=== PATIENT | female | born 2000 | race Caucasian/White ===

== ENCOUNTER 2020-05-27 21:39 | Emergency (ER) | payer MEDICAID, SELFPAY ==
[2020-05-27 21:51] VITALS: BP 124/75; PULSE 80; RESP 18; TEMP 36.9; O2SAT 98; BMI 25.6
--- NOTE | 2020-05-27 21:58 | ED.GENADULT ---
HPI - General Adult General Chief complaint: General Medical Stated complaint: Covid Swap Time Seen by Provider: 05/27/20 21:53 Source: patient Mode of arrival: ambulatory Limitations: no limitations History of Present Illness HPI narrative: patient comes to the emergency room requesting a COVID 19 test. Patient states tomorrow at 06:00 she has a flight to [place] and she is required to show approved of a COVID test when she gets there. patient denies any symptoms , patient denies being in contact with anyone who has recently tested positive for COVID-19. Related Data Allergies Allergy/AdvReac Type Severity Reaction Status Date / Time Penicillins [PENICILLINS] Allergy Severe ANGIOEDEMA Verified 05/27/20 21:51 Review of Systems Review of Systems: Constitutional : No Weight loss, No Fever, No Chills, No Night Sweats, No Fatigue, No Malaise ENT/Mouth : No Hearing loss, No Ear Pain, No Nasal Congestion, No Sinus Pain, No Hoarseness, No sore throat, No Rhinorrhea, No Swallowing Difficulty Eyes: No Eye Pain, No Swelling, No Redness, No Foreign Body, No Discharge, No Vision Changes Cardiovascular : No Chest Pain, No SOB, No Dyspnea on Exertion, No Orthopnea, No Edema, No Palpitations Respiratory : No Cough, No Sputum, No Wheezing, No Smoke Exposure, No Dyspnea Gastrointestinal : No Nausea, No Vomiting, No Diarrhea, No Constipation, No abdominal Pain, No Hematochezia, No Melena Genitourinary : no irregular bleeding, No Dysuria, No Urinary Frequency, No Hematuria, No Urinary Incontinence, No Urgency, No Flank Pain, No Urinary Flow Changes, No Hesitancy Musculoskeletal : No joint pain, No Myalgias, No Joint Swelling Skin : No Skin Lesions, No rash Neuro : No Weakness, No Numbness, No Paresthesias, No Loss of Consciousness, No Dizziness, No Headache Psych : No Anxiety/Panic, No Depression, No SI/HI/AH/VH, No Social Issues, Heme/Lymph: No Bruising, No Bleeding,No Lymphadenopathy Endocrine : No Polyuria, No Polydipsia, No Temperature Intolerance PMFSH Past Medical History Medical History Asthma Social History Social History Alcohol intake: never Smoking Status: Never smoker Use of substances other than those prescribed or required for medical reasons: No Advance Directives: No Physical Exam Vital Signs: Vital Signs: Last Vital Signs Temp 98.4 F 05/27/20 21:51 Pulse 80 05/27/20 21:51 Resp 18 05/27/20 21:51 BP 124/75 05/27/20 21:51 Pulse Ox 98 05/27/20 21:51 Body Mass Index 25.6 Appearance: Alert. Oriented X3. No acute distress. Eyes: Pupils equal, round and reactive to light. ENT: Pharynx normal. Neck: Normal inspection. Neck supple. No lymph nodes noted. No crepitus CVS: Normal heart rate and rhythm. Pulses normal. Normal S1 and S2 Respiratory: No respiratory distress. Breath sounds normal. No Wheezing. No rales Abdomen: Soft and nontender. No rigidity. No distention. good BS x4 Skin: Skin warm and dry. Normal skin color. Normal skin turgor. Extremities: No lower extremity edema. No lower extremity edema. No Lacerations. No Rash Neuro: Oriented X 3. No motor deficit. No sensory deficit. Moving all extermities. No slurred speech. Course Course Course Narrative: I discussed with the patient that the COVID results will be available within 72 hours. Patient states that she is okay with the results being 72 hours, she needs to show prove once she is in [place] Discharge Plan Discharge Clinical Impression: Normal physical exam Patient Disposition: Home, Self-Care Instructions: Normal Exam (ED) Additional Instructions: your COVID results will be available within 72 hours, he will receive a phone call with your results. Please follow CDC guidelines for traveling.
== END 2020-05-28 01:11 | disposition home or self-care (01) ==
PROVIDERS: Emergency Provider Emergency Medicine
DX: Z20.828 Contact with and (suspected) exposure to other viral communicable diseases (principal)
CPT/HCPCS: 99283; 99284; U0003

== ENCOUNTER 2020-07-22 17:18 | Emergency (ER) | payer MEDICAID, SELFPAY | END 2020-07-22 19:05 | disposition left against medical advice (07) | PROVIDERS: Emergency Provider Emergency Medicine | DX: U07.1 COVID-19 (principal) ==

== ENCOUNTER 2020-07-25 16:59 | Outpatient (REF) | payer MEDICAID, SELFPAY | END 2020-07-25 17:00 | disposition home or self-care (01) | LOC: HO.LAB 16:59 | PROVIDERS: PCP Registered Nurse; Visit Provider Internal Medicine | DX: Z20.822 Contact with and (suspected) exposure to COVID-19 (principal) | CPT/HCPCS: 36415; C9803; U0003 ==

== ENCOUNTER → 2020-07-27 15:05 | Outpatient (BNVA) | payer MEDICAID, SELFPAY | PROVIDERS: PCP Registered Nurse; Visit Provider Obstetrics & Gynecology | DX: Z76.89 Persons encountering health services in other specified circumstances (principal) ==

== ENCOUNTER → 2020-07-28 14:59 | Outpatient (BNVA) | payer MEDICAID, SELFPAY | PROVIDERS: Visit Provider Obstetrics & Gynecology ==

== ENCOUNTER 2020-08-09 11:27 | Outpatient (REF) | payer MEDICAID, SELFPAY ==
--- NOTE | 2020-08-09 11:38 | US_ITS ---
EXAMINATION: PELVIC ULTRASOUND CLINICAL INFORMATION: Follow up ovarian cysts COMPARISON: Previous CT of the abdomen and pelvis most recent March 2020 and pelvic ultrasound most recent November 2019 TECHNIQUE: Transabdominal and transvaginal pelvic ultrasound was performed. Transvaginal exam was performed for better visualization of the the uterus and ovaries. FINDINGS: The uterus is anteverted and measures 7.2 x 3 x 4.4 cm in dimension. No focal uterine lesion is seen. Endometrial thickness is normal estimated at 0.6 cm. The cervix is normal. The right ovary is enlarged and measures 4 x 2.1 x 3.5 cm, volume 21 mL. There are 2 complex right ovarian cysts. There is a 2.7 x 2.2 x 3.2 cm complex cyst with slightly thickened irregular wall and internal echoes. There is a second smaller 2.2 x 2 x 1.7 cm complex cyst with slightly thickened wall and internal echoes. This is increased from November 2017 ultrasound when a single 1.6 x 1.6 x 1.5 cm complex cyst was seen. The left ovary is enlarged and measures 7.4 x 4.9 x 5.1 cm, volume 97 mL. There is a 5.5 x 4.3 x 5 cm complex left ovarian cyst with low-level internal echoes. This is increased in size from 2.6 x 1.4 x 2.4 cm on previous November 2019 ultrasound exam. There is a smaller left ovarian 1 cm complex cyst with slightly thickened wall and internal echoes. There is a 1.1 cm simple left paraovarian or adnexal cyst. There is no fluid in the pelvis. US/US pelvic complete IMPRESSION: Enlarged ovaries with bilateral complex ovarian cysts. These are increased in size and number compared to previous pelvic ultrasound November 2019. This is similar to most recent CT March 2020. Endometriosis should be considered. Neoplasm cannot be excluded.
[2020-08-09 11:42] LABS: Hematocrit 38.1 % (37-47); Hemoglobin 11.8 g/dl (12.0-16.0); Mean Corpuscular Hemoglobin 24.4 pg (27.0-33.0); Mean Corpuscular Volume 78.7 fL (80-98); Mean Platelet Volume 9.8 fL (9.4-12.3); Platelet Count 246 X10*3/uL (160-400); Red Blood Count 4.84 X10*6/uL (4.20-5.50); Red Cell Distribution Width 15.7 % (11.0-16.0); White Blood Count 6.4 X10*3/uL (4.8-10.8)
== END 2020-08-09 11:28 | disposition home or self-care (01) ==
LOC: HO.US 11:27
PROVIDERS: PCP Registered Nurse; Visit Provider Obstetrics & Gynecology
DX: N83.209 Unspecified ovarian cyst, unspecified side (principal)
CPT/HCPCS: 36415; 76830; 76856; 85027

== ENCOUNTER 2020-08-10 14:01 | Outpatient (REF) | payer MEDICAID, SELFPAY ==
[2020-08-11 06:12] LABS: CA-125 33 U/mL (<35)
== END 2020-08-10 14:02 | disposition home or self-care (01) ==
LOC: HO.LAB 14:01
PROVIDERS: PCP Registered Nurse; Visit Provider Obstetrics & Gynecology
DX: N83.291 Other ovarian cyst, right side (principal); Z88.0 Allergy status to penicillin; R10.2 Pelvic and perineal pain
CPT/HCPCS: 36415; 86304; 99212

== ENCOUNTER → 2020-09-07 08:18 | Outpatient (BNVA) | payer MEDICAID, SELFPAY | PROVIDERS: PCP Registered Nurse; Visit Provider Obstetrics & Gynecology | DX: N90.89 Other specified noninflammatory disorders of vulva and perineum (principal) | CPT/HCPCS: 56405; 99212 ==

== ENCOUNTER → 2020-09-08 08:50 | Outpatient (BNVA) | payer MEDICAID, SELFPAY | PROVIDERS: PCP Registered Nurse; Visit Provider Advanced Practice Midwife | DX: N64.4 Mastodynia (principal); N63.0 Unspecified lump in unspecified breast | CPT/HCPCS: 99212 ==

== ENCOUNTER 2020-09-14 12:52 | Outpatient (REF) | payer MEDICAID, SELFPAY ==
--- NOTE | ~2020-09-14 | US_ITS ---
EXAMINATION: US DIAGNOSTIC ULTRASOUND BREAST, RIGHT CLINICAL INFORMATION: Mastodynia. COMPARISON: None. TECHNIQUE: Ultrasound of the breast is performed with real-time lind scale imaging and color Doppler. FINDINGS: There is no focal suspicious finding. There is no solid mass, architectural abnormality, duct ectasia, or edema in the soft tissue planes. Results are discussed with the patient at time of visit. US/US breast RT limited IMPRESSION: No specific ultrasound findings to suggest malignancy of the right breast. ASSESSMENT: BI-RADS 1: Negative RECOMMENDATION: Clinical management
--- NOTE | ~2020-09-14 | US_ITS ---
EXAMINATION: US DIAGNOSTIC ULTRASOUND BREAST, LEFT CLINICAL INFORMATION: Mastoiditis. COMPARISON: None. TECHNIQUE: Ultrasound of the breast is performed with real-time lind scale imaging and color Doppler. FINDINGS: There is no focal suspicious finding. There is no solid mass, architectural abnormality, duct ectasia, or edema in the soft tissue planes. Results are discussed with the patient at time of visit. US/US breast LT limited IMPRESSION: No specific ultrasound findings to suggest malignancy of the left breast. ASSESSMENT: BI-RADS 1: Negative RECOMMENDATION: Clinical management
== END 2020-09-14 12:53 | disposition home or self-care (01) ==
LOC: HO.MAMMO 12:52
PROVIDERS: Visit Provider Advanced Practice Midwife
DX: N64.4 Mastodynia (principal); N63.25 Unspecified lump in the left breast, overlapping quadrants
CPT/HCPCS: 76642

== ENCOUNTER → 2020-09-22 11:29 | Outpatient (BNVA) | payer MEDICAID, SELFPAY | PROVIDERS: Visit Provider Advanced Practice Midwife ==

== ENCOUNTER → 2020-10-03 11:51 | Outpatient (BNVA) | payer MEDICAID, SELFPAY | PROVIDERS: Visit Provider Obstetrics & Gynecology ==

== ENCOUNTER 2020-10-10 18:54 | Emergency (ER) | payer MEDICAID, SELFPAY ==
--- NOTE | ~2020-10-10 | US_ITS ---
EXAMINATIONS: ULTRASOUND PELVIC, COMPLETE AND DOPPLER INTERROGATION CLINICAL INFORMATION: Right lower quadrant pain. Follow-up ovarian cyst. COMPARISON: 08/09/2020. TECHNIQUE: Transabdominal and transvaginal imaging was performed. Transvaginal imaging was performed for further evaluation of the endometrium and adnexa. Doppler interrogation spectral analysis was performed. FINDINGS: The uterus is of normal size and echogenicity measuring 8.4 x 3.6 x 5.5 cm. A regular homogeneous endometrium is identified measuring 1.1 cm. Both ovaries are of increased size and overall normal echogenicity. The right measures 4.2 x 2.5 x 3.1 cm for a volume of 17.0 cc. This measurement includes an approximately 1.5 x 1.2 x 1.4 cm right ovarian cyst with numerous internal echoes as well as a 2.7 x 2.2 x 2.0 cm cyst with a few internal echoes. The left measures 9.0 x 5.9 x 5.9 cm for a volume of 15.8 cc. This measurement includes an approximately 3.7 x 2.7 x 3.4 cm cyst with numerous internal septations and debris. As well, there is a paraovarian cyst measuring 1.2 x 0.9 x 1.0 cm. As well, there is an approximately 6.2 x 4.4 x 5.0 cm cyst with numerous internal echoes in a paraovarian location. Normal arterial and venous blood flow is present bilaterally. There is small amount of likely physiologic pelvic free fluid. US/US pelvic complete IMPRESSION: No ovarian torsion. Normal uterus and endometrium. Numerous bilateral ovarian cysts are present. The largest cyst is likely paraovarian on the left measuring 6.2 cm in greatest dimension. This compares to 5.6 cm on the prior exam. Many of the cysts contain septations and internal echoes. Consider a follow-up pelvic ultrasound in 3 months to follow the stability in the appearance and size of the aforementioned cysts.
[2020-10-10 20:24] VITALS: BP 122/74; PULSE 88; RESP 16; TEMP 37.1; O2SAT 100; BMI 25.9
[2020-10-10 20:54] LABS: MANUAL DIFF FLAG NO
[2020-10-10 20:56] LABS: Basophils Percent Auto 0.3 % (0-2); Eosinophils Absolute Auto 0.1 X10*3/uL (0.0-0.4); Eosinophils Percent Auto 1.3 % (0-4); Hematocrit 36.2 % (37-47); Hemoglobin 11.3 g/dl (12.0-16.0); Imm Gran Abs Auto 0.02 X10*3/uL (0.00-0.03); Imm Gran Pct Auto 0.2 % (0.0-0.4); Lymphocytes Absolute Auto 3.1 X10*3/uL (1.2-4.9); Lymphocytes Percent Auto 34.8 % (20-40); Mean Corpuscular HGB Conc 31.2 g/dl (31.0-35.0); Mean Corpuscular Hemoglobin 24.3 pg (27.0-33.0); Mean Corpuscular Volume 77.8 fL (80-98); Mean Platelet Volume 9.8 fL (9.4-12.3); Monocytes Absolute Auto 0.6 X10*3/uL (0.1-1.2); Monocytes Percent Auto 6.5 % (2-11); Neutrophils Absolute Auto 5.1 X10*3/uL (2.0-8.3); Neutrophils Percent Auto 56.9 % (45-73); Platelet Count 288 X10*3/uL (160-400); Red Blood Count 4.65 X10*6/uL (4.20-5.50); Red Cell Distribution Width 16.7 % (11.0-16.0)
[2020-10-10 20:59] LABS: Glucose Urine UA NEG (NEG); Leukocyte Esterase Urine TRACE (NEG); Nitrite Urine POS (NEG); UACC Culture Trigger YES; Urine Blood NEG (NEG); Urine Ketones NEG (NEG); Urine Protein NEG (NEG-TRACE)
[2020-10-10 21:02] LABS: Appearance Urine CLEAR; Color Urine YELLOW
[2020-10-10 21:07] LABS: UPreg QC Valid YES; Urine Pregnancy NEGATIVE (NEGATIVE)
[2020-10-10 21:11] LABS: Bacteria Urine 2+ /LPF; RBC Urine 0-2 /HPF (0); Squamous Epithelial Cell Urine 2+ /LPF
[2020-10-10 21:18] LABS: Anion Gap 15 (12-20); Blood Urea Nitrogen 10 mg/dL (9-16); Calcium 8.8 mg/dL (8.4-10.2); Carbon Dioxide 23 mmol/L (22-29); Chloride 104 mmol/L (96-108); Estimated Glomerular Filt Rate > 60; Glucose Random 90 mg/dL (60-115); Potassium 3.4 mmol/L (3.3-5.1); Sodium 139 mmol/L (135-145)
[2020-10-10 22:00] VITALS: BP 122/74; PULSE 88; RESP 16; TEMP 37.1; O2SAT 100
--- NOTE | 2020-10-10 23:04 | ED.ABDPAIN ---
HPI - Abdominal Pain General Chief Complaint: Abdominal Pain Stated Complaint: abd pain Time Seen by Provider: 10/10/20 23:04 Source: patient Mode of arrival: ambulatory Limitations: no limitations History of Present Illness HPI narrative: Patient with bilateral ovarian cyst complaining of pain in upper abdomen and lower abdomen since yesterday with nausea and vomiting vomited 2 times today. Also complaining of dysuria for last 2 days patient denies any fever no diarrhea patient does get this lower abdominal pain off and on for long time but feels pain in epigastric is new patient is able to eat without significant discomfort in upper abdomen no abdominal distention bowel movements are normal no hematuria no history of kidney stone or gallstones MD elicited complaint: abdominal pain Onset (ago): day(s) (2) Location: epigastric, RLQ and suprapubic Severity: mild Quality: cramping Radiation: epigastric Migration to: no migration Exacerbating factors: nothing Relieving factors: nothing Associated symptoms: nausea, vomiting and dysuria Treatments prior to arrival: NSAIDs Related Data Previous Rx's Medication Instructions Recorded L norgest/E estradiol-E estrad 1 tab PO DAILY 84 Days #84 ea 08/10/20 0.15 mg-30 mcg (84)/10 mcg(7) tabs,3mos nitrofurantoin monohyd/m-cryst 100 mg PO Q12H 7 Days #14 cap 10/11/20 [Macrobid] ondansetron 4 mg PO Q6-8H PRN #5 tab 10/11/20 Allergies Allergy/AdvReac Type Severity Reaction Status Date / Time Penicillins [PENICILLINS] Allergy Severe ANGIOEDEMA Verified 10/03/20 11:51 Review of Systems Review of Systems Constitutional : No Weight loss, No Fever, No Chills ENT/Mouth : No sore throat, No Rhinorrhea Eyes: No Eye Pain, No Swelling Cardiovascular : No Chest Pain, no palpitations Respiratory : No Cough, No Sputum, no shortness of breath Gastrointestinal : +Nausea, + Vomiting, No Diarrhea, + abdominal Pain, no black stools Genitourinary : + Dysuria, No Urinary Frequency Musculoskeletal : No joint pain, No Myalgias, No Joint Swelling Skin : No Skin Lesions, No rash Neuro : No Weakness, No Numbness, No Dizziness, No Headache Psych : No Anxiety/Panic, No Depression Heme/Lymph: No Bruising, No Lymphadenopathy Endocrine : No Polyuria, No Polydipsia All other systems reviewed and are negative Physical Exam Vital Signs: Vital Signs: Last Vital Signs Temp 98.8 F 10/11/20 00:00 Pulse 82 10/11/20 02:00 Resp 15 10/11/20 02:00 BP 117/76 10/11/20 02:00 Pulse Ox 100 10/11/20 02:00 Body Mass Index 25.9 Const: General: comfortable and no acute distress Orientation/consciousness: patient oriented x3 HENMT: Head: Yes normocephalic and Yes atraumatic Eyes: General: appearance normal, both eyes and all related structures Neck: Neck: Yes normal visual inspection and Yes full ROM Chest: Chest palpation & inspection: normal inspection of the chest Resp: Effort & Inspection: normal respiratory effort Auscultation: clear to auscultation bilaterally Cardio: Rate: regular rate Rhythm: regular rhythm Heart sounds: S1 normal heart sound present and S2 normal heart sound present GI: Inspection: Yes normal to inspection Palpation (GI): Soft to palpation and Tenderness to palpation present (GI) in the epigastrum, in the RLQ and suprapubicly Auscultation: normal bowel sounds : General: Yes no CVA tenderness Back/Spine/Pelvis: Back: no CVA tenderness Thoracic/Lumbar Spine: thoracic and lumbar spine normal to inspection Skin: General skin exam: no rashes or lesions noted Neuro: General: patient oriented x3 and no focal motor deficits Extrem: General: Yes full ROM and Yes no calf tenderness MDM - Abdominal Pain MDM Narrative Medical decision making narrative: Patient with bilateral ovarian cyst came with lower abdominal pain also found to have UTI. Ultrasound showed increased size with ovarian cyst b/l. Patient already on control pills and followed with Dr. Andres corporate recycling manager. Advised to follow up with him patient's pain got better taking p.o. fluids Differential Diagnosis Differential diagnosis: Likely abdominal pain Medical Records Attestation: I reviewed the patient's medical records. Lab Data Attestation: I reviewed the patient's lab results. Result diagrams: 10/10/20 20:42 10/10/20 20:42 Labs: Lab Results 10/10/20 10/10/20 10/10/20 Range/Units 20:42 20:42 20:42 WBC 9.0 (4.8-10.8) X10*3/uL RBC 4.65 (4.20-5.50) X10*6/uL Hgb 11.3 L (12.0-16.0) g/dl Hct 36.2 L (37-47) % MCV 77.8 L (80-98) fL MCH 24.3 L (27.0-33.0) pg MCHC 31.2 (31.0-35.0) g/dl RDW 16.7 H (11.0-16.0) % Plt Count 288 (160-400) X10*3/uL MPV 9.8 (9.4-12.3) fL Immature Gran % (Auto) 0.2 (0.0-0.4) % Neut % (Auto) 56.9 (45-73) % Lymph % (Auto) 34.8 (20-40) % [place] % (Auto) 6.5 (2-11) % Eos % (Auto) 1.3 (0-4) % Baso % (Auto) 0.3 (0-2) % Lymph # (Auto) 3.1 (1.2-4.9) X10*3/uL [place] # (Auto) 0.6 (0.1-1.2) X10*3/uL Eos # (Auto) 0.1 (0.0-0.4) X10*3/uL Baso # (Auto) 0.0 (0.0-0.2) X10*3/uL Abs Immat Gran (auto) 0.02 (0.00-0.03) X10*3/uL Absolute Neuts (auto) 5.1 (2.0-8.3) X10*3/uL Absolute Nucleated RBC 0.000 (0.0-0.012) X10*3/uL Nucleated RBC % (auto) 0.0 (0.0-0.2) /100WBC Sodium 139 (135-145) mmol/L Potassium 3.4 (3.3-5.1) mmol/L Chloride 104 (96-108) mmol/L Carbon Dioxide 23 (22-29) mmol/L Anion Gap 15 (12-20) BUN 10 (9-16) mg/dL Creatinine 0.77 (0.5-1.4) mg/dL Estim Creat Clear Calc 101.0 Estimated GFR > 60 Random Glucose 90 (60-115) mg/dL Calcium 8.8 (8.4-10.2) mg/dL Total Bilirubin 0.4 (0.0-1.0) mg/dL Direct Bilirubin < 0.2 (0.0-0.5) mg/dL AST 13 (5-31) U/L ALT 10 (0-31) U/L Alkaline Phosphatase 68 (39-117) U/L Total Protein 7.5 (6.5-8.0) g/dL Albumin 4.3 (3.5-5.0) g/dL Lipase 20 (8-78) U/L Urine Color YELLOW Urine Appearance CLEAR Urine pH 6.0 (5.0-8.0) Ur Specific Ruby 1.010 (1.005-1.025) Urine Protein NEG (NEG-TRACE) MG/DL Urine Glucose (UA) NEG (NEG) MG/DL Urine Ketones NEG (NEG) MG/DL Urine Blood NEG (NEG) Urine Nitrite POS H (NEG) Ur Leukocyte Esterase TRACE H (NEG) Urine RBC 0-2 (0) /HPF Urine WBC 1-4 (0-4) /HPF Ur Squamous Epith Cells 2+ /LPF Urine Bacteria 2+ /LPF Urine Test (NEGATIVE) 10/10/20 Range/Units 20:42 WBC (4.8-10.8) X10*3/uL RBC (4.20-5.50) X10*6/uL Hgb (12.0-16.0) g/dl Hct (37-47) % MCV (80-98) fL MCH (27.0-33.0) pg MCHC (31.0-35.0) g/dl RDW (11.0-16.0) % Plt Count (160-400) X10*3/uL MPV (9.4-12.3) fL Immature Gran % (Auto) (0.0-0.4) % Neut % (Auto) (45-73) % Lymph % (Auto) (20-40) % [place] % (Auto) (2-11) % Eos % (Auto) (0-4) % Baso % (Auto) (0-2) % Lymph # (Auto) (1.2-4.9) X10*3/uL [place] # (Auto) (0.1-1.2) X10*3/uL Eos # (Auto) (0.0-0.4) X10*3/uL Baso # (Auto) (0.0-0.2) X10*3/uL Abs Immat Gran (auto) (0.00-0.03) X10*3/uL Absolute Neuts (auto) (2.0-8.3) X10*3/uL Absolute Nucleated RBC (0.0-0.012) X10*3/uL Nucleated RBC % (auto) (0.0-0.2) /100WBC Sodium (135-145) mmol/L Potassium (3.3-5.1) mmol/L Chloride (96-108) mmol/L Carbon Dioxide (22-29) mmol/L Anion Gap (12-20) BUN (9-16) mg/dL Creatinine (0.5-1.4) mg/dL Estim Creat Clear Calc Estimated GFR Random Glucose (60-115) mg/dL Calcium (8.4-10.2) mg/dL Total Bilirubin (0.0-1.0) mg/dL Direct Bilirubin (0.0-0.5) mg/dL AST (5-31) U/L ALT (0-31) U/L Alkaline Phosphatase (39-117) U/L Total Protein (6.5-8.0) g/dL Albumin (3.5-5.0) g/dL Lipase (8-78) U/L Urine Color Urine Appearance Urine pH (5.0-8.0) Ur Specific Ruby (1.005-1.025) Urine Protein (NEG-TRACE) MG/DL Urine Glucose (UA) (NEG) MG/DL Urine Ketones (NEG) MG/DL Urine Blood (NEG) Urine Nitrite (NEG) Ur Leukocyte Esterase (NEG) Urine RBC (0) /HPF Urine WBC (0-4) /HPF Ur Squamous Epith Cells /LPF Urine Bacteria /LPF Urine Test NEGATIVE (NEGATIVE) Imaging Data US - abdomen: Radiologist's impression: Ordering Physician: Ramana Bucio MD Date of Service: 10/10/20 Procedure(s): US pelvic complete Accession Number(s): [id number] cc: Ramana Bucio MD~ EXAMINATIONS: ULTRASOUND PELVIC, COMPLETE AND DOPPLER INTERROGATION CLINICAL INFORMATION: Right lower quadrant pain. Follow-up ovarian cyst. COMPARISON: 08/09/2020. TECHNIQUE: Transabdominal and transvaginal imaging was performed. Transvaginal imaging was performed for further evaluation of the endometrium and adnexa. Doppler interrogation spectral analysis was performed. FINDINGS: The uterus is of normal size and echogenicity measuring 8.4 x 3.6 x 5.5 cm. A regular homogeneous endometrium is identified measuring 1.1 cm. Both ovaries are of increased size and overall normal echogenicity. The right measures 4.2 x 2.5 x 3.1 cm for a volume of 17.0 cc. This measurement includes an approximately 1.5 x 1.2 x 1.4 cm right ovarian cyst with numerous internal echoes as well as a 2.7 x 2.2 x 2.0 cm cyst with a few internal echoes. The left measures 9.0 x 5.9 x 5.9 cm for a volume of 15.8 cc. This measurement includes an approximately 3.7 x 2.7 x 3.4 cm cyst with numerous internal septations and debris. As well, there is a paraovarian cyst measuring 1.2 x 0.9 x 1.0 cm. As well, there is an approximately 6.2 x 4.4 x 5.0 cm cyst with numerous internal echoes in a paraovarian location. Normal arterial and venous blood flow is present bilaterally. There is small amount of likely physiologic pelvic free fluid. US/US pelvic complete IMPRESSION: No ovarian torsion. Normal uterus and endometrium. Numerous bilateral ovarian cysts are present. The largest cyst is likely paraovarian on the left measuring 6.2 cm in greatest dimension. This compares to 5.6 cm on the prior exam. Many of the cysts contain septations and internal echoes. Consider a follow-up pelvic ultrasound in 3 months to follow the stability in the appearance and size of the aforementioned cysts. Discharge Plan Discharge Clinical Impression: Complex cyst of both ovaries UTI (urinary tract infection) Qualifiers: Urinary tract infection type: acute cystitis Hematuria presence: without hematuria Qualified Code(s): N30.00 - Acute cystitis without hematuria Patient Disposition: Home, Self-Care Instructions: Ovarian Cyst (ED), Urinary Tract Infection in Women (ED) Additional Instructions: Follow-up with corporate recycling manager Pain medication as advised Take antibiotic for UTI Prescriptions: New nitrofurantoin monohyd/m-cryst [Macrobid] 100 mg capsule 100 mg PO Q12H 7 Days Qty: 14 RF: 0 ondansetron 4 mg tablet,disintegrating 4 mg PO Q6-8H PRN (Reason: nausea and vomiting) Qty: 5 RF: 0 No Action L norgest/e.estradiol-e.estrad [Seasonique] 0.15 mg-30 mcg (84)/10 mcg (7) tablets,dose pack,3 month 1 tab PO DAILY 84 Days Qty: 84 RF: 0 Interventions: ED Discharge Assessment Last Done: 10/11/20 02:29 Discharge Date/Time: 10/11/20 03:04 Print Language: Sinhala [facility] Past Medical History Medical History (Updated 10/11/20 @ 02:18 by Ramana Bucio MD) Asthma Complex cyst of both ovaries Family History Family History Maternal Grandmother Uterine cancer Social History Social History Alcohol intake: never Smoking Status: Never smoker Use of substances other than those prescribed or required for medical reasons: No Advance Directives: No Sexual orientation: Straight/Heterosexual Gender identity: female
[2020-10-10] MEDS: Phenazopyridine HCL 200 MG TABLET PO (23:45)
[2020-10-10] MEDS: Nitrofurantoin Monohyd/M-Cryst 100 MG CAPSULE PO (23:45)
[2020-10-10 23:52] LABS: Alanine Aminotransferase 10 U/L (0-31); Albumin Level 4.3 g/dL (3.5-5.0); Alkaline Phosphatase 68 U/L (39-117); Aspartate Amino Transferase 13 U/L (5-31); Bilirubin Direct < 0.2 mg/dL (0.0-0.5); Bilirubin Total 0.4 mg/dL (0.0-1.0); Lipase 20 U/L (8-78); Total Protein 7.5 g/dL (6.5-8.0)
[2020-10-11] VITALS: BP 122/74; PULSE 88; RESP 16; TEMP 37.1; O2SAT 100
--- NOTE | 2020-10-11 00:02 | PC.NURSE ---
Patient currently at ultrasound and patient medicated per emar as noted
[2020-10-11 02:00] VITALS: BP 117/76; PULSE 82; RESP 15; O2SAT 100
[2020-10-11] MEDS: Famotidine/PF 20 MG/2 ML VIAL IVPUSH (02:11)
[2020-10-11] MEDS: Magnesium Hydrox/Alum Hydrox 30 ML ORAL.SUSP PO (02:11)
[2020-10-11] MEDS: Ketorolac Tromethamine 30 MG/ML VIAL IVPUSH (02:11)
== END 2020-10-11 03:04 | disposition home or self-care (01) ==
PROVIDERS: Emergency Provider Internal Medicine
DX: N30.00 Acute cystitis without hematuria (principal); N83.202 Unspecified ovarian cyst, left side; N83.201 Unspecified ovarian cyst, right side; R10.10 Upper abdominal pain, unspecified; R10.13 Epigastric pain; Z79.899 Other long term (current) drug therapy
CPT/HCPCS: 36415; 76830; 76856; 80048; 80076; 81001; 81003; 81025; 83690; 85025; 87086; 87088; 87186; 96374; 96375; 99284; J1885

== ENCOUNTER 2020-11-13 10:27 | Outpatient (REF) | payer MEDICAID, SELFPAY ==
[2020-11-14 06:00] LABS: CT PCR NOT DETECTED (Not Detect.); NG PCR NOT DETECTED (Not Detect.)
[2020-11-23 07:17] LABS: HPV mRNA E6/E7 Detected (Not Detected)
== END 2020-11-13 10:28 | disposition home or self-care (01) ==
LOC: HO.LAB 10:27
PROVIDERS: Visit Provider Obstetrics & Gynecology
DX: Z01.419 Encounter for gynecological examination (general) (routine) without abnormal findings (principal); N83.292 Other ovarian cyst, left side; N83.291 Other ovarian cyst, right side; Z88.0 Allergy status to penicillin; Z79.899 Other long term (current) drug therapy
CPT/HCPCS: 87491; 87591; 87624; 88141; 88142

== ENCOUNTER 2020-12-08 13:37 | Outpatient (REF) | payer MEDICAID, SELFPAY | END 2020-12-08 13:38 | disposition home or self-care (01) | LOC: HO.LAB 13:37 | PROVIDERS: Visit Provider Obstetrics & Gynecology | DX: R87.612 Low grade squamous intraepithelial lesion on cytologic smear of cervix (LGSIL) (principal) | CPT/HCPCS: 57454; 88305 ==

== ENCOUNTER → 2020-12-20 13:36 | Outpatient (BNVA) | payer MEDICAID, SELFPAY | PROVIDERS: Visit Provider Obstetrics & Gynecology | DX: R87.612 Low grade squamous intraepithelial lesion on cytologic smear of cervix (LGSIL) (principal) | CPT/HCPCS: 99212 ==

== ENCOUNTER 2021-02-09 21:31 | Emergency (ER) | payer MEDICAID, SELFPAY ==
--- NOTE | ~2021-02-09 | XR_ITS ---
EXAMINATION: XR CHEST CLINICAL INFORMATION: Productive cough COMPARISON: Prior chest March 2020 TECHNIQUE: Frontal view of the chest was obtained. FINDINGS: No significant abnormality is noted involving the heart, lungs, mediastinum, bony thorax or soft tissues. XR/XR chest 1V IMPRESSION: Unremarkable examination.
[2021-02-09 21:48] VITALS: BP 121/79; PULSE 102; RESP 20; TEMP 36.9; O2SAT 99; BMI 26.2
--- NOTE | 2021-02-09 22:10 | ED_ITS ---
HPI - General Adult General Chief complaint: General Medical Stated complaint: fever, runny nose Time Seen by Provider: 02/09/21 22:10 Source: patient Mode of arrival: ambulatory Limitations: language barrier (Patient speaks Lithuanian only, park interpreter was used) History of Present Illness HPI narrative: 20-year-old female who presents emergency department for evaluation of cough, chest pain, shortness of breath, fatigue and dyspnea on exertion. Patient states she has been sick for 2 days. She states she has a cough which is productive of thick, yellow sputum with no blood in the sputum. She states that she has chest pain only with coughing, she points to her left chest when asked to localize this pain. The pain is [id number]-[id number] in intensity. She states that she has shortness of breath and mild dyspnea on exertion. She states she is feeling very tired and fatigued. Patient does have a history of asthma and has been using her albuterol inhaler for shortness of breath with some relief. She denied fever or chills. She denied nausea, vomiting. She states she has had loose stools but she is taking a laxative. Patient had a laparoscopic surgery for an ovarian cyst approximately 1 month prior. She has been vaccinated for COVID-19, she received the Architizer vaccine with her 2nd dose being 2 months prior. Related Data Previous Rx's Medication Instructions Recorded L norgest/E estradiol-E estrad 1 tab PO DAILY 84 Days #84 ea 08/10/20 0.15 mg-30 mcg (84)/10 mcg(7) tabs,3mos (Seasonique) nitrofurantoin 100 mg PO Q12H 7 Days #14 cap 10/11/20 monohydrate/macrocrystals 100 mg capsule (Macrobid) ondansetron 4 mg disintegrating 4 mg PO Q6-8H PRN #5 tab 10/11/20 tablet azithromycin 250 mg tablet See Rx Instructions .ROUTE 02/09/21 (Zithromax Z-Ruy) .COMPLEX #6 tab Allergies Allergy/AdvReac Type Severity Reaction Status Date / Time Penicillins [PENICILLINS] Allergy Severe ANGIOEDEMA Verified 02/09/21 21:48 Review of Systems Review of Systems: Yes all other systems are reviewed and are negative PMFSH Past Medical History [facility] Narrative: Past medical history: Asthma. Social history: Ovarian cyst laparoscopic surgery 1 month prior. Social history: She denies tobacco, alcohol and drug use. Medical History Asthma Complex cyst of both ovaries Family History Family History Maternal Grandmother Uterine cancer Social History Social History Alcohol intake: never Advance Directives: No Advance Directives Information Provided: Yes Patient : No Sexual orientation: Straight/Heterosexual Gender identity: female Physical Exam Vital Signs: Vital Signs: Last Vital Signs Temp 98.5 F 02/09/21 21:48 Pulse 102 H 02/09/21 21:48 Resp 20 02/09/21 21:48 BP 121/79 02/09/21 21:48 Pulse Ox 99 02/09/21 21:48 Body Mass Index 26.2 Course Course Course Narrative: 20-year-old female with a history of asthma who presents emergency department for evaluation of a cough, shortness of breath, chest pain, dyspnea on exertion and fatigue. Vital signs revealed tachycardia with a pulse of 102, otherwise unremarkable. Physical examination did reveal left-sided chest wall tenderness otherwise was unremarkable. COVID-19 test was negative. Chest x-ray revealed no evidence of pneumonia. Patient's presentation is consistent with bronchitis. I do not think that the patient has a pulmonary embolism is the cause for symptoms. Patient will be treated with Zithromax Z- Ruy, she was given her 1st dose here in the emergency department. The patient was given verbal and printed instructions prior to discharge. The patient was advised to follow-up with her PCP in 2 days and to return to the emergency department if her symptoms get worse or if she develop any new symptoms that are concerning to her. Medical Decision Making Lab Data Labs: Lab Results 02/09/21 Range/Units 22:01 COVID-19 (CLARITZA) Negative (Negative) COVID-19 Clin Com See Note Discharge Plan Discharge Clinical Impression: Acute bronchitis Qualifiers: Bronchitis organism: unspecified organism Qualified Code(s): J20.9 - Acute bronchitis, unspecified Patient Disposition: Home, Self-Care Prescriptions: New azithromycin [Zithromax Z-Ruy] 250 mg tablet See Rx Instructions .ROUTE .COMPLEX Qty: 6 RF: 0 No Action nitrofurantoin monohyd/m-cryst [Macrobid] 100 mg capsule 100 mg PO Q12H 7 Days Qty: 14 RF: 0 ondansetron 4 mg tablet,disintegrating 4 mg PO Q6-8H PRN (Reason: nausea and vomiting) Qty: 5 RF: 0 L norgest/e.estradiol-e.estrad [Seasonique] 0.15 mg-30 mcg (84)/10 mcg (7) tablets,dose pack,3 month 1 tab PO DAILY 84 Days Qty: 84 RF: 0
[2021-02-09 22:22] LABS: COVID-19 Test Negative (Negative)
[2021-02-09] MEDS: Azithromycin 500 MG TABLET PO (23:25)
== END 2021-02-09 23:44 | disposition home or self-care (01) ==
PROVIDERS: Emergency Provider Emergency Medicine Emergency Medical Services
DX: J20.9 Acute bronchitis, unspecified (principal); Z20.822 Contact with and (suspected) exposure to COVID-19; R53.83 Other fatigue
CPT/HCPCS: 36415; 71045; 87635; 99283

== ENCOUNTER 2021-04-02 09:32 | Outpatient (REF) | payer MEDICAID, SELFPAY ==
[2021-04-02 20:50] LABS: CT PCR DETECTED (Not Detect.); NG PCR NOT DETECTED (Not Detect.)
== END 2021-04-02 09:33 | disposition home or self-care (01) ==
LOC: HO.LAB 09:32
PROVIDERS: Visit Provider Obstetrics & Gynecology
DX: R10.2 Pelvic and perineal pain (principal)
CPT/HCPCS: 87491; 87591; 99212

== ENCOUNTER 2021-04-06 14:19 | Outpatient (REF) | payer MEDICAID, SELFPAY ==
[2021-04-06 15:48] LABS: Appearance Urine CLEAR; Color Urine YELLOW; Glucose Urine UA NEG (NEG); Leukocyte Esterase Urine TRACE (NEG); Nitrite Urine NEG (NEG); PH 6.5 (5.0-8.0); UACC Culture Trigger YES; Urine Blood NEG (NEG); Urine Ketones NEG (NEG); Urine Protein NEG (NEG-TRACE)
[2021-04-06 16:04] LABS: Squamous Epithelial Cell Urine 2+ /LPF
[2021-04-06 16:05] LABS: Bacteria Urine 1+ /LPF
[2021-04-06 16:07] LABS: RBC Urine 0 /HPF (0); WBC Urine 0-2 /HPF (0-4)
[2021-04-09 08:40] LABS: HBsAGNum1 0.22 S/CO (0.00-0.99); Hepatitis B Surface Antigen Negative (Negative); ~HepC Num1 0.24 S/CO (0.00-0.79); ~Hepatitis C Antibody Nonreactive (Nonreactive)
[2021-04-09 09:01] LABS: HIV AB/AG Nonreactive (Nonreactive); HIV Num 1 0.09 S/CO (0.00-0.99)
[2021-04-09 10:10] LABS: Syphilis Screen Nonreactive (Nonreactive)
== END 2021-04-06 14:20 | disposition home or self-care (01) ==
LOC: HO.LAB 14:19
PROVIDERS: PCP Registered Nurse; Visit Provider Obstetrics & Gynecology
DX: Z11.4 Encounter for screening for human immunodeficiency virus [HIV] (principal); A74.9 Chlamydial infection, unspecified
CPT/HCPCS: 36415; 81001; 86780; 86803; 87086; 87340; 87389

== ENCOUNTER 2021-04-11 10:20 | Outpatient (REF) | payer MEDICAID, SELFPAY ==
--- NOTE | ~2021-04-11 | CT_ITS ---
EXAMINATION: CT ABDOMEN AND PELVIS WITH CONTRAST CLINICAL INFORMATION: Pelvic and perineal pain COMPARISON: Previous CT scans most recent March 2020 and pelvic ultrasound most recent September 2020 TECHNIQUE: Multidetector volumetric images were obtained from the superior aspect of the liver through the pubic symphysis following administration 85 mL of Omnipaque 350 intravenous contrast. Sagittal and coronal reformatted images were obtained on the technologist's workstation. Oral contrast: Yes This CT examination was performed using dose optimization techniques as appropriate, variously including the following: *Automated exposure control *Adjustment of mA and/or kV according to patient size (this includes techniques or standardized protocols for targeted exams where dose is matched to indication/reason for exam; i.e. extremities or head) *Use of iterative reconstruction technique DLP: 383 mGy-cm FINDINGS: LUNG BASES: The visualized lung bases are unremarkable. LIVER, GALLBLADDER, AND BILIARY TREE: The liver is slightly low in attenuation suggestive of mild fatty infiltration. No focal hepatic lesion or biliary ductal dilatation is present. The gallbladder is unremarkable with no evidence of radiopaque gallstones, gallbladder wall thickening, or obvious pericholecystic inflammatory changes. PANCREAS: Unremarkable. SPLEEN: Unremarkable. ADRENAL GLANDS: Unremarkable. KIDNEYS AND URETERS: The kidneys are normal in size, shape, and attenuation. No hydronephrosis, hydroureter, or calculi seen. No perinephric stranding. BLADDER: Unremarkable. GASTROINTESTINAL TRACT: The cecum is located in the right pelvis. The small and large bowel are otherwise unremarkable. The appendix is unremarkable. ABDOMINAL WALL: No significant hernia is appreciated. LYMPH NODES: Normal. VASCULAR: Unremarkable. PELVIC VISCERA: There is a 1.2 x 1.4 cm right perineal cyst. This is slightly decreased in size from most recent exam March 2020 when this measured 1.1 x 3 cm in transverse and AP dimension. There are bilateral ovarian cysts. These are similar to previous exams. There is a 5 cm simple appearing left adnexal cyst. There is a complex appearing 3.3 x 4.1 cm right adnexal cyst with slightly thickened wall and septation. The uterus is displaced to the right by the left adnexal cyst. There is trace fluid in the pelvis. OSSEOUS STRUCTURES: Unremarkable. CT/CT abdomen pelvis w con IMPRESSION: 1.2 x 1.4 cm right perineal cyst. Bilateral ovarian cysts similar to previous exams.
[2021-04-11] MEDS: iohexoL 350 MG/ML 100 ML INFUS..BTL 85 ML IV (11:15)
== END 2021-04-11 10:21 | disposition home or self-care (01) ==
LOC: HO.CT 10:20
PROVIDERS: PCP Registered Nurse; Visit Provider Obstetrics & Gynecology
DX: R10.2 Pelvic and perineal pain (principal)
CPT/HCPCS: 74177; Q9967

== ENCOUNTER 2021-04-19 15:29 | Outpatient (REF) | payer MEDICAID, SELFPAY ==
[2021-04-20 02:47] LABS: CT PCR NOT DETECTED (Not Detect.); NG PCR NOT DETECTED (Not Detect.)
== END 2021-04-19 15:30 | disposition home or self-care (01) ==
LOC: HO.LAB 15:29
PROVIDERS: PCP Registered Nurse; Visit Provider Obstetrics & Gynecology
DX: N75.0 Cyst of Bartholin's gland (principal); A74.9 Chlamydial infection, unspecified
CPT/HCPCS: 56420; 87491; 87591; 99212

== ENCOUNTER → 2021-04-25 12:34 | Outpatient (BNVA) | payer MEDICAID, SELFPAY | PROVIDERS: PCP Registered Nurse; Visit Provider Obstetrics & Gynecology | DX: N75.0 Cyst of Bartholin's gland (principal); N83.299 Other ovarian cyst, unspecified side; A74.9 Chlamydial infection, unspecified | CPT/HCPCS: 99212 ==

== ENCOUNTER → 2021-06-20 15:13 | Outpatient (BNVA) | payer MEDICAID, SELFPAY | PROVIDERS: PCP Registered Nurse; Visit Provider Obstetrics & Gynecology ==

== ENCOUNTER 2021-07-23 14:49 | Outpatient (REF) | payer MEDICAID, SELFPAY ==
[2021-07-24 01:42] LABS: CT PCR NOT DETECTED (Not Detect.); NG PCR NOT DETECTED (Not Detect.)
[2021-07-24 09:11] LABS: BV Int Neg Control Negative (Negative); BV Int Pos Control Positive (Positive)
== END 2021-07-23 14:50 | disposition home or self-care (01) ==
LOC: HO.LAB 14:49
PROVIDERS: PCP Registered Nurse; Visit Provider Obstetrics & Gynecology
DX: A74.9 Chlamydial infection, unspecified (principal); N93.9 Abnormal uterine and vaginal bleeding, unspecified
CPT/HCPCS: 36415; 84443; 84702; 85027; 87480; 87491; 87510; 87591; 87660; 99212

== ENCOUNTER 2021-07-23 15:39 | Outpatient (REF) | payer MEDICAID, SELFPAY ==
[2021-07-23 16:21] LABS: Hematocrit 37.3 % (37.0-47.0); Hemoglobin 11.6 g/dl (12.0-16.0); Mean Corpuscular HGB Conc 31.1 g/dl (31.0-35.0); Mean Corpuscular Hemoglobin 24.4 pg (27.0-33.0); Mean Corpuscular Volume 78.5 fL (80.0-98.0); Mean Platelet Volume 9.3 fL (9.4-12.3); Platelet Count 287 X10*3/uL (160-400); Red Blood Count 4.75 X10*6/uL (4.20-5.50); Red Cell Distribution Width 15.7 % (11.0-16.0); White Blood Count 8.8 X10*3/uL (4.8-10.8)
[2021-07-23 17:07] LABS: HCG Quantitative < 2 mIU/mL; TSH reflex Free T4 2.26 uIU/mL (0.32-4.0)
== END 2021-07-23 15:40 | disposition home or self-care (01) ==
LOC: HO.LAB 15:39
PROVIDERS: Visit Provider Obstetrics & Gynecology
DX: N93.9 Abnormal uterine and vaginal bleeding, unspecified (principal)
CPT/HCPCS: 36415; 84443; 84702; 85027

== ENCOUNTER 2021-08-08 15:11 | Emergency (ER) | payer MEDICAID, SELFPAY ==
--- NOTE | ~2021-08-08 | XR_ITS ---
EXAMINATION: XR CHEST CLINICAL INFORMATION: Cough with chest tightness COMPARISON: 02/09/2021 TECHNIQUE: Frontal view of the chest was obtained. FINDINGS: No significant abnormality is noted involving the heart, lungs, mediastinum, bony thorax or soft tissues. XR/XR chest 1V IMPRESSION: Unremarkable examination.
[2021-08-08 16:20] VITALS: BP 124/68; PULSE 61; RESP 18; TEMP 36.8; O2SAT 100; BMI 23.4
[2021-08-08 17:09] LABS: COVID-19 Test Positive (Negative); IDNOW Serial# 9DD0AD1C
--- NOTE | 2021-08-08 17:13 | ED_ITS ---
HPI - URI/Sore Throat General Chief Complaint: Upper Respiratory Symptoms Stated Complaint: headache, chest pain, leg pain Time Seen by Provider: 08/08/21 16:50 Source: patient Mode of arrival: ambulatory History of Present Illness HPI Narrative: 21-year-old female with past medical history asthma presenting to the ED complaining of nonproductive cough, headache, generalized myalgias worse in the legs, chest tightness, mild SOB, and chills. Denies fever, ear pain, sore throat, abdominal pain, nausea/vomiting, calf pain, recent travel, known COVID- 19 exposure MD elicited complaint: cough Onset (ago): day(s) Related Data Previous Rx's Medication Instructions Recorded metronidazole 500 mg tablet 500 mg PO BID 7 Days #14 tab 07/24/21 Allergies Allergy/AdvReac Type Severity Reaction Status Date / Time Penicillins Allergy Severe ANGIOEDEMA Verified 04/19/21 15:58 [PENICILLINS] Review of Systems Verdana 4l Review of Systems: Verdana 4d Verdana 4d Constitutional: No Weight loss, No Fever, No Chills, +myalgias ENT/Mouth: No Ear Pain, No Nasal Congestion, No sore throat, No Rhinorrhea, No Swallowing Difficulty Cardiovascular: + Chest tightness, + SOB Respiratory: + Cough, No Sputum, NoNo Wheezing Gastrointestinal: No Nausea, No Vomiting, No Diarrhea, No Constipation, No Abdominal pain Genitourinary:No Dysuria, No Urinary Frequency, No Urgency, No Flank Pain Musculoskeletal: No joint pain, + Myalgias, No Joint Swelling Skin: No Skin Lesions, No rash Neuro: No Weakness, No Numbness, No Paresthesias, +headache Yes all other systems are reviewed and are negative FOR[facility]LY [facility], [facility] Past Medical History Attestation statement: The following information was validated with the patient. Medical History Asthma Complex cyst of both ovaries Complex cyst of left ovary Family History Family History Maternal Grandmother Uterine cancer Social History Social History Alcohol intake: never Advance Directives: No Advance Directives Information Provided: No Sexual orientation: Straight/Heterosexual Gender identity: Female Physical Exam Verdana 4l Vital Signs: Verdana 4d Verdana 4d Vital Signs: Verdana 4d Verdana 4Bd Last Vital Signs Verdana 4d Paint Line Operator New 4d Paint Line Operator New 4d Temp 98.2 F 08/08/21 16:20 Paint Line Operator New 4d Pulse 61 08/08/21 16:20 Paint Line Operator New 4d Resp 18 08/08/21 16:20 BP 124/68 08/08/21 16:20 Pulse Ox 100 08/08/21 16:20 BMI result Body Mass Index 23.4 Const: General: cooperative, healthy appearing, no acute distress, well developed, alert, awake and Physically active Orientation/consciousness: patient oriented x3 Limitations: no limitations HENMT: Head: Yes normal to inspection and Yes atraumatic Ears: hearing grossly normal bilaterally, external ears normal and TM's normal bilaterally General nose exam: Normal external nose present Face and sinus: Yes normal facial exam Throat: Yes posterior oropharynx normal, Yes tonsils normal, Yes uvula midline and No peritonsillar mass Eyes: General: appearance normal, both eyes and all related structures EOM: EOMs intact bilaterally Neck: Neck: Yes normal visual inspection and Yes no meningeal signs Resp: Effort & Inspection: normal respiratory effort Auscultation: clear to auscultation bilaterally, no rales, no rhonchi and no wheezes Cardio: Rate: regular rate Heart sounds: S1 normal heart sound present and S2 normal heart sound present GI: Inspection: Yes normal to inspection Palpation (GI): Soft to palpation, nontender, no guarding and not rigid Skin: Rashes: no rashes Wounds: no wounds Neuro: General: patient oriented x3, gait normal, tone normal and no meningeal signs Gait exam (Neuro): Normal gait present Extrem: General: Yes normal to inspection, Yes no pedal edema and Yes no calf tenderness Course Course Course Narrative: XR chest 1V IMPRESSION: Unremarkable examination -1714--COVID-19 positive >> results discussed with patient in powder room attendant including worrisome signs and symptoms and strict return precautions MDM - URI/Sore Throat MDM Narrative Medical decision making narrative: 21-year-old female with past medical history asthma presenting to the ED complaining of nonproductive cough, headache, generalized myalgias worse in the legs, chest tightness, mild SOB, and chills. On exam vital signs stable, NAD/nontoxic appearing, lungs CTA, no pedal edema/calf tenderness. Concern for viral syndrome/COVID-19 vs asthma exacerbation. Low concern for ACS/PE or DVT Plan: CXR, COVID-19 testing Differential Diagnosis Differential diagnosis: Likely upper respiratory infection and viral infection Medical Records Attestation: I reviewed the patient's medical records. Lab Data Attestation: I reviewed the patient's lab results. Labs: Lab Results 08/08/21 Range/Units 16:46 COVID-19 (CLARITZA) Positive A (Negative) COVID-19 Clin Com See Note Discharge Plan Discharge Clinical Impression: COVID-19 Patient Disposition: Home, Self-Care Instructions: COVID-19 (Coronavirus Disease 2019) (ED) Additional Instructions: You have COVID-19. Your x-ray was unremarkable At this time you will be okay for discharge. Please self isolate for 10-14 days. Do not expose yourself to others. You may not go to work or school. Please continue to follow cold instructions and wash your hands frequently. You may take Tylenol / Motrin as directed on the bottle for pain or fever. If you have constant or persistent shortness of breath, fever unresolved with medications, chest pain, or your unable to eat or drink please return to the ED CDC Guidelines for home isolation: - Stay away from others - WEAR A MASK if you are sick AND STAY HOME - Cover your mouth and nose with a tissue when you cough or sneeze. Dispose of tissues in a lined trash can and wash your hands immediately with soap and water for at least 20 seconds. If soap and water are not available, clean hands with alcohol-based hand computer processing scheduler that contains at least 60% alcohol. - Clean your hands often with soap and water for at least 20 seconds - Avoid touching your eyes, nose and mouth with unwashed hands - Do not share dishes, drinking glasses, cups, eating utensils, towels, or bedding with other people in your home. After using these items, wash them thoroughly with soap and water or put in the campus director. - Clean high-touch surfaces in your isolation area ( sick room and bathroom) every day; let a caregiver clean and disinfect high-touch surfaces in other areas of the home. Clean the area or item with soap and water or another detergent if it is dirty. Then, use a household disinfectant. - Limit contact with pets and animals: If you must care for a pet, wash your hands before and after interacting with them) Tienes COVID-19. Godwin radiograf?a fue normal En vickie momento estar? tania para el deangelo. A?slese alyssa 10-14 d?as. No te expongas a los dem?s. Es posible que no vaya al trabajo ni a la escuela. Contin?e siguiendo las instrucciones en fr?o y l?vese las sisi con frecuencia. Puede claudia Tylenol/Motrin niru se indica en el frasco para el dolor o la fiebre. Si tiene dificultad para respirar noah o persistente, fiebre que no se resuelve con medicamentos, dolor en el pecho o no puede comer o beber, regrese al servicio de urgencias. Pautas de los CDC para el aislamiento en el hogar: - Mant?ngase alejado de los dem?s. - USE TEMITOPE MASCARILLA si est? enfermo Y QU?DESE EN CASA - C?brase la boca y la nariz con un pa?uelo desechable al toser o estornudar. Deseche los pa?uelos en un bote de basura forrado y l?vese las sisi inmediatamente con agua y jab?n alyssa al menos 20 segundos. Si no hay agua y jab?n disponibles, l?vese las sisi con un desinfectante para sisi a base de alcohol que contenga al menos un 60 % de alcohol. - L?vese las sisi con frecuencia con agua y jab?n alyssa al menos 20 segundos. - Evite tocarse los ojos, la nariz y la boca con las sisi sin karin - No comparta platos, vasos, tazas, utensilios para comer, toallas o ropa de cama con otras personas en godwin hogar. Despu?s de usar estos art?culos, l?velos tania con agua y jab?n o col?quelos en el lavavajillas. - Limpie las superficies de alto contacto en godwin ?neal de aislamiento ( cuarto de enfermos y ba?o) todos los d?as; permita que un cuidador limpie y desinfecte las superficies de alto contacto en otras ?reas del hogar. Limpie el ?neal o art?culo con agua y jab?n u otro detergente si est? sucio. Luego, use un desinfectante dom?stico. - Limite el contacto con mascotas y animales: si debe cuidar temitope mascota, l?vese las sisi antes y despu?s de interactuar con ellos) Prescriptions: No Action metronidazole 500 mg tablet 500 mg PO BID 7 Days Qty: 14 0RF Rx Instructions: Take with food, Avoid alcohol and vinegar products Referrals: Physician,Unknown J [Primary Care Provider] - 1 week (as needed) Stand Alone Forms: Work/School Release Print Language: Greek
== END 2021-08-08 17:45 | disposition home or self-care (01) ==
PROVIDERS: Emergency Provider Internal Medicine
DX: U07.1 COVID-19 (principal)
CPT/HCPCS: 71045; 87635; 99283

== ENCOUNTER 2021-08-29 14:44 | Outpatient (REF) | payer MEDICAID, SELFPAY ==
--- NOTE | ~2021-08-29 | US_ITS ---
EXAMINATION: US PELVIS CLINICAL INFORMATION: Abnormal uterine and vaginal bleeding. COMPARISON: None TECHNIQUE: Ultrasound of the pelvis is performed using both transabdominal transducers along with Doppler. Transvaginal imaging is not performed as patient refused. FINDINGS: Uterus: The uterus is anteverted, anteflexed and measures 7.2 cm in length, 3.4 cm in AP and 4.8 cm. The double wall endometrial thickness is 0.9 mm. The uterus is smooth in contour and has normal myometrial echogenicity. No visible fibroid. Adnexa: Both ovaries are visualized. There is normal color flow to the adnexa. There is no ovarian torsion. There is no pelvic ascites or fluid collection. Right ovary measures 4.2 x 3.3 x 3.9 cm and volume 28.0 mL. There are two anechoic cysts visualized. A 3.4 x 3.5 x 3.4 cm with echogenic debris. A second smaller cyst measures 1.7 x 1.5 x 2.2 cm. Left ovary measures 6.4 x 4.5 x 5.1 cm and volume 77.9 mL. There are two anechoic cysts seen. A slightly irregular shaped alan with debris cyst measures 4.8 x 4.3 x 4.7 cm. A solid and cystic area measuring 1.6 x 1.8 x 1.6 cm. There is no free fluid in the cul-de-sac. US/US pelvic complete IMPRESSION: 1. Complex bilateral ovarian cysts with echogenic debris. A second left ovarian cyst appears cystic and solid. Recommend follow-up after 2 or 3 cycles. 2. Unremarkable uterus.
== END 2021-08-29 14:45 | disposition home or self-care (01) ==
LOC: HO.US 14:44
PROVIDERS: Visit Provider Obstetrics & Gynecology
DX: N93.9 Abnormal uterine and vaginal bleeding, unspecified (principal)
CPT/HCPCS: 76856

== ENCOUNTER 2021-09-03 13:38 | Emergency (ER) | payer MEDICAID, SELFPAY ==
[2021-09-03 14:45] VITALS: BP 124/69; PULSE 80; RESP 18; TEMP 36.8; O2SAT 100; BMI 24.4
[2021-09-03 15:03] LABS: MANUAL DIFF FLAG NO
[2021-09-03 15:04] LABS: Appearance Urine CLEAR; Color Urine STRAW; Glucose Urine UA NEG (NEG); Leukocyte Esterase Urine NEG (NEG); Nitrite Urine NEG (NEG); PH 5.5 (5.0-8.0); Specific Gravity - Urine <= 1.005 (1.005-1.025); UACC Culture Trigger NO; Urine Blood 2+ (NEG); Urine Ketones NEG (NEG); Urine Protein NEG (NEG-TRACE)
[2021-09-03 15:10] LABS: UPreg QC Valid YES; Urine Pregnancy NEGATIVE (NEGATIVE)
[2021-09-03 15:13] LABS: Basophils Percent Auto 0.4 % (0-2); Eosinophils Absolute Auto 0.2 X10*3/uL (0.0-0.4); Eosinophils Percent Auto 2.2 % (0-4); Hematocrit 37.4 % (37.0-47.0); Hemoglobin 11.9 g/dl (12.0-16.0); Imm Gran Abs Auto 0.02 X10*3/uL (0.00-0.03); Imm Gran Pct Auto 0.3 % (0.0-0.4); Lymphocytes Absolute Auto 2.8 X10*3/uL (1.2-4.9); Lymphocytes Percent Auto 40.9 % (20-40); Mean Corpuscular HGB Conc 31.8 g/dl (31.0-35.0); Mean Corpuscular Volume 78.6 fL (80.0-98.0); Mean Platelet Volume 9.5 fL (9.4-12.3); Monocytes Absolute Auto 0.4 X10*3/uL (0.1-1.2); Monocytes Percent Auto 5.5 % (2-11); Neutrophils Absolute Auto 3.4 x10*3/uL (2.0-8.3); Neutrophils Percent Auto 50.7 % (45-73); Platelet Count 253 X10*3/uL (160-400); Red Blood Count 4.76 X10*6/uL (4.20-5.50); Red Cell Distribution Width 16.8 % (11.0-16.0); White Blood Count 6.7 X10*3/uL (4.8-10.8)
[2021-09-03 15:19] LABS: Alanine Aminotransferase 8 U/L (0-31); Albumin Level 4.4 g/dL (3.5-5.0); Alkaline Phosphatase 57 U/L (39-117); Anion Gap 10 (12-20); Aspartate Amino Transferase 13 U/L (5-31); Bilirubin Total 0.2 mg/dL (0.0-1.0); Blood Urea Nitrogen 11 mg/dL (9-16); Calcium 9.5 mg/dL (8.4-10.2); Carbon Dioxide 29 mmol/L (22-29); Chloride 102 mmol/L (96-108); Creatinine Clr Calc Pharmacy 104.2; Estimated Glomerular Filt Rate > 60; Glucose Random 88 mg/dL (60-115); Potassium 4.4 mmol/L (3.3-5.1); Sodium 137 mmol/L (135-145); Total Protein 7.6 g/dL (6.5-8.0)
[2021-09-03 15:52] LABS: Bacteria Urine TRACE /LPF; Squamous Epithelial Cell Urine 1+ /LPF; WBC Urine 0-2 /HPF (0-4)
--- NOTE | 2021-09-03 20:36 | ED_ITS ---
HPI - Headache General Chief Complaint: Abdominal Pain Stated Complaint: headache vomiting Time Seen by Provider: 09/03/21 20:36 Source: patient Mode of arrival: ambulatory Limitations: no limitations History of Present Illness HPI Narrative: Patient history of headaches often with likely sensitivity and nausea com plaining of headache for last 2 - 3 days l sided also complaining of having menses lasting only for 2 days with blood clots patient does have a history of bilateral ovarian cyst had a sonogram done on 08/31 showed about 4 cm cyst on both sides patient complaining of dull pain on left side of lower abdomen for last few days no fever no chills no urinary complaint Related Data Previous Rx's Medication Instructions Recorded metronidazole 500 mg tablet 500 mg PO BID 7 Days #14 tab 07/24/21 [id number] 1 cap PO Q6H PRN #20 cap 09/03/21 50 mg-300 mg-40 mg capsule (Fioricet) ibuprofen 600 mg tablet 600 mg PO Q6H PRN #20 tab 09/03/21 Allergies Allergy/AdvReac Type Severity Reaction Status Date / Time Penicillins [PENICILLINS] Allergy Severe ANGIOEDEMA Verified 09/03/21 14:44 Review of Systems Review of Systems: Yes all other systems are reviewed and are negative [facility] Past Medical History Medical History Asthma Complex cyst of both ovaries Complex cyst of left ovary COVID-19 Endometriosis Family History Family History Maternal Grandmother Uterine cancer Social History Social History Alcohol intake: never Advance Directives: No Advance Directives Information Provided: No Sexual orientation: Straight/Heterosexual Gender identity: Female Physical Exam Vital Signs: Vital Signs: Last Vital Signs Temp 98.6 F 09/03/21 20:40 Pulse 79 09/03/21 20:40 Resp 14 09/03/21 20:40 BP 118/84 09/03/21 20:40 Pulse Ox 100 09/03/21 20:40 BMI result Body Mass Index 24.4 Appearance: Alert. Oriented X3. No acute distress. ENT: Pharynx normal. Oral Mucosa moist Neck: Normal inspection. Neck supple. CVS: Normal heart rate and rhythm. Pulses normal. Respiratory: No respiratory distress. Equal air entry bilateral, no wheezing/rales/rhonchi Abdomen: Soft, deep tenderness left lower quadrant, Bowel sounds are present, no mass palpable, no CVA tenderness Skin: Skin warm and dry. Normal skin color. Normal skin turgor. Neuro: Oriented X 3. MDM - Headache Lab Data Result diagrams: 09/03/21 14:58 09/03/21 14:58 Labs: Lab Results 09/03/21 09/03/21 09/03/21 Range/Units 14:56 14:56 14:58 WBC 6.7 (4.8-10.8) X10*3/uL RBC 4.76 (4.20-5.50) X10*6/uL Hgb 11.9 L (12.0-16.0) g/dl Hct 37.4 (37.0-47.0) % MCV 78.6 L (80.0-98.0) fL MCH 25.0 L (27.0-33.0) pg MCHC 31.8 (31.0-35.0) g/dl RDW 16.8 H (11.0-16.0) % Plt Count 253 (160-400) X10*3/uL MPV 9.5 (9.4-12.3) fL Immature Gran % (Auto) 0.3 (0.0-0.4) % Neut % (Auto) 50.7 (45-73) % Lymph % (Auto) 40.9 H (20-40) % [place] % (Auto) 5.5 (2-11) % Eos % (Auto) 2.2 (0-4) % Baso % (Auto) 0.4 (0-2) % Lymph # (Auto) 2.8 (1.2-4.9) X10*3/uL [place] # (Auto) 0.4 (0.1-1.2) X10*3/uL Eos # (Auto) 0.2 (0.0-0.4) X10*3/uL Baso # (Auto) 0.0 (0.0-0.2) X10*3/uL Abs Immat Gran (auto) 0.02 (0.00-0.03) X10*3/uL Absolute Neuts (auto) 3.4 (2.0-8.3) x10*3/uL Absolute Nucleated RBC 0.000 (0.0-0.012) X10*3/uL Nucleated RBC % (auto) 0.0 (0.0-0.2) /100WBC Sodium (135-145) mmol/L Potassium (3.3-5.1) mmol/L Chloride (96-108) mmol/L Carbon Dioxide (22-29) mmol/L Anion Gap (12-20) BUN (9-16) mg/dL Creatinine (0.5-1.4) mg/dL Estim Creat Clear Calc Estimated GFR Random Glucose (60-115) mg/dL Calcium (8.4-10.2) mg/dL Total Bilirubin (0.0-1.0) mg/dL AST (5-31) U/L ALT (0-31) U/L Alkaline Phosphatase (39-117) U/L Total Protein (6.5-8.0) g/dL Albumin (3.5-5.0) g/dL Urine Color STRAW Urine Appearance CLEAR Urine pH 5.5 (5.0-8.0) Ur Specific [place] <= 1.005 (1.005-1.025) Urine Protein NEG (NEG-TRACE) MG/DL Urine Glucose (UA) NEG (NEG) MG/DL Urine Ketones NEG (NEG) MG/DL Urine Blood 2+ H (NEG) Urine Nitrite NEG (NEG) Ur Leukocyte Esterase NEG (NEG) Urine RBC 10-14 H (0) /HPF Urine WBC 0-2 (0-4) /HPF Ur Squamous Epith Cells 1+ /LPF Urine Bacteria TRACE /LPF Urine Test NEGATIVE (NEGATIVE) 09/03/21 Range/Units 14:58 WBC (4.8-10.8) X10*3/uL RBC (4.20-5.50) X10*6/uL Hgb (12.0-16.0) g/dl Hct (37.0-47.0) % MCV (80.0-98.0) fL MCH (27.0-33.0) pg MCHC (31.0-35.0) g/dl RDW (11.0-16.0) % Plt Count (160-400) X10*3/uL MPV (9.4-12.3) fL Immature Gran % (Auto) (0.0-0.4) % Neut % (Auto) (45-73) % Lymph % (Auto) (20-40) % [place] % (Auto) (2-11) % Eos % (Auto) (0-4) % Baso % (Auto) (0-2) % Lymph # (Auto) (1.2-4.9) X10*3/uL [place] # (Auto) (0.1-1.2) X10*3/uL Eos # (Auto) (0.0-0.4) X10*3/uL Baso # (Auto) (0.0-0.2) X10*3/uL Abs Immat Gran (auto) (0.00-0.03) X10*3/uL Absolute Neuts (auto) (2.0-8.3) x10*3/uL Absolute Nucleated RBC (0.0-0.012) X10*3/uL Nucleated RBC % (auto) (0.0-0.2) /100WBC Sodium 137 (135-145) mmol/L Potassium 4.4 D (3.3-5.1) mmol/L Chloride 102 (96-108) mmol/L Carbon Dioxide 29 (22-29) mmol/L Anion Gap 10 L (12-20) BUN 11 (9-16) mg/dL Creatinine 0.73 (0.5-1.4) mg/dL Estim Creat Clear Calc 104.2 Estimated GFR > 60 Random Glucose 88 (60-115) mg/dL Calcium 9.5 D (8.4-10.2) mg/dL Total Bilirubin 0.2 (0.0-1.0) mg/dL AST 13 (5-31) U/L ALT 8 (0-31) U/L Alkaline Phosphatase 57 (39-117) U/L Total Protein 7.6 (6.5-8.0) g/dL Albumin 4.4 (3.5-5.0) g/dL Urine Color Urine Appearance Urine pH (5.0-8.0) Ur Specific [place] (1.005-1.025) Urine Protein (NEG-TRACE) MG/DL Urine Glucose (UA) (NEG) MG/DL Urine Ketones (NEG) MG/DL Urine Blood (NEG) Urine Nitrite (NEG) Ur Leukocyte Esterase (NEG) Urine RBC (0) /HPF Urine WBC (0-4) /HPF Ur Squamous Epith Cells /LPF Urine Bacteria /LPF Urine Test (NEGATIVE) Discharge Plan Discharge Clinical Impression: Complex ovarian cyst, Headache, migraine Patient Disposition: Home, Self-Care Instructions: Ovarian Cyst (ED), Migraine Headache (ED) Additional Instructions: take ibuprofen for ovarian pain Fioricet for severe headache Follow-up with campground cleaning 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
[2021-09-03 20:40] VITALS: BP 118/84; PULSE 79; RESP 14; TEMP 37; O2SAT 100
[2021-09-03] MEDS: Butalb/Acetamin/Caff 50/325/40 TABLET 1 TAB PO (20:58)
[2021-09-03] MEDS: Ondansetron ODT 4 MG TAB.RAPDIS TRANSLINGU (20:58)
== END 2021-09-03 21:14 | disposition home or self-care (01) ==
PROVIDERS: Emergency Provider Internal Medicine
DX: N83.201 Unspecified ovarian cyst, right side (principal); N83.202 Unspecified ovarian cyst, left side; G43.909 Migraine, unspecified, not intractable, without status migrainosus; Z79.899 Other long term (current) drug therapy
CPT/HCPCS: 36415; 80053; 81001; 81025; 85025; 99283

== ENCOUNTER → 2021-09-06 16:08 | Outpatient (BNVA) | payer MEDICAID, SELFPAY | PROVIDERS: PCP Registered Nurse; Visit Provider Obstetrics & Gynecology ==

== ENCOUNTER 2021-09-17 14:02 | Outpatient (REF) | payer MEDICAID, SELFPAY ==
[2021-09-17 14:37] LABS: Appearance Urine HAZY; Color Urine YELLOW; Glucose Urine UA NEG (NEG); Leukocyte Esterase Urine 1+ (NEG); Nitrite Urine POS (NEG); UACC Culture Trigger YES; Urine Blood NEG (NEG); Urine Ketones NEG (NEG); Urine Protein NEG (NEG-TRACE)
[2021-09-17 14:47] LABS: Bacteria Urine 3+ /LPF; Mucus Urine 1+ /LPF; RBC Urine 0 /HPF (0); Squamous Epithelial Cell Urine 2+ /LPF
[2021-09-18 17:16] LABS: CA-125 31 U/mL (<35)
== END 2021-09-17 14:03 | disposition home or self-care (01) ==
LOC: HO.LAB 14:02
PROVIDERS: Visit Provider Obstetrics & Gynecology
DX: N83.299 Other ovarian cyst, unspecified side (principal); R10.2 Pelvic and perineal pain
CPT/HCPCS: 36415; 81001; 86304; 87086; 87088; 87186

== ENCOUNTER 2021-09-20 14:55 | Outpatient (REF) | payer MEDICAID, SELFPAY ==
--- NOTE | ~2021-09-20 | MR_ITS ---
EXAMINATION: MR PELVIS WITHOUT AND WITH CONTRAST CLINICAL INFORMATION: Ovarian cyst. COMPARISON: Previous pelvic ultrasound most recent August 2021. TECHNIQUE: Sagittal, axial and coronal sequences through the pelvis with and without contrast. The patient received 6 mL Gadavist intravenous gadolinium. FINDINGS: The uterus is anteverted and measures 6.7 x 3.7 x 4.6 cm in sagittal, AP and transverse dimension. No focal uterine lesion is seen. Endometrial thickness is normal measuring 0.6 cm. The junctional zone is normal. The cervix is normal. There is a right 1.7 cm labial simple-appearing cyst. The right ovary is enlarged and measures 5.3 x 3.6 x 4 cm in dimension. There is a complex cyst in the right ovary. This is high signal on T1-weighted sequences, intermediate signal on T2-weighted sequences and demonstrates no evidence of enhancement. This has a dependent low signal nonenhancing component. The left ovary is enlarged and measures 6.5 x 3.7 x 4 cm in dimension. There are 2 left ovarian complex cysts. There is a 4 cm cyst that is high signal on T1-weighted sequences, low signal on T2-weighted sequences and demonstrates no evidence of enhancement. There is a second smaller 3 cm heterogeneous but predominately high signal on T1-weighted sequences, heterogeneous but predominately high signal on T2-weighted sequences with dependent fluid-fluid level and demonstrates no evidence of enhancement. Findings are similar to recent pelvic ultrasound August 2021. Endometriomas and hemorrhagic cysts should be considered. There is a small amount of fluid in the pelvis. The bladder is unremarkable. Visualized bowel is unremarkable. No adenopathy is seen. Bony structures are normal. MR/MR pelvis wo/w con IMPRESSION: Enlarged ovaries and bilateral complex cysts. Endometriomas and hemorrhagic cysts should be considered.
--- NOTE | 2021-09-20 17:32 | PC.NURSE ---
This contract technical writer, as Clinical Nursing reduction plant supervisor, was asked to evaluate patient as she complained of trouble swallowing after IV injection of contrast for MRI. Patient was in no distress, breathing fine, mildly anxious. Mouth moist, no cough or pooling of oral secretions. buffet manager present. Patient was given a small cup of water to try to swallow a sip. She was unable, stating it was too uncomfortable. She said she just wanted to finish her exam and go home. She was encouraged to go to the ER once her MRI was complete to be checked out for reaction. Patient had no hives, did not c/o any itch. Her last 5min of MRI scan was completed. This contract technical writer stayed in the MRI suite until done. Patient was able to ambulate to W/C. Once out in waiting area, she stated that she felt better, was able to swallow small sips of water safely. She was encouraged to call 911, once home, if any strange feeling returned. Patient changed her clothes and was able to ambulate for D/C.
== END 2021-09-20 14:56 | disposition home or self-care (01) ==
LOC: HO.MRI 14:55
PROVIDERS: Visit Provider Obstetrics & Gynecology
DX: N83.299 Other ovarian cyst, unspecified side (principal)
CPT/HCPCS: 72197; A9585

== ENCOUNTER → 2021-09-28 11:35 | Outpatient (BNVA) | payer MEDICAID, SELFPAY | PROVIDERS: PCP Registered Nurse; Visit Provider Obstetrics & Gynecology | DX: Z13.89 Encounter for screening for other disorder (principal) ==

== ENCOUNTER 2021-10-24 15:04 | Emergency (ER) | payer MEDICAID, SELFPAY ==
--- NOTE | ~2021-10-24 | XR_ITS ---
EXAMINATION: XR CHEST CLINICAL INFORMATION: Chest pain COMPARISON: Chest 08/08/2021 TECHNIQUE: Frontal view of the chest was obtained. FINDINGS: No significant abnormality is noted involving the heart, lungs, mediastinum, bony thorax or soft tissues. XR/XR chest 1V IMPRESSION: Unremarkable chest examination.
--- NOTE | 2021-10-24 15:13 | ECG_ITS ---
Test Reason : CHEST PAIN Blood Pressure : / mmHG Vent. Rate : 114 BPM Atrial Rate : 114 BPM P-R Int : 164 ms QRS Dur : 074 ms QT Int : 308 ms P-R-T Axes : 075 059 051 degrees QTc Int : 424 ms Sinus tachycardia Otherwise normal ECG When compared with ECG of 29-DEC-2019 18:21, No significant change was found Referred By: Generic ED Physician Electronically Signed By:Jhony Rao
[2021-10-24 16:28] LABS: MANUAL DIFF FLAG NO
[2021-10-24 16:31] LABS: Basophils Percent Auto 0.2 % (0-2); Eosinophils Percent Auto 0.7 % (0-4); Hematocrit 37.4 % (37.0-47.0); Imm Gran Abs Auto 0.01 X10*3/uL (0.00-0.03); Imm Gran Pct Auto 0.2 % (0.0-0.4); Lymphocytes Absolute Auto 1.3 X10*3/uL (1.2-4.9); Lymphocytes Percent Auto 30.9 % (20-40); Mean Corpuscular HGB Conc 32.1 g/dl (31.0-35.0); Mean Corpuscular Hemoglobin 24.9 pg (27.0-33.0); Mean Corpuscular Volume 77.8 fL (80.0-98.0); Mean Platelet Volume 9.8 fL (9.4-12.3); Monocytes Absolute Auto 0.7 X10*3/uL (0.1-1.2); Monocytes Percent Auto 15.7 % (2-11); Neutrophils Absolute Auto 2.3 x10*3/uL (2.0-8.3); Neutrophils Percent Auto 52.3 % (45-73); Platelet Count 232 X10*3/uL (160-400); Red Blood Count 4.81 X10*6/uL (4.20-5.50); Red Cell Distribution Width 16.5 % (11.0-16.0); White Blood Count 4.3 X10*3/uL (4.8-10.8)
[2021-10-24 16:33] LABS: UPreg QC Valid YES; Urine Pregnancy NEGATIVE (NEGATIVE)
[2021-10-24] MEDS: Acetaminophen 325 MG TABLET 650 MG PO (16:44)
[2021-10-24 16:47] VITALS: BP 118/76; PULSE 105; RESP 19; TEMP 37.1; O2SAT 98; BMI 22.1
[2021-10-24 16:50] LABS: Anion Gap 12 (12-20); Blood Urea Nitrogen 9 mg/dL (9-16); Calcium 9.1 mg/dL (8.4-10.2); Carbon Dioxide 27 mmol/L (22-29); Chloride 103 mmol/L (96-108); Creatinine Clr Calc Pharmacy 99.9; Estimated Glomerular Filt Rate > 60; Glucose Random 84 mg/dL (60-115); Potassium 4.1 mmol/L (3.3-5.1); Sodium 138 mmol/L (135-145)
[2021-10-24 16:58] LABS: Troponin-I High Sensitivity < 3.5 ng/L (<3.5-17.0)
[2021-10-24 17:09] LABS: COVID-19 Test Negative (Negative); IDNOW Serial# 08D9AD1C; IDNOW Serial# 55D5AD1C; Influenza A Positive (Negative); Influenza B2 Negative (Negative)
== END 2021-10-24 23:22 | disposition left against medical advice (07) ==
PROVIDERS: Emergency Provider Emergency Medicine
DX: R07.89 Other chest pain (principal); R51.9 Headache, unspecified; R68.83 Chills (without fever); Z20.822 Contact with and (suspected) exposure to COVID-19; Z79.899 Other long term (current) drug therapy
CPT/HCPCS: 36415; 71045; 80048; 81025; 84484; 85025; 87502; 87635; 93005; 99283

== ENCOUNTER → 2021-12-03 15:06 | Outpatient (BNVA) | payer MEDICAID, SELFPAY | PROVIDERS: Visit Provider Obstetrics & Gynecology | DX: N80.9 Endometriosis, unspecified (principal) | CPT/HCPCS: 99211 ==

== ENCOUNTER 2022-01-03 12:08 | Emergency (ER) | payer MEDICAID, SELFPAY ==
[2022-01-03 13:16] VITALS: BP 125/63; PULSE 110; RESP 16; TEMP 37.7; O2SAT 99; BMI 26.0
[2022-01-03] MEDS: LORazepam 1 MG TABLET PO (14:19)
[2022-01-03] MEDS: Lidocaine 4 % Cream KIT 1 APPL TOPICAL (14:19)
[2022-01-03] MEDS: Lidocaine HCl 1 % MPF 5 ML VIAL SUBCUT ×2 (14:42→14:43)
--- NOTE | 2022-01-03 15:36 | ED.SKABFB ---
HPI - Skin/Abscess/Foreign Bdy General Chief complaint: Skin/Abscess/Foreign Body Stated complaint: infected gland Time Seen by Provider: 01/03/22 13:48 Source: patient Mode of arrival: ambulatory Limitations: language barrier History of Present Illness HPI narrative: 21-year-old Hungarian-speaking female presents for swollen Bartholin gland in the right vaginal region for the past 2 weeks. Patient states she has felt that she has a fever at home, it was subjective and she did not take her temperature. Last antipyretic was last night. Patient states she vomited yesterday and feels nauseous now. She has no STD concerns, no vaginal discharge. Patient states she has had a Bartholin gland abscess 11 times, and was going to have the Bartholin gland removed with her OBGYN, Dr Andres, but has not had a chance and now it is infected again Related Data Previous Rx's Medication Instructions Recorded ibuprofen 600 mg tablet 600 mg PO Q6H PRN pain #20 tabs 09/03/21 sulfamethoxazole 800 1 tab PO BID 3 days #6 tabs 09/19/21 mg-trimethoprim 160 mg tablet (Bactrim DS) doxycycline hyclate 100 mg tablet 100 mg PO BID 10 days #20 tabs 01/03/22 Allergies Allergy/AdvReac Type Severity Reaction Status Date / Time Penicillins [PENICILLINS] Allergy Severe ANGIOEDEMA Verified 10/24/21 16:50 Review of Systems Constitutional: Constitutional: Denies body ache(s), Denies chills, Denies fatigue, Reports fever(s), Denies malaise and Denies weakness Eyes: Eyes: Denies diplopia Cardiovascular: Cardiovascular: Denies chest pain, Denies syncope, Denies leg edema, Denies lightheadedness, Denies Loss of Consciousness, Denies palpitations and Denies dyspnea Respiratory: Respiratory: Denies chest congestion, Denies cough and Denies dyspnea Gastrointestinal: Gastrointestinal: Denies abdominal pain, Denies hematochezia, Denies constipation, Denies diarrhea, Reports nausea and Reports vomiting Genitourinary: Genitourinary: Denies pelvic pain, Denies urinary urgency and Denies vaginal discharge Musculoskeletal: Musculoskeletal: Reports no additional musculoskeletal complaints Integumentary/Breasts: Comments: Bartholin Gland abscess right side Neurologic: Denies confusion, Denies syncope and Denies weakness Psychiatric: Psychiatric: Denies anxiety, Denies confusion and Denies depression Endocrine: Endocrine: Denies fatigue and Denies palpitations PMFSH Past Medical History Medical History Asthma Complex cyst of both ovaries Complex cyst of left ovary COVID-19 Endometriosis Family History Family History Maternal Grandmother Uterine cancer Social History Social History Alcohol intake: never Advance Directives: No Advance Directives Information Provided: No Sexual orientation: Straight/Heterosexual Gender identity: Female Physical Exam Vital Signs: Vital Signs: Last Vital Signs Temp 99.8 F 01/03/22 13:16 Pulse 110 H 01/03/22 13:16 Resp 16 01/03/22 13:16 BP 125/63 01/03/22 13:16 Pulse Ox 99 01/03/22 13:16 O2 Del Method 01/03/22 13:16 BMI result Body Mass Index 26.0 Const: General: No confusion Nutritional Appearance: well nourished Orientation/consciousness: No confusion Limitations: no limitations Eyes: Conjunctivae: conjunctivae normal Pupils: Equal, round and reactive pupils present EOM: EOMs intact bilaterally Neck: Neck: Yes full ROM, Yes no lymphadenopathy and Yes supple Resp: Effort & Inspection: normal respiratory effort and able to speak in complete sentences Auscultation: clear to auscultation bilaterally, no crackles, no rales, no rhonchi and no wheezes Cardio: Rate: regular rate Rhythm: regular rhythm Heart sounds: S1 normal heart sound present and S2 normal heart sound present GI: Inspection: Yes normal to inspection Palpation (GI): Soft to palpation, nontender, no guarding and not rigid Percussion: Yes normal to percussion Auscultation: normal bowel sounds : Other: Right-sided Bartholin glands External Female Exam: externally tender, external swelling and lesion Female genitals images: 1. Fluctuant, tender, erythematous bartholin gland Skin: Other: bartholin gland right side Neuro: General: No confusion Cranial nerves: Yes Equal, round and reactive pupils present Extrem: General: Yes normal to inspection and Yes full ROM Psych: Appearance: grossly normal Affect: normal affect Attitude: cooperative Thought process: Normal thought process present Course Course Course Narrative: Year old female with history of multiple bartholin gland abscesses presents for same. Patient has had swollen painful area on her right inner labia for the last 2 weeks. Did incision and drainage, got wound culture, placed word catheter, put patient on doxycycline, follow-up with Dr. Andres Counseled the patient had worsening pain, fevers, she should return to be seen. wound culture word catheter Procedures Abscess I/D Site: bartholin's gland Side (if applicable): right Local Anesthetic: lidocaine 1% Amount of anesthesia used (mL): 8 Technique: incised with blade Amount of fluid expressed (mL): 60 Sent for culture/gram staining?: Yes Irrigation: No Packing used?: Word catheter Discharge Plan Discharge Clinical Impression: Abscess of Bartholin's gland Patient Disposition: Home, Self-Care Instructions: Bartholin Cyst (ED), Incision and Drainage (ED) Additional Instructions: Please call Dr. Andres use office either this afternoon or tomorrow morning at the following number [phone] I have referred you to him, his office should also be calling you. Please take doxycycline as prescribed Please leave the catheter in, and use Sitz baths 3 to 4 times a day Please return to emergency room if you have fevers, worsening pain Llame a la oficina de uso del Dr. Andres esta tarde o ma?carlita por la ma?carlita al siguiente n?kin [phone] Lo he referido a ?l, garcia oficina tambi?n deber?a estar llam?ndolo. [place] la doxiciclina seg?n lo prescrito. Deje el cat?ter puesto y use ba?os de asiento de 3 a 4 veces al d?a. Regrese a la jack de emergencias si tiene fiebre, dolor que empeora Prescriptions: New doxycycline hyclate 100 mg tablet 100 mg PO BID 10 Days Qty: 20 0RF No Action sulfamethoxazole-trimethoprim [Bactrim DS] 800-160 mg tablet 1 tab PO BID 3 Days Qty: 6 0RF ibuprofen 600 mg tablet 600 mg PO Q6H PRN (Reason: pain) Qty: 20 0RF Referrals: Girish Andres MD [Physician] - Interventions: ED Discharge Assessment Last Done: 01/03/22 15:52 Discharge Date/Time: 01/03/22 15:54 Print Language: Hungarian
== END 2022-01-03 15:54 | disposition home or self-care (01) ==
PROVIDERS: Emergency Provider Student in an Organized Health Care Education/Training Program
DX: N75.0 Cyst of Bartholin's gland (principal); J45.909 Unspecified asthma, uncomplicated
CPT/HCPCS: 56420; 87071; 87205; 99283; 99284

== ENCOUNTER 2022-01-17 15:15 | Outpatient (REF) | payer MEDICAID, SELFPAY ==
[2022-01-17 19:22] LABS: CT PCR NOT DETECTED (Not Detect.); NG PCR NOT DETECTED (Not Detect.)
[2022-01-18 07:21] LABS: HBsAGNum1 0.19 S/CO (0.00-0.99); HIV AB/AG Nonreactive (Nonreactive); HIV Num 1 0.11 S/CO (0.00-0.99); Hepatitis B Surface Antigen Negative (Negative); ~HepC Num1 0.14 S/CO (0.00-0.79); ~Hepatitis C Antibody Nonreactive (Nonreactive)
[2022-01-18 07:40] LABS: Syphilis Screen Nonreactive (Nonreactive)
[2022-01-18 09:51] LABS: BV Int Neg Control Negative (Negative); BV Int Pos Control Positive (Positive)
== END 2022-01-17 15:16 | disposition home or self-care (01) ==
LOC: HO.LAB 15:15
PROVIDERS: PCP Nurse Practitioner Family; Visit Provider Obstetrics & Gynecology
DX: Z01.419 Encounter for gynecological examination (general) (routine) without abnormal findings (principal); Z11.3 Encounter for screening for infections with a predominantly sexual mode of transmission; Z11.8 Encounter for screening for other infectious and parasitic diseases; Z11.4 Encounter for screening for human immunodeficiency virus [HIV]
CPT/HCPCS: 36415; 86780; 86803; 87340; 87389; 87480; 87491; 87510; 87591; 87660; 88142

== ENCOUNTER 2022-02-17 14:11 | Emergency (ER) | payer MEDICAID, SELFPAY ==
[2022-02-17 15:10] VITALS: BP 110/57; PULSE 92; RESP 18; TEMP 36.6; O2SAT 100; BMI 26.4
== END 2022-02-17 16:29 | disposition left against medical advice (07) ==
PROVIDERS: Emergency Provider Emergency Medicine; PCP Nurse Practitioner Family
DX: N75.0 Cyst of Bartholin's gland (principal)
CPT/HCPCS: 99281

== ENCOUNTER → 2022-02-21 14:25 | Outpatient (BNVA) | payer MEDICAID, SELFPAY | PROVIDERS: PCP Nurse Practitioner Family; Visit Provider Obstetrics & Gynecology | DX: N75.0 Cyst of Bartholin's gland (principal) | CPT/HCPCS: 99212 ==

== ENCOUNTER 2022-05-20 12:06 | Emergency (ER) | payer MEDICAID, SELFPAY ==
--- NOTE | ~2022-05-20 | CT_ITS ---
EXAMINATION: CT HEAD WITHOUT CONTRAST CLINICAL INFORMATION: Headache. COMPARISON: None. TECHNIQUE: Contiguous axial imaging was performed from the skull base to vertex without intravenous administration of contrast. Coronal and sagittal reformatted images are performed at the CT scanner. [This CT examination was performed using dose optimization techniques as appropriate, variously including the following: *Automated exposure control *Adjustment of mA and/or kV according to patient size (this includes techniques or standardized protocols for targeted exams where dose is matched to indication/reason for exam; i.e. extremities or head) *Use of iterative reconstruction technique] DLP: 707 mGy-cm. FINDINGS: There is no evidence of acute intracranial hemorrhage or territorial infarction. No abnormal mass-effect or midline shift is seen. Batista to white matter differentiation is well preserved. No extra-axial fluid collections are identified. The ventricles are normal in size. There is no abnormal attenuation within the brain parenchyma. There is no osseous abnormality. The mastoid air cells and visualized portions of the paranasal sinuses are well-aerated. CT/CT head/brain wo IV con IMPRESSION: No acute intracranial pathology.
[2022-05-20 12:42] VITALS: BP 138/89; PULSE 100; RESP 14; TEMP 36.3; O2SAT 97; BMI 26.4
--- NOTE | 2022-05-20 12:43 | ED_ITS ---
HPI - Headache General Chief Complaint: General Medical <eT Menon MD - Last Filed: 05/20/22 14:18> Stated Complaint: Headache Vomiting Pain <Te Menon MD - Last Filed: 05/20/22 14:18> Time Seen by Provider: 05/20/22 20:08 <Te Menon MD - Last Filed: 05/20/22 14:18> Source: patient <ADRIANNE Mathis - Last Filed: 05/20/22 22:15> Mode of arrival: ambulatory <ADRIANNE Mathis - Last Filed: 05/20/22 22:15> Limitations: language barrier (Somali-speaking) <ADRIANNE Mathis - Last Filed: 05/20/22 22:15> History of Present Illness HPI Narrative: 19-year-old female with a past medical history of ovarian cysts, endometriosis, low-grade squamous intraepithelial dysplasia, COVID-19 who is Somali-speaking reports that she had a history of a stroke 2-3 years ago was seen here although was sent home presenting to the ED with complaints of throbbing pulsating headache to the left side of her head that started on Friday. She reports that on Friday she initially felt like liquid was draining down inside the back of her skull and a few minutes after she ?passed out while laying in the bed she reports she woke up shortly after and her boyf riend and mother lost told her that she passed out. She was not told that she was having any seizure-like activity. Although when she did wake up she felt very tired. Since then she has been having general fatigue and weakness. She reports that she felt like the left side of her eye was droopy or partially opened she could not completely open it. The general weakness and fatigue along with the left posterior headache has persisted since Friday. Although the left eye droopiness sensation has resolved. She reports associated nasal congestion/rhinorrhea sinus pressure pain, sore throat and some coughing. She reports she did have some vomiting. She reports she felt like she had COVID. She denies any fevers, dizziness at this time, changes in vision, droopiness of the face at this time, ear ringing, recent falls or trauma, nausea or vomiting at this time, chest pain or shortness of breath at this time, dyspnea on exertion, orthopnea, palpitations, paresthesias, abdominal pain, back pain, flank pain, dysuria, hematuria, abnormal vaginal discharge, lower extremity edema or calf tenderness, black or bloody stools, recent travel or sick contacts, any estrogen usage, hypercoagulation disorder that she is aware of, recent surgery immobilization or any other symptoms complaints or concerns at this time. <ADRIANNE Mathis - Last Filed: 05/20/22 22:15> MD elicited complaint: headache <ADRIANNE Mathis - Last Filed: 05/20/22 22:15> Onset (ago): day(s) (2) <ADRIANNE Mathis - Last Filed: 05/20/22 22:15> Onset description: gradually and while at rest <ADRIANNE Matihs Last Filed: 05/20/22 22:15> Location: left, occipital and parietal <ADRIANNE Mathis Last Filed: 05/20/22 22:15> Severity: moderate <ADRIANNE Mathis Last Filed: 05/20/22 22:15> Quality & Timing: aching, throbbing, pulsatile, squeezing and constant <ADRIANNE Mathis - Last Filed: 05/20/22 22:15> Exacerbating factors: none <ADRIANNE Mathis Last Filed: 05/20/22 22:15> Relieving factors: nothing <ADRIANNE Mathis - Last Filed: 05/20/22 22:15> Context: occurred at rest <ADRIANNE Mathis Last Filed: 05/20/22 22:15> Associated symptoms: nausea, vomiting, syncope, weakness and cough <ADRIANNE Mathis - Last Filed: 05/20/22 22:15> Treatments prior to arrival: none <ADRIANNE Mathis Last Filed: 05/20/22 22:15> Related Data Home Medications: Previous Rx's Medication Instructions Recorded ibuprofen 600 mg tablet 600 mg PO Q6H PRN pain #20 tabs 09/03/21 metronidazole 500 mg tablet 500 mg PO BID 7 days #14 tabs 01/18/22 terconazole 0.8 % vaginal cream 1 appful vaginal BEDTIME 3 days 01/18/22 #20 grams slftexluiw-ufhpidmblibuj-udftizwa 1 cap PO Q8H PRN pain #14 caps 05/20/22 50 mg-300 mg-40 mg capsule (Fioricet) sulfamethoxazole 800 1 tab PO BID 10 days #20 tabs 05/20/22 mg-trimethoprim 160 mg tablet (Bactrim DS) <Te Menon MD - Last Filed: 05/20/22 14:18> Allergies/Adverse Reactions: Allergies Allergy/AdvReac Type Severity Reaction Status Date / Time Penicillins [PENICILLINS] Allergy Severe ANGIOEDEMA Verified 02/21/22 14:37 <Te Menon MD - Last Filed: 05/20/22 14:18> Review of Systems Review of Systems: Constitutional : + generalized fatigue/malaise No Fever, No Chills, No Night Sweats ENT/Mouth : + nasal congestion/rhinorrhea/sinus pressure pain/sore throat No Ear Pain Eyes: No Eye Pain, No Swelling, No Redness, No Foreign Body, No Discharge, No Vision Changes Cardiovascular : No Chest Pain, No SOB, No Dyspnea on Exertion, No Orthopnea, No Palpitations Respiratory : + Cough, No Sputum, No Wheezing, No Dyspnea Gastrointestinal : No Nausea, + Vomiting, No Diarrhea, No Constipation, No abdominal Pain, No Hematochezia, No Melena Genitourinary : No Dysuria, No Urinary Frequency, No Urinary Incontinence, No Urgency, No Flank Pain Musculoskeletal : No joint pain, No Myalgias Skin : No lacerations Neuro : + general weakness and headache, No Focal weakness, No Numbness, No Paresthesias, No Loss of Consciousness, No Dizziness <ADRIANNE Mathis - Last Filed: 05/20/22 22:15> Yes all other systems are reviewed and are negative <ADRIANNE Mathis - Last Filed: 05/20/22 22:15> FOR[facility]LY [facility], [facility] Past Medical History Attestation statement: The following information was validated with the patient. <ADRIANNE Mathis - Last Filed: 05/20/22 22:15> Source: old records reviewed and nursing notes reviewed <ADRIANNE Mathis - Last Filed: 05/20/22 22:15> Medical History: Medical History Asthma Complex cyst of both ovaries Complex cyst of left ovary COVID-19 Endometriosis <Te Menon MD - Last Filed: 05/20/22 14:18> Family History Family History: Family History Maternal Grandmother Uterine cancer <Te Menon MD - Last Filed: 05/20/22 14:18> Social History Social History: Social History Alcohol intake: never Advance Directives: No Advance Directives Information Provided: No Sexual orientation: Straight/Heterosexual Gender identity: Female <Te Menon MD - Last Filed: 05/20/22 14:18> Physical Exam Vital Signs: Vital Signs: Last Vital Signs Temp 97.8 F 05/20/22 20:04 Pulse 89 05/20/22 20:04 Resp 16 05/20/22 20:04 BP 136/91 H 05/20/22 20:04 Pulse Ox 97 05/20/22 20:04 O2 Del Method 05/20/22 20:04 BMI result Body Mass Index 26.4 <Te Menon MD - Last Filed: 05/20/22 14:18> Vital Signs: Last Vital Signs Temp 97.8 F 05/20/22 20:04 Pulse 89 05/20/22 20:04 Resp 16 05/20/22 20:04 BP 136/91 H 05/20/22 20:04 Pulse Ox 97 05/20/22 20:04 O2 Del Method 05/20/22 20:04 BMI result Body Mass Index 26.4 Vital signs have been reviewed as normal and appeared to be correct. Blood pressure normal. Heart rate normal. Respiration rate normal. Temperature normal. Oxygen saturation normal. <ADRIANNE Mathis - Last Filed: 05/20/22 22:15> Appearance: Alert. Oriented X3. No acute distress. Head: Normal external exam. Normocephalic. Atraumatic. Able to rotate head bilaterally. Eyes: PERRLA. EOMI. No nystagmus noted. Conjunctiva and sclera normal. Eyelids normal. Corneal reflex normal. ENT: EAC normal. TM's Normal. Hearing normal. Pharynx normal. Uvula midline. tongue midline. Moist mucous membranes. No trismus noted. No drooling noted. No muffled voice noted. No nystagmus noted. Neck: Normal inspection. Neck supple. FROM. No adenopathy. Trachea midline. Thyroid Normal. No meningeal signs. No neck mass noted. CVS: Normal heart rate and rhythm. Heart sound normal. No murmurs noted. Pulses normal throughout. Respiratory: No respiratory distress. Painless inspiration. Breath sounds normal. No wheezes/rales/rhonchi noted. Chest nontender. No accessory muscle usage noted or decreased air movement noted. Abdomen: Soft and nontender. Bowel sounds normal in all 4 quadrants. No d istention noted. No organomegaly noted. No visible injury noted. Back: No CVA tenderness. Full range of motion noted. Skin: Skin warm and dry. Normal skin color. Normal skin turgor. No rashes/les ions/lacerations noted. Extremities: No lower extremity edema. Extremities exhibit normal range of m otion. Extremities nontender. Able to shrug shoulders bilaterally and keep up against resistance. Neuro: Oriented X 3. No motor deficit. No sensory deficit. Reflexes normal. Moving all extremities. No focal motor deficits. Cranial nerves II-XI intact bilaterally. Facial strength normal. Normal cognition. Speech normal. Gait normal. Strength 5/5 throughout. No pronator drift. No tremor noted. No fasciculations noted. No rigidity noted. Muscle tone normal throughout. No asterixis noted. Tooccf-rp-eluq test normal. Heel to bentley test normal. Tandem gait normal. Does not sway with eyes open. Romberg test negative. Rapid alternating movement upper extremity normal. Rapid alternating movement lower extremity normal. Hand drop from overhead Misses face. NIHSS score 0. <ADRIANNE Mathis - Last Filed: 05/20/22 22:15> Course Reevaluation(s) Reevaluation #1: headache down the occipital area, in addition had dizziness and sore throat and tactile fever. Well developed not acutely ill, lungs clear, pharynx normal <Te Menon MD - Last Filed: 05/20/22 14:18> Time: 12:48 <Te Menon MD - Last Filed: 05/20/22 14:18> Reevaluation #2: 19yoF c PMHx of ovarian cysts, endometriosis, low-grade squamous intraepithelial dysplasia, COVID-19 who is Somali-speaking reports that she had a history of a stroke 2-3 years ago was seen here although was sent home presenting to the ED with complaints of throbbing pulsating headache to the left side of her head that started on Friday. She reports she also passed out while she was laying on the bed. When she woke up she did not remember what happened she had generalized fatigue/malaise and felt like the left side of her I was drooping/partially closed. The general weakness and fatigue along with the left posterior headache has persisted since Friday. Although the left eye droopiness sensation has resolved. She reports associated nasal congestion/rhinorrhea sinus pressure pain, sore throat and some coughing. She reports she did have some vomiting. She reports she felt like she had COVID. Patient has a completely normal neuro exam. No focal deficits noted. Normal steady gait. Normal voice. Will obtain labs, CT scan of brain, UA. Provide Fioricet and re-evaluate. <ADRIANNE Mathis - Last Filed: 05/20/22 22:15> Time: 20:30 <ADRIANNE Mathis - Last Filed: 05/20/22 22:15> Reevaluation #3: - Patient positive for UTI. Negative for . Negative for COVID a and strep. - CT scan of brain within normal limits no acute processes noted. - chest x-ray within normal limits no acute processes noted. - labs returned and all labs are within normal limits. - therefore at this time will DC home with antibiotics for UTI and symptomatic treatment instructions return if any new or worsening symptoms follow up with primary care provider. Patient understands agrees with this plan. <ADRIANNE Mathis - Last Filed: 05/20/22 22:15> Time: 22:05 <ADRIANNE Mathis - Last Filed: 05/20/22 22:15> Medications Administered Discontinued Medications Generic Name Dose Route Start Last Admin Trade Name Freq PRN Reason Stop Dose Admin Acetaminophen/Butalbital/Caffeine 2 tab 05/20/22 20:31 05/20/22 20:58 Butalb/Acetamin/Caff 50/325/40 Tablet PO 05/20/22 20:32 2 tab ONCE ONE Administration <Te Menon MD - Last Filed: 05/20/22 14:18> Medications Administered Discontinued Medications Generic Name Dose Route Start Last Admin Trade Name Divya PRN Reason Stop Dose Admin Acetaminophen/Butalbital/Caffeine 2 tab 05/20/22 20:31 05/20/22 20:58 Butalb/Acetamin/Caff 50/325/40 Tablet PO 05/20/22 20:32 2 tab ONCE ONE Administration <ADRIANNE Mathis - Last Filed: 05/20/22 22:15> MDM - Headache Medical Records Attestation: I reviewed the patient's medical records. <ADRIANNE Mathis - Last Filed: 1 07/20/21 22:15> Lab Data Attestation: I reviewed the patient's lab results. <ADRIANNE Mathis - Last Filed: 1 07/20/21 22:15> Result diagrams: : 05/20/22 21:30 05/20/22 21:30 <Te Menon MD - Last Filed: 05/20/22 14:18> Labs: Lab Results 05/20/22 05/20/22 05/20/22 Range/Units 12:49 12:49 14:22 WBC (4.8-10.8) X10*3/uL RBC (4.20-5.50) X10*6/uL Hgb (12.0-16.0) g/dl Hct (37.0-47.0) % MCV (80.0-98.0) fL MCH (27.0-33.0) pg MCHC (31.0-35.0) g/dl RDW (11.0-16.0) % Plt Count (160-400) X10*3/uL MPV (9.4-12.3) fL Immature Gran % (Auto) (0.0-0.4) % Neut % (Auto) (45-73) % Lymph % (Auto) (20-40) % [place] % (Auto) (2-11) % Eos % (Auto) (0-4) % Baso % (Auto) (0-2) % Lymph # (Auto) (1.2-4.9) X10*3/uL [place] # (Auto) (0.1-1.2) X10*3/uL Eos # (Auto) (0.0-0.4) X10*3/uL Baso # (Auto) (0.0-0.2) X10*3/uL Abs Immat Gran (auto) (0.00-0.03) X10*3/uL Absolute Neuts (auto) (2.0-8.3) x10*3/uL Absolute Nucleated RBC (0.0-0.012) X10*3/uL Nucleated RBC % (auto) (0.0-0.2) /100WBC PT (10.0-13.1) SEC INR (0.9-1.1) Sodium (135-145) mmol/L Potassium (3.3-5.1) mmol/L Chloride (96-108) mmol/L Carbon Dioxide (22-29) mmol/L Anion Gap (12-20) BUN (9-16) mg/dL Creatinine (0.5-1.4) mg/dL Estim Creat Clear Calc Estimated GFR Random Glucose (60-115) mg/dL Calcium (8.4-10.2) mg/dL Magnesium (1.6-2.6) mg/dL Total Bilirubin (0.0-1.0) mg/dL AST (5-31) U/L ALT (0-31) U/L Alkaline Phosphatase (39-117) U/L C-Reactive Protein (< or = 0.50) mg/dL Total Protein (6.5-8.0) g/dL Albumin (3.5-5.0) g/dL Urine Color Yellow Urine Appearance Clear Urine pH 8.5 (5.0-9.0) Ur Specific Milnor 1.010 (1.005-1.025) Urine Protein Negative (Neg-Trace) mg/dL Urine Glucose (UA) Negative (Negative) mg/dL Urine Ketones Negative (Negative) mg/dL Urine Blood Negative (Negative) Urine Nitrite Negative (Negative) Ur Leukocyte Esterase Moderate (2+) H (Negative) Urine RBC 0-2 (0-2) /HPF Urine WBC 6-10 H (0-5) /HPF Ur Squamous Epith Cells 0-2 (0-2) /HPF Urine Bacteria 3+ (None Seen) Hyaline Casts 0-2 (0-2) /LPF Urine Test (NEGATIVE) COVID-19 (CLARITZA) Negative (Negative) COVID-19 Clin Com See Note S. pyogenes GrpA PAWAN Negative (Negative) 05/20/22 05/20/22 05/20/22 Range/Units 14:22 21:30 21:30 WBC 5.0 (4.8-10.8) X10*3/uL RBC 4.91 (4.20-5.50) X10*6/uL Hgb 12.3 (12.0-16.0) g/dl Hct 38.9 (37.0-47.0) % MCV 79.2 L (80.0-98.0) fL MCH 25.1 L (27.0-33.0) pg MCHC 31.6 (31.0-35.0) g/dl RDW 14.5 (11.0-16.0) % Plt Count 266 (160-400) X10*3/uL MPV 9.1 L (9.4-12.3) fL Immature Gran % (Auto) 0.4 (0.0-0.4) % Neut % (Auto) 47.4 (45-73) % Lymph % (Auto) 37.9 (20-40) % [place] % (Auto) 12.3 H (2-11) % Eos % (Auto) 1.2 (0-4) % Baso % (Auto) 0.8 (0-2) % Lymph # (Auto) 1.9 (1.2-4.9) X10*3/uL [place] # (Auto) 0.6 (0.1-1.2) X10*3/uL Eos # (Auto) 0.1 (0.0-0.4) X10*3/uL Baso # (Auto) 0.0 (0.0-0.2) X10*3/uL Abs Immat Gran (auto) 0.02 (0.00-0.03) X10*3/uL Absolute Neuts (auto) 2.4 (2.0-8.3) x10*3/uL Absolute Nucleated RBC 0.000 (0.0-0.012) X10*3/uL Nucleated RBC % (auto) 0.0 (0.0-0.2) /100WBC PT 11.5 (10.0-13.1) SEC INR 1.0 (0.9-1.1) Sodium (135-145) mmol/L Potassium (3.3-5.1) mmol/L Chloride (96-108) mmol/L Carbon Dioxide (22-29) mmol/L Anion Gap (12-20) BUN (9-16) mg/dL Creatinine (0.5-1.4) mg/dL Estim Creat Clear Calc Estimated GFR Random Glucose (60-115) mg/dL Calcium (8.4-10.2) mg/dL Magnesium (1.6-2.6) mg/dL Total Bilirubin (0.0-1.0) mg/dL AST (5-31) U/L ALT (0-31) U/L Alkaline Phosphatase (39-117) U/L C-Reactive Protein (< or = 0.50) mg/dL Total Protein (6.5-8.0) g/dL Albumin (3.5-5.0) g/dL Urine Color Urine Appearance Urine pH (5.0-9.0) Ur Specific Milnor (1.005-1.025) Urine Protein (Neg-Trace) mg/dL Urine Glucose (UA) (Negative) mg/dL Urine Ketones (Negative) mg/dL Urine Blood (Negative) Urine Nitrite (Negative) Ur Leukocyte Esterase (Negative) Urine RBC (0-2) /HPF Urine WBC (0-5) /HPF Ur Squamous Epith Cells (0-2) /HPF Urine Bacteria (None Seen) Hyaline Casts (0-2) /LPF Urine Test NEGATIVE (NEGATIVE) COVID-19 (CLARITZA) (Negative) COVID-19 Clin Com S. pyogenes GrpA PAWAN (Negative) 05/20/22 Range/Units 21:30 WBC (4.8-10.8) X10*3/uL RBC (4.20-5.50) X10*6/uL Hgb (12.0-16.0) g/dl Hct (37.0-47.0) % MCV (80.0-98.0) fL MCH (27.0-33.0) pg MCHC (31.0-35.0) g/dl RDW (11.0-16.0) % Plt Count (160-400) X10*3/uL MPV (9.4-12.3) fL Immature Gran % (Auto) (0.0-0.4) % Neut % (Auto) (45-73) % Lymph % (Auto) (20-40) % [place] % (Auto) (2-11) % Eos % (Auto) (0-4) % Baso % (Auto) (0-2) % Lymph # (Auto) (1.2-4.9) X10*3/uL [place] # (Auto) (0.1-1.2) X10*3/uL Eos # (Auto) (0.0-0.4) X10*3/uL Baso # (Auto) (0.0-0.2) X10*3/uL Abs Immat Gran (auto) (0.00-0.03) X10*3/uL Absolute Neuts (auto) (2.0-8.3) x10*3/uL Absolute Nucleated RBC (0.0-0.012) X10*3/uL Nucleated RBC % (auto) (0.0-0.2) /100WBC PT (10.0-13.1) SEC INR (0.9-1.1) Sodium 141 (135-145) mmol/L Potassium 3.9 (3.3-5.1) mmol/L Chloride 102 (96-108) mmol/L Carbon Dioxide 25 (22-29) mmol/L Anion Gap 18 (12-20) BUN 8 L (9-16) mg/dL Creatinine 0.81 (0.5-1.4) mg/dL Estim Creat Clear Calc 91.4 Estimated GFR > 60 Random Glucose 88 (60-115) mg/dL Calcium 9.6 (8.4-10.2) mg/dL Magnesium 2.3 (1.6-2.6) mg/dL Total Bilirubin 0.3 (0.0-1.0) mg/dL AST 20 D (5-31) U/L ALT 17 (0-31) U/L Alkaline Phosphatase 67 (39-117) U/L C-Reactive Protein 0.49 (< or = 0.50) mg/dL Total Protein 8.3 H (6.5-8.0) g/dL Albumin 4.8 (3.5-5.0) g/dL Urine Color Urine Appearance Urine pH (5.0-9.0) Ur Specific Milnor (1.005-1.025) Urine Protein (Neg-Trace) mg/dL Urine Glucose (UA) (Negative) mg/dL Urine Ketones (Negative) mg/dL Urine Blood (Negative) Urine Nitrite (Negative) Ur Leukocyte Esterase (Negative) Urine RBC (0-2) /HPF Urine WBC (0-5) /HPF Ur Squamous Epith Cells (0-2) /HPF Urine Bacteria (None Seen) Hyaline Casts (0-2) /LPF Urine Test (NEGATIVE) COVID-19 (CLARITZA) (Negative) COVID-19 Clin Com S. pyogenes GrpA PAWAN (Negative) <Te Menon MD - Last Filed: 05/20/22 14:18> Lab Results 05/20/22 05/20/22 05/20/22 Range/Units 12:49 12:49 14:22 WBC (4.8-10.8) X10*3/uL RBC (4.20-5.50) X10*6/uL Hgb (12.0-16.0) g/dl Hct (37.0-47.0) % MCV (80.0-98.0) fL MCH (27.0-33.0) pg MCHC (31.0-35.0) g/dl RDW (11.0-16.0) % Plt Count (160-400) X10*3/uL MPV (9.4-12.3) fL Immature Gran % (Auto) (0.0-0.4) % Neut % (Auto) (45-73) % Lymph % (Auto) (20-40) % [place] % (Auto) (2-11) % Eos % (Auto) (0-4) % Baso % (Auto) (0-2) % Lymph # (Auto) (1.2-4.9) X10*3/uL [place] # (Auto) (0.1-1.2) X10*3/uL Eos # (Auto) (0.0-0.4) X10*3/uL Baso # (Auto) (0.0-0.2) X10*3/uL Abs Immat Gran (auto) (0.00-0.03) X10*3/uL Absolute Neuts (auto) (2.0-8.3) x10*3/uL Absolute Nucleated RBC (0.0-0.012) X10*3/uL Nucleated RBC % (auto) (0.0-0.2) /100WBC PT (10.0-13.1) SEC INR (0.9-1.1) Sodium (135-145) mmol/L Potassium (3.3-5.1) mmol/L Chloride (96-108) mmol/L Carbon Dioxide (22-29) mmol/L Anion Gap (12-20) BUN (9-16) mg/dL Creatinine (0.5-1.4) mg/dL Estim Creat Clear Calc Estimated GFR Random Glucose (60-115) mg/dL Calcium (8.4-10.2) mg/dL Magnesium (1.6-2.6) mg/dL Total Bilirubin (0.0-1.0) mg/dL AST (5-31) U/L ALT (0-31) U/L Alkaline Phosphatase (39-117) U/L C-Reactive Protein (< or = 0.50) mg/dL Total Protein (6.5-8.0) g/dL Albumin (3.5-5.0) g/dL Urine Color Yellow Urine Appearance Clear Urine pH 8.5 (5.0-9.0) Ur Specific Milnor 1.010 (1.005-1.025) Urine Protein Negative (Neg-Trace) mg/dL Urine Glucose (UA) Negative (Negative) mg/dL Urine Ketones Negative (Negative) mg/dL Urine Blood Negative (Negative) Urine Nitrite Negative (Negative) Ur Leukocyte Esterase Moderate (2+) H (Negative) Urine RBC 0-2 (0-2) /HPF Urine WBC 6-10 H (0-5) /HPF Ur Squamous Epith Cells 0-2 (0-2) /HPF Urine Bacteria 3+ (None Seen) Hyaline Casts 0-2 (0-2) /LPF Urine Test (NEGATIVE) COVID-19 (CLARITZA) Negative (Negative) COVID-19 Clin Com See Note S. pyogenes GrpA PAWAN Negative (Negative) 05/20/22 05/20/22 05/20/22 Range/Units 14:22 21:30 21:30 WBC 5.0 (4.8-10.8) X10*3/uL RBC 4.91 (4.20-5.50) X10*6/uL Hgb 12.3 (12.0-16.0) g/dl Hct 38.9 (37.0-47.0) % MCV 79.2 L (80.0-98.0) fL MCH 25.1 L (27.0-33.0) pg MCHC 31.6 (31.0-35.0) g/dl RDW 14.5 (11.0-16.0) % Plt Count 266 (160-400) X10*3/uL MPV 9.1 L (9.4-12.3) fL Immature Gran % (Auto) 0.4 (0.0-0.4) % Neut % (Auto) 47.4 (45-73) % Lymph % (Auto) 37.9 (20-40) % [place] % (Auto) 12.3 H (2-11) % Eos % (Auto) 1.2 (0-4) % Baso % (Auto) 0.8 (0-2) % Lymph # (Auto) 1.9 (1.2-4.9) X10*3/uL [place] # (Auto) 0.6 (0.1-1.2) X10*3/uL Eos # (Auto) 0.1 (0.0-0.4) X10*3/uL Baso # (Auto) 0.0 (0.0-0.2) X10*3/uL Abs Immat Gran (auto) 0.02 (0.00-0.03) X10*3/uL Absolute Neuts (auto) 2.4 (2.0-8.3) x10*3/uL Absolute Nucleated RBC 0.000 (0.0-0.012) X10*3/uL Nucleated RBC % (auto) 0.0 (0.0-0.2) /100WBC PT 11.5 (10.0-13.1) SEC INR 1.0 (0.9-1.1) Sodium (135-145) mmol/L Potassium (3.3-5.1) mmol/L Chloride (96-108) mmol/L Carbon Dioxide (22-29) mmol/L Anion Gap (12-20) BUN (9-16) mg/dL Creatinine (0.5-1.4) mg/dL Estim Creat Clear Calc Estimated GFR Random Glucose (60-115) mg/dL Calcium (8.4-10.2) mg/dL Magnesium (1.6-2.6) mg/dL Total Bilirubin (0.0-1.0) mg/dL AST (5-31) U/L ALT (0-31) U/L Alkaline Phosphatase (39-117) U/L C-Reactive Protein (< or = 0.50) mg/dL Total Protein (6.5-8.0) g/dL Albumin (3.5-5.0) g/dL Urine Color Urine Appearance Urine pH (5.0-9.0) Ur Specific Milnor (1.005-1.025) Urine Protein (Neg-Trace) mg/dL Urine Glucose (UA) (Negative) mg/dL Urine Ketones (Negative) mg/dL Urine Blood (Negative) Urine Nitrite (Negative) Ur Leukocyte Esterase (Negative) Urine RBC (0-2) /HPF Urine WBC (0-5) /HPF Ur Squamous Epith Cells (0-2) /HPF Urine Bacteria (None Seen) Hyaline Casts (0-2) /LPF Urine Test NEGATIVE (NEGATIVE) COVID-19 (CLARITZA) (Negative) COVID-19 Clin Com S. pyogenes GrpA PAWAN (Negative) 05/20/22 Range/Units 21:30 WBC (4.8-10.8) X10*3/uL RBC (4.20-5.50) X10*6/uL Hgb (12.0-16.0) g/dl Hct (37.0-47.0) % MCV (80.0-98.0) fL MCH (27.0-33.0) pg MCHC (31.0-35.0) g/dl RDW (11.0-16.0) % Plt Count (160-400) X10*3/uL MPV (9.4-12.3) fL Immature Gran % (Auto) (0.0-0.4) % Neut % (Auto) (45-73) % Lymph % (Auto) (20-40) % [place] % (Auto) (2-11) % Eos % (Auto) (0-4) % Baso % (Auto) (0-2) % Lymph # (Auto) (1.2-4.9) X10*3/uL Sweet [place] # (Auto) (0.1-1.2) X10*3/uL Eos # (Auto) (0.0-0.4) X10*3/uL Baso # (Auto) (0.0-0.2) X10*3/uL Abs Immat Gran (auto) (0.00-0.03) X10*3/uL Absolute Neuts (auto) (2.0-8.3) x10*3/uL Absolute Nucleated RBC (0.0-0.012) X10*3/uL Nucleated RBC % (auto) (0.0-0.2) /100WBC PT (10.0-13.1) SEC INR (0.9-1.1) Sodium 141 (135-145) mmol/L Potassium 3.9 (3.3-5.1) mmol/L Chloride 102 (96-108) mmol/L Carbon Dioxide 25 (22-29) mmol/L Anion Gap 18 (12-20) BUN 8 L (9-16) mg/dL Creatinine 0.81 (0.5-1.4) mg/dL Estim Creat Clear Calc 91.4 Estimated GFR > 60 Random Glucose 88 (60-115) mg/dL Calcium 9.6 (8.4-10.2) mg/dL Magnesium 2.3 (1.6-2.6) mg/dL Total Bilirubin 0.3 (0.0-1.0) mg/dL AST 20 D (5-31) U/L ALT 17 (0-31) U/L Alkaline Phosphatase 67 (39-117) U/L C-Reactive Protein 0.49 (< or = 0.50) mg/dL Total Protein 8.3 H (6.5-8.0) g/dL Albumin 4.8 (3.5-5.0) g/dL Urine Color Urine Appearance Urine pH (5.0-9.0) Ur Specific Milnor (1.005-1.025) Urine Protein (Neg-Trace) mg/dL Urine Glucose (UA) (Negative) mg/dL Urine Ketones (Negative) mg/dL Urine Blood (Negative) Urine Nitrite (Negative) Ur Leukocyte Esterase (Negative) Urine RBC (0-2) /HPF Urine WBC (0-5) /HPF Ur Squamous Epith Cells (0-2) /HPF Urine Bacteria (None Seen) Hyaline Casts (0-2) /LPF Urine Test (NEGATIVE) COVID-19 (CLARITZA) (Negative) COVID-19 Clin Com S. pyogenes GrpA PAWAN (Negative) <ADRIANNE Mathis - Last Filed: 05/20/22 22:15> Imaging Data CT scan of brain without contrast: Attestation: I personally reviewed and interpreted this imaging study as follows: <ADRIANNE Mathis - Last Filed: 05/20/22 22:15> Radiologist's impression: FINDINGS: There is no evidence of acute intracranial hemorrhage or territorial infarction. No abnormal mass-effect or midline shift is seen. Batista to white matter differentiation is well preserved. No extra-axial fluid collections are identified. The ventricles are normal in size. There is no abnormal attenuation within the brain parenchyma. There is no osseous abnormality. The mastoid air cells and visualized portions of the paranasal sinuses are well-aerated. ? CT/CT head/brain wo IV con IMPRESSION: No acute intracranial pathology. ? <ADRIANNE Mathis - Last Filed: 05/20/22 22:15> Chest x-ray: Attestation: I personally reviewed and interpreted this imaging study as follows: <ADRIANNE Mathis - Last Filed: 05/20/22 22:15> Radiologist's impression: FINDINGS: No significant abnormality is noted involving the heart, lungs, mediastinum, bony thorax or soft tissues. XR/XR chest 1V IMPRESSION: Unremarkable chest examination. <ADRIANNE Mathis - Last Filed: 05/20/22 22:15> Discharge Plan Discharge Clinical Impression: UTI (urinary tract infection), Acute viral syndrome, Headache <Te Menon MD - Last Filed: 05/20/22 14:18> Patient Disposition: Home, Self-Care <Te Menon MD - Last Filed: 05/20/22 14:18> Instructions: Urinary Tract Infection in Women (ED), Viral Syndrome (ED), General Headache (ED) <Te Menon MD - Last Filed: 05/20/22 14:18> Prescriptions: New sulfamethoxazole-trimethoprim [Bactrim DS] 800-160 mg tablet 1 tab PO BID 10 Days Qty: 20 0RF umqxlzcxze-mohscsowcbkpr-immt [Fioricet] 50-300-40 mg capsule 1 cap PO Q8H PRN (Reason: pain) Qty: 14 0RF No Action metronidazole 500 mg tablet 500 mg PO BID 7 Days Qty: 14 0RF terconazole 0.8 % cream 1 appful vaginal BEDTIME 3 Days Qty: 20 0RF ibuprofen 600 mg tablet 600 mg PO Q6H PRN (Reason: pain) Qty: 20 0RF <Te Menon MD - Last Filed: 05/20/22 14:18> Referrals: Yessi Holloway [Primary Care Provider] - 2 days <Te Menon MD - Last Filed: 05/20/22 14:18> Stand Alone Forms: Work/School Release <Te Menon MD - Last Filed: 05/20/22 14:18> Print Language: Somali <Te Menon MD - Last Filed: 05/20/22 14:18>
[2022-05-20 13:11] LABS: COVID-19 Test Negative (Negative)
[2022-05-20 13:24] LABS: Strep A Nucleic Acid Negative (Negative)
[2022-05-20 14:39] LABS: Appearance Urine Clear; Color Urine Yellow; Glucose Urine UA Negative (Negative); Leukocyte Esterase Urine Moderate (2+) (Negative); Nitrite Urine Negative (Negative); PH 8.5 (5.0-9.0); UMIC TRIGGER UACC YES; Urine Blood Negative (Negative); Urine Ketones Negative (Negative); Urine Protein Negative (Neg-Trace)
[2022-05-20 14:41] LABS: UPreg QC Valid YES; Urine Pregnancy NEGATIVE (NEGATIVE)
[2022-05-20 14:42] LABS: Bacteria Urine 3+ (None Seen); Hyaline Casts Urine 0-2 /LPF (0-2); RBC Urine 0-2 /HPF (0-2); Squamous Epithelial Cell Urine 0-2 /HPF (0-2); UACC Culture Trigger YES
[2022-05-20 20:04] VITALS: BP 136/91; PULSE 89; RESP 16; TEMP 36.6; O2SAT 97
[2022-05-20] MEDS: Butalb/Acetamin/Caff 50/325/40 TABLET 2 TAB PO (20:58)
--- NOTE | 2022-05-20 21:08 | PC.NURSE ---
Pt Medicated per Mar, pt resting in bed. No sign of distress. Notified Edu Wiseman. Will continue to monitor
[2022-05-20 21:38] LABS: MANUAL DIFF FLAG NO
[2022-05-20 21:47] LABS: Basophils Percent Auto 0.8 % (0-2); Eosinophils Absolute Auto 0.1 X10*3/uL (0.0-0.4); Eosinophils Percent Auto 1.2 % (0-4); Hematocrit 38.9 % (37.0-47.0); Hemoglobin 12.3 g/dl (12.0-16.0); Imm Gran Abs Auto 0.02 X10*3/uL (0.00-0.03); Imm Gran Pct Auto 0.4 % (0.0-0.4); Lymphocytes Absolute Auto 1.9 X10*3/uL (1.2-4.9); Lymphocytes Percent Auto 37.9 % (20-40); Mean Corpuscular HGB Conc 31.6 g/dl (31.0-35.0); Mean Corpuscular Hemoglobin 25.1 pg (27.0-33.0); Mean Corpuscular Volume 79.2 fL (80.0-98.0); Mean Platelet Volume 9.1 fL (9.4-12.3); Monocytes Absolute Auto 0.6 X10*3/uL (0.1-1.2); Monocytes Percent Auto 12.3 % (2-11); Neutrophils Absolute Auto 2.4 x10*3/uL (2.0-8.3); Neutrophils Percent Auto 47.4 % (45-73); Platelet Count 266 X10*3/uL (160-400); Red Blood Count 4.91 X10*6/uL (4.20-5.50); Red Cell Distribution Width 14.5 % (11.0-16.0)
[2022-05-20 21:55] LABS: Prothrombin Time 11.5 SEC (10.0-13.1)
[2022-05-20 22:03] LABS: Alanine Aminotransferase 17 U/L (0-31); Albumin Level 4.8 g/dL (3.5-5.0); Alkaline Phosphatase 67 U/L (39-117); Anion Gap 18 (12-20); Aspartate Amino Transferase 20 U/L (5-31); Bilirubin Total 0.3 mg/dL (0.0-1.0); Blood Urea Nitrogen 8 mg/dL (9-16); C Reactive Protein 0.49 mg/dL (< or = 0.50); Calcium 9.6 mg/dL (8.4-10.2); Carbon Dioxide 25 mmol/L (22-29); Chloride 102 mmol/L (96-108); Creatinine Clr Calc Pharmacy 91.4; Estimated Glomerular Filt Rate > 60; Glucose Random 88 mg/dL (60-115); Magnesium 2.3 mg/dL (1.6-2.6); Potassium 3.9 mmol/L (3.3-5.1); Sodium 141 mmol/L (135-145); Total Protein 8.3 g/dL (6.5-8.0)
[2022-05-20 22:19] LABS: Erythrocyte Sedimentation Rate 29 MM/HR (0-20)
== END 2022-05-20 22:21 | disposition home or self-care (01) ==
PROVIDERS: Emergency Medicine; Physician Assistant Medical; Emergency Provider Emergency Medicine; PCP Nurse Practitioner Family
DX: B34.9 Viral infection, unspecified (principal); R51.9 Headache, unspecified; N39.0 Urinary tract infection, site not specified; B96.20 Unspecified Escherichia coli [E. coli] as the cause of diseases classified elsewhere; Z20.822 Contact with and (suspected) exposure to COVID-19
CPT/HCPCS: 36415; 70450; 80053; 81001; 81025; 83735; 85025; 85610; 85652; 86140; 87086; 87088; 87186; 87635; 87651; 99283; 99284

== ENCOUNTER → 2022-07-23 12:27 | Outpatient (BNVA) | payer MEDICAID, SELFPAY | PROVIDERS: PCP Registered Nurse; Visit Provider Obstetrics & Gynecology | DX: Z13.89 Encounter for screening for other disorder (principal) ==

== ENCOUNTER 2022-07-24 14:03 | Outpatient (REF) | payer MEDICAID, SELFPAY ==
[2022-07-25 01:54] LABS: CT PCR NOT DETECTED (Not Detect.); NG PCR NOT DETECTED (Not Detect.)
== END 2022-07-24 14:04 | disposition home or self-care (01) ==
LOC: HO.LNP 14:03
PROVIDERS: PCP Registered Nurse; Visit Provider Obstetrics & Gynecology
DX: Z11.3 Encounter for screening for infections with a predominantly sexual mode of transmission (principal); R10.2 Pelvic and perineal pain
CPT/HCPCS: 0353U; 81025; 99212

== ENCOUNTER 2022-08-13 16:21 | Outpatient (REF) | payer MEDICAID, SELFPAY ==
--- NOTE | ~2022-08-13 | US_ITS ---
EXAMINATION: US PELVIS COMPLETE CLINICAL INFORMATION: Pelvic pain COMPARISON: MRI pelvis 09/20/2021, Pelvic ultrasound 08/29/2021 TECHNIQUE: Transabdominal and endovaginal imaging was performed. FINDINGS: The uterus is of normal size and echogenicity measuring 7.8 x 3.3 x 4.6 cm. A regular homogeneous endometrium is identified measuring 0.6 cm. The right ovary measures 4.4 x 3.7 x 4.2 cm for a volume of 39.1 mL. The left measures 5.9 x 3.5 x 5.6 cm for a volume of 60.6 mL. Right ovary is remarkable for a 3.3 x 2.9 x 2.1 cm cystic lesion with lacelike internal reticulation and low-level internal echoes, previously measured 3.7 cm. The left ovary is remarkable for a 5.8 x 3.0 x 5.2 cm cystic lesion with low-level internal echoes which previously measured 3.2 cm. Ovaries demonstrate a kissing ovary sign. There is no pelvic free fluid. US/US pelvic and transvaginal IMPRESSION: Bilateral complex cystic ovarian lesions measuring 3.3 cm on the right, slightly decreased from prior and measuring 5.8 cm on the left, increased in size from prior for which differential considerations could include endometriomas and/or hemorrhagic cysts consider follow-up pelvic ultrasound in 6-12 weeks. Ovaries demonstrate a kissing ovaries sign, suggestive of pelvic adhesions which could be secondary to endometriosis.
== END 2022-08-13 16:22 | disposition home or self-care (01) ==
LOC: HO.US 16:21
PROVIDERS: Visit Provider Obstetrics & Gynecology
DX: R10.2 Pelvic and perineal pain (principal)
CPT/HCPCS: 76830; 76856

== ENCOUNTER 2022-11-09 23:09 | Emergency (ER) | payer MEDICAID, SELFPAY ==
[2022-11-09 23:53] VITALS: BP 127/70; PULSE 111; RESP 16; TEMP 36.9; O2SAT 98; BMI 27.2
[2022-11-10 01:31] VITALS: BP 117/72; PULSE 104; RESP 22; TEMP 37.2; O2SAT 99
[2022-11-10 01:50] LABS: IDNOW Serial# 08D9AD1C; Strep A Nucleic Acid Negative (Negative)
--- NOTE | 2022-11-10 01:50 | PC.NURSE ---
pt c/o pain in lisa area, has recurring cyst that gets drained 10/10 pain pt states she has not checked temp but does feel febrile no apparent distress boyfriend at bedside aox4
[2022-11-10 01:53] LABS: COVID-19 Test Negative (Negative); IDNOW Serial# BCCEAD1C
[2022-11-10 02:45] VITALS: BP 110/65; PULSE 108; RESP 22; TEMP 37.5; O2SAT 97
--- NOTE | 2022-11-10 05:07 | ED_ITS ---
HPI - General Adult General Chief complaint: General Medical Stated complaint: ?Sore throat Time Seen by Provider: 11/10/22 03:47 Source: patient Mode of arrival: ambulatory Limitations: no limitations History of Present Illness HPI narrative: Patient comes to the emergency room complaining of a Bartholin cyst in the right labia my aura. Patient states that this is the 13th time that she has is happening. Patient states that she has been seen by OB Gyne, states that Dr. Andres be told her that patient will likely need a marsupialization. Patient denies fever chills Related Data Previous Rx's Medication Instructions Recorded ibuprofen 600 mg tablet 600 mg PO Q6H PRN pain #20 tabs 09/03/21 terconazole 0.8 % vaginal cream 1 appful vaginal BEDTIME 3 days 01/18/22 #20 grams txnkkkaizc-qicyojyyqzlnl-rqebaocz 1 cap PO Q8H PRN pain #14 caps 05/20/22 50 mg-300 mg-40 mg capsule (Fioricet) sulfamethoxazole 800 1 tab PO BID #14 tabs 11/10/22 mg-trimethoprim 160 mg tablet (Bactrim DS) tramadol 50 mg tablet 50 mg PO BID PRN pain #7 tabs 11/10/22 Allergies Allergy/AdvReac Type Severity Reaction Status Date / Time Penicillins [PENICILLINS] Allergy Severe ANGIOEDEMA Verified 07/23/22 12:28 Review of Systems Review of Systems: Constitutional : No Weight loss, No Fever, No Chills, No Night Sweats, No Fatigue, No Malaise ENT/Mouth : No Hearing loss, No Ear Pain, No Nasal Congestion, No Sinus Pain, No Hoarseness, No sore throat, No Rhinorrhea, No Swallowing Difficulty Eyes: No Eye Pain, No Swelling, No Redness, No Foreign Body, No Discharge, No Vision Changes Cardiovascular : No Chest Pain, No SOB, No Dyspnea on Exertion, No Orthopnea, No Edema, No Palpitations Respiratory : No Cough, No Sputum, No Wheezing, No Smoke Exposure, No Dyspnea Gastrointestinal : No Nausea, No Vomiting, No Diarrhea, No Constipation, No abdominal Pain, No Hematochezia, No Melena Genitourinary : Complaining of a right sided Bartholin cyst, no irregular bleeding, No Dysuria, No Urinary Frequency, No Hematuria, No Urinary Incontinence, No Urgency, No Flank Pain, No Urinary Flow Changes, No Hesitancy Musculoskeletal : No joint pain, No Myalgias, No Joint Swelling Skin : No Skin Lesions, No rash Neuro : No Weakness, No Numbness, No Paresthesias, No Loss of Consciousness, No Dizziness, No Headache Psych : No Anxiety/Panic, No Depression, No SI/HI/AH/VH, No Social Issues, Heme/Lymph: No Bruising, No Bleeding,No Lymphadenopathy Endocrine : No Polyuria, No Polydipsia, No Temperature Intolerance [facility] Past Medical History Medical History Asthma Complex cyst of both ovaries Complex cyst of left ovary COVID-19 Endometriosis Family History Family History Maternal Grandmother Uterine cancer Social History Social History Alcohol intake: never Smoked in Last 30 Days: No Use of substances other than those prescribed or required for medical reasons: No Advance Directives: No Advance Directives Information Provided: No Patient : No Sexual orientation: Straight/Heterosexual Gender identity: Female Physical Exam ED Vital Signs: Vital Signs - 24 hr 11/09/22 23:53 11/10/22 01:31 11/10/22 02:45 Temperature 98.4 F 99.0 F 99.5 F Pulse Rate 111 H 104 H 108 H Respiratory Rate 16 22 H 22 H Blood Pressure 127/70 117/72 110/65 Pulse Oximetry 98 99 97 Oxygen Delivery Method Room Air Room Air Room Air BMI result Body Mass Index 27.2 Const Other: Appearance: Alert. Oriented X3. No acute distress. Eyes: Pupils equal, round and reactive to light. ENT: Pharynx normal. Neck: Normal inspection. Neck supple. No lymph nodes noted. No crepitus CVS: Normal heart rate and rhythm. Pulses normal. Normal S1 and S2 Respiratory: No respiratory distress. Breath sounds normal. No Wheezing. No rales Abdomen: Soft and nontender. No rigidity. No distention. : Bartholin's cyst present Skin: Skin warm and dry. Normal skin color. Normal skin turgor. Extremities: No lower extremity edema. No Lacerations. No Rash Neuro: Oriented X 3. No motor deficit. No sensory deficit. Moving all extremities. No slurred speech. CN 2 through 12 grossly intact Psych: calm, cooperative, normal affect Medical Decision Making Medical Decision Making MDM Narrative: -I discussed with the patient that she will likely need a marsupialization, we will get in touch with Dr. Andres -patient was given 1 dose of p.o. oxycodone. -before we were able to call Dr. Andres the cyst popped and started draining by itself -I discussed with the patient that ideally we should still numb the area, and apply a catheter to avoid the cyst from closing. Patient respectfully declined. Patient will be applying warm compresses, patient will call Dr. Andres in the morning tomorrow, and schedule an appointment. If the cyst closes and stops draining and the pain returns, patient will need an I&D Lab Data Labs: Lab Results 11/10/22 11/10/22 Range/Units 01:26 01:26 COVID-19 (CLARITZA) Negative (Negative) COVID-19 Clin Com See Note S. pyogenes GrpA PAWAN Negative (Negative) Discharge Plan Discharge Clinical Impression: Abscess of Bartholin's gland Patient Disposition: Home, Self-Care Instructions: Bartholin Cyst (ED) Additional Instructions: Please follow-up with your primary care physician tomorrow. If you have any worsening or new symptoms, please return to the emergency room or call 911 Prescriptions: New tramadol 50 mg tablet 50 mg PO BID PRN (Reason: pain) Qty: 7 0RF sulfamethoxazole-trimethoprim [Bactrim DS] 800-160 mg tablet 1 tab PO BID Qty: 14 0RF No Action terconazole 0.8 % cream 1 appful vaginal BEDTIME 3 Days Qty: 20 0RF iwzdcpbmoh-yugboogajlblo-abnx [Fioricet] 50-300-40 mg capsule 1 cap PO Q8H PRN (Reason: pain) Qty: 14 0RF ibuprofen 600 mg tablet 600 mg PO Q6H PRN (Reason: pain) Qty: 20 0RF Referrals: Girish Andres MD [Physician] - 11/11/22
--- NOTE | 2022-11-10 05:47 | PC.NURSE ---
discharge instructions given and explained no apparent distress pt ambulates safely/ind aox4
[2022-11-10] MEDS: Acetaminophen 325 MG TABLET 650 MG PO (05:48)
== END 2022-11-10 05:46 | disposition home or self-care (01) ==
PROVIDERS: Emergency Provider Emergency Medicine
DX: N75.1 Abscess of Bartholin's gland (principal); Z20.822 Contact with and (suspected) exposure to COVID-19; Z20.828 Contact with and (suspected) exposure to other viral communicable diseases; Z79.899 Other long term (current) drug therapy
CPT/HCPCS: 87635; 87651; 99284

== ENCOUNTER 2023-01-03 20:30 | Emergency (ER) | payer MEDICAID, SELFPAY ==
[2023-01-03 20:54] VITALS: BP 112/71; PULSE 100; RESP 16; TEMP 36.9; O2SAT 98; BMI 26.2
[2023-01-03 22:23] LABS: MANUAL DIFF FLAG NO
[2023-01-03 22:26] LABS: Basophils Percent Auto 0.2 % (0-2); Eosinophils Absolute Auto 0.2 X10*3/uL (0.0-0.4); Eosinophils Percent Auto 1.3 % (0-4); Hematocrit 36.5 % (37.0-47.0); Hemoglobin 11.8 g/dl (12.0-16.0); Imm Gran Abs Auto 0.05 X10*3/uL (0.00-0.03); Imm Gran Pct Auto 0.4 % (0.0-0.4); Lymphocytes Absolute Auto 2.9 X10*3/uL (1.2-4.9); Lymphocytes Percent Auto 21.2 % (20-40); Mean Corpuscular HGB Conc 32.3 g/dl (31.0-35.0); Mean Corpuscular Hemoglobin 25.2 pg (27.0-33.0); Mean Platelet Volume 9.7 fL (9.4-12.3); Monocytes Percent Auto 7.4 % (2-11); Neutrophils Absolute Auto 9.4 x10*3/uL (2.0-8.3); Neutrophils Percent Auto 69.5 % (45-73); Platelet Count 240 X10*3/uL (160-400); Red Blood Count 4.68 X10*6/uL (4.20-5.50); Red Cell Distribution Width 15.4 % (11.0-16.0); White Blood Count 13.6 X10*3/uL (4.8-10.8)
[2023-01-03 22:28] LABS: Appearance Urine Clear; Color Urine Yellow; Glucose Urine UA Negative (Negative); Leukocyte Esterase Urine Small (1+) (Negative); Nitrite Urine Negative (Negative); PH 5.5 (5.0-9.0); Specific Gravity - Urine 1.015 (1.005-1.025); UMIC TRIGGER UACC YES; Urine Blood Negative (Negative); Urine Ketones Negative (Negative); Urine Protein Negative (Neg-Trace)
[2023-01-03 22:31] LABS: UPreg QC Valid YES; Urine Pregnancy NEGATIVE (NEGATIVE)
[2023-01-03 22:39] LABS: Bacteria Urine None Seen (None Seen); RBC Urine 0-2 /HPF (0-2); Squamous Epithelial Cell Urine 0-2 /HPF (0-2); UACC Culture Trigger YES; WBC Urine 0-5 /HPF (0-5)
[2023-01-03 22:42] LABS: Anion Gap 14 (12-20); Blood Urea Nitrogen 10 mg/dL (9-16); Calcium 9.6 mg/dL (8.4-10.2); Carbon Dioxide 24 mmol/L (22-29); Chloride 105 mmol/L (96-108); Creatinine Clr Calc Pharmacy 102.3; Estimated Glomerular Filt Rate > 60; Glucose Random 91 mg/dL (60-115); Potassium 3.5 mmol/L (3.3-5.1); Sodium 139 mmol/L (135-145)
[2023-01-04] VITALS: BP 114/65; PULSE 74; RESP 16; TEMP 36.6; O2SAT 97
--- NOTE | 2023-01-04 00:07 | ED.GENADULT ---
HPI - General Adult General Chief complaint: General Medical Stated complaint: Vaginal cyst Time Seen by Provider: 01/04/23 00:06 Source: patient Mode of arrival: ambulatory Limitations: no limitations History of Present Illness HPI narrative: 22-year-old female presents with discomfort to the right labia for the past 3 days, with subjective fevers, chills, fatigue and malaise. Patient tells me that she has a history of frequent recurrent Bartholin cyst followed by Dr. Andres, usually requiring incision and drainage. She also reports that at this time she is having scant vaginal spotting, she is status post laparoscopic endometriosis surgery in [place] 3-4 weeks ago, postop bleeding was normal according to patient's surgeon she states. She reports she had some heavy bleeding 3 days ago however that has subsided and now she is only having intermittent spotting and using a few liners a day. Patient denieschest pain, shortness of breath, nausea, vomiting, abdominal pain, headache, vision changes, dizziness and weakness. Related Data Previous Rx's Medication Instructions Recorded ibuprofen 600 mg tablet 600 mg PO Q6H PRN pain #20 tabs 09/03/21 terconazole 0.8 % vaginal cream 1 appful vaginal BEDTIME 3 days 01/18/22 #20 grams ltufsxowsb-kdyeqtgpdfdgm-uqyouljz 1 cap PO Q8H PRN pain #14 caps 05/20/22 50 mg-300 mg-40 mg capsule (Fioricet) sulfamethoxazole 800 1 tab PO BID #14 tabs 11/10/22 mg-trimethoprim 160 mg tablet (Bactrim DS) tramadol 50 mg tablet 50 mg PO BID PRN pain #7 tabs 11/10/22 doxycycline hyclate 100 mg capsule 100 mg PO BID 10 days #20 caps 01/04/23 ketorolac 10 mg tablet 10 mg PO TID PRN pain 5 days #15 01/04/23 tabs Allergies Allergy/AdvReac Type Severity Reaction Status Date / Time Penicillins [PENICILLINS] Allergy Severe ANGIOEDEMA Verified 07/23/22 12:28 Review of Systems Review of Systems: Constitutional : No Weight loss, No Fever, No Chills, No Fatigue, No Malaise ENT/Mouth : No sore throat, No Rhinorrhea Eyes: No Eye Pain, No Swelling, No Redness Cardiovascular : No Chest Pain, No SOB, No Dyspnea on Exertion, No Orthopnea, No Edema, No Palpitations Respiratory : No Cough, No Sputum, No Wheezing Gastrointestinal : No Nausea, No Vomiting, No Diarrhea, No Constipation, No abdominal Pain, No Hematochezia, No Melena Genitourinary : No Dysuria, No Urinary Frequency, No Hematuri + vaginal bleeding Musculoskeletal : No joint pain, No Myalgias, No Joint Swelling Skin : No Skin Lesions, No rash, + cyst Neuro : No Weakness, No Numbness, No Dizziness, No Headache Psych : No Anxiety/Panic, No Depression All other systems reviewed and are negative Yes all other systems are reviewed and are negative [facility] Past Medical History Attestation statement: The following information was validated with the patient. Source: old records reviewed and nursing notes reviewed Medical History Asthma Complex cyst of both ovaries Complex cyst of left ovary COVID-19 Endometriosis Family History Family History Maternal Grandmother Uterine cancer Social History Social History Alcohol intake: never Advance Directives: No Advance Directives Information Provided: No Sexual orientation: Straight/Heterosexual Gender identity: Female Physical Exam ED Vital Signs: Vital Signs - 24 hr 01/03/23 20:54 Temperature 98.4 F Pulse Rate 100 Respiratory Rate 16 Blood Pressure 112/71 Pulse Oximetry 98 BMI result Body Mass Index 26.2 vss Appearance: Alert.? Oriented X3.? No acute distress.? Head: Normocephalic, atraumatic, no step-offs or deformities Eyes: Pupils equal, round and reactive to light.? ENT: Pharynx normal.? Neck: Normal inspection.? Neck supple.? CVS: Normal heart rate and rhythm.? Pulses normal.? Respiratory: No respiratory distress.? Breath sounds normal.? Abdomen: Soft and nontender.? Skin: Skin warm and dry.? Normal skin color.? Normal skin turgor.? Extremities: No lower extremity edema.? No calf ttp. 5/5 strength to bilateral upper and lower extremities Back: No midline tenderness, no C-spine tenderness, full range of motion, no CVA tenderness bilaterally Neuro: Oriented X 3.? No motor deficit.? No sensory deficit. CN 2-12 intact Sensative exam: Margie CONNOLLY at the bedside. large r. sided bartholins cyst w/ enlarged r. labia minora and majora w/ overlying errythema and warmth. No bleeding noted in the vaginal introitus. Normal external genitalia. Course Reevaluation(s) Reevaluation #1: CBC with slight leukocytosis 13.6 likely secondary to only insist. There is a microcytic anemia noted however this appears to be around patient's baseline. Chemistry without acute electrolyte abnormalities requiring intervention. UA without infection. Urine negative. No tenderness on exam, no indication for CT abdomen and pelvis, or pelvic transvaginal ultrasound. I do not suspect ovarian torsion, ruptured ovarian cyst, ectopic . I did do a incision and drainage at the bedside with local lidocaine anesthetic 1% 4 CC total used. Around 8 CC of purulence expressed. Patient tollerated procedure well. Will have her follow-up with OBGYN. Educated patient on diagnosis and treatment plan, answered all question, patient verbalizes understanding. At this time patient will be discharged home, advised to return with new or worsening symptoms. Educated on worrisome signs and symptoms and when to return. At this time I feel comfortable discharge home. Time: 00:29 Medical Decision Making Medical Decision Making [facility] Narrative: 0021 22 year old female presents w/ bartholins cyst X3 days ( hx of this) and vaginal spotting X 3 days. Recent laproscopic surgery to tx endometriosis 3-4 weeks ago PE- large r. sided bartholins cyst w/ enlarged r. labia minora and majora w/ overlying errythema and warmth. No bleeding noted in the vaginal introitus. Normal external genitalia. Likely normal post op bleeding/ spoting. Cyst likley recurrent bartholins cyst. Unlikley herpes. Unlikely ectopic , ruptured ovarian cyst, necrotizing infection, [place], SJS, Fourniers gangrene. Will rule out acute blood loss anemia. Offered pelvic exam however patient states that shes not having heavy bleeding and will follow with OBGN only spotting at this time. Plan- Differential Diagnosis Differential Diagnoses: The differential diagnosis associated with the presentation includes Likely normal post op bleeding/ spoting. Cycst likley recurrent bartholins cyst. Unlikley herpes. Unlikely ectopic , ruptured ovarian cyst, necrotizing infection, TN, SJS, Fourniers gangrene. Will rule out acute blood loss anemia. Admission/Observation Consideration of admission/observation: Escalation of care including admission/observation considered Lab Data MDM Lab Attestation statement: I reviewed the patient's lab results. 01/03/23 22:18 01/03/23 22:18 Labs: Lab Results 01/03/23 01/03/23 01/03/23 Range/Units 22:18 22:18 22:18 WBC 13.6 H (4.8-10.8) X10*3/uL RBC 4.68 (4.20-5.50) X10*6/uL Hgb 11.8 L (12.0-16.0) g/dl Hct 36.5 L (37.0-47.0) % MCV 78.0 L (80.0-98.0) fL MCH 25.2 L (27.0-33.0) pg MCHC 32.3 (31.0-35.0) g/dl RDW 15.4 (11.0-16.0) % Plt Count 240 (160-400) X10*3/uL MPV 9.7 (9.4-12.3) fL Immature Gran % (Auto) 0.4 (0.0-0.4) % Neut % (Auto) 69.5 (45-73) % Lymph % (Auto) 21.2 (20-40) % [place] % (Auto) 7.4 (2-11) % Eos % (Auto) 1.3 (0-4) % Baso % (Auto) 0.2 (0-2) % Lymph # (Auto) 2.9 (1.2-4.9) X10*3/uL [place] # (Auto) 1.0 (0.1-1.2) X10*3/uL Eos # (Auto) 0.2 (0.0-0.4) X10*3/uL Baso # (Auto) 0.0 (0.0-0.2) X10*3/uL Abs Immat Gran (auto) 0.05 H (0.00-0.03) X10*3/uL Absolute Neuts (auto) 9.4 H (2.0-8.3) x10*3/uL Absolute Nucleated RBC 0.000 (0.0-0.012) X10*3/uL Nucleated RBC % (auto) 0.0 (0.0-0.2) /100WBC Sodium 139 (135-145) mmol/L Potassium 3.5 (3.3-5.1) mmol/L Chloride 105 (96-108) mmol/L Carbon Dioxide 24 (22-29) mmol/L Anion Gap 14 (12-20) BUN 10 (9-16) mg/dL Creatinine 0.72 (0.5-1.4) mg/dL Estim Creat Clear Calc 102.3 Estimated GFR > 60 Random Glucose 91 (60-115) mg/dL Calcium 9.6 (8.4-10.2) mg/dL Urine Color Yellow Urine Appearance Clear Urine pH 5.5 (5.0-9.0) Ur Specific [place] 1.015 (1.005-1.025) Urine Protein Negative (Neg-Trace) mg/dL Urine Glucose (UA) Negative (Negative) mg/dL Urine Ketones Negative (Negative) mg/dL Urine Blood Negative (Negative) Urine Nitrite Negative (Negative) Ur Leukocyte Esterase Small (1+) H (Negative) Urine RBC 0-2 (0-2) /HPF Urine WBC 0-5 (0-5) /HPF Ur Squamous Epith Cells 0-2 (0-2) /HPF Urine Bacteria None Seen (None Seen) Hyaline Casts 3-5 (0-2) /LPF Urine Test (NEGATIVE) 01/03/23 Range/Units 22:18 WBC (4.8-10.8) X10*3/uL RBC (4.20-5.50) X10*6/uL Hgb (12.0-16.0) g/dl Hct (37.0-47.0) % MCV (80.0-98.0) fL MCH (27.0-33.0) pg MCHC (31.0-35.0) g/dl RDW (11.0-16.0) % Plt Count (160-400) X10*3/uL MPV (9.4-12.3) fL Immature Gran % (Auto) (0.0-0.4) % Neut % (Auto) (45-73) % Lymph % (Auto) (20-40) % [place] % (Auto) (2-11) % Eos % (Auto) (0-4) % Baso % (Auto) (0-2) % Lymph # (Auto) (1.2-4.9) X10*3/uL [place] # (Auto) (0.1-1.2) X10*3/uL Eos # (Auto) (0.0-0.4) X10*3/uL Baso # (Auto) (0.0-0.2) X10*3/uL Abs Immat Gran (auto) (0.00-0.03) X10*3/uL Absolute Neuts (auto) (2.0-8.3) x10*3/uL Absolute Nucleated RBC (0.0-0.012) X10*3/uL Nucleated RBC % (auto) (0.0-0.2) /100WBC Sodium (135-145) mmol/L Potassium (3.3-5.1) mmol/L Chloride (96-108) mmol/L Carbon Dioxide (22-29) mmol/L Anion Gap (12-20) BUN (9-16) mg/dL Creatinine (0.5-1.4) mg/dL Estim Creat Clear Calc Estimated GFR Random Glucose (60-115) mg/dL Calcium (8.4-10.2) mg/dL Urine Color Urine Appearance Urine pH (5.0-9.0) Ur Specific [place] (1.005-1.025) Urine Protein (Neg-Trace) mg/dL Urine Glucose (UA) (Negative) mg/dL Urine Ketones (Negative) mg/dL Urine Blood (Negative) Urine Nitrite (Negative) Ur Leukocyte Esterase (Negative) Urine RBC (0-2) /HPF Urine WBC (0-5) /HPF Ur Squamous Epith Cells (0-2) /HPF Urine Bacteria (None Seen) Hyaline Casts (0-2) /LPF Urine Test NEGATIVE (NEGATIVE) External Record Review External record reviewed: Inpatient record, Office record, Outpatient record, Prior outpatient labs, Prior outpatient radiology, Primary care record and Outside ED record Tests considered The following testing was considered but not selected: No abdominal pain on exam. No indication for CT abdomen and pelvis ir ultrasound pelvic transvaginal. Prescription Management I considered prescription management with: Pain Medication (Toradol) and Antibiotic (Doxycycline) Core Measures AMI core measures followed: Yes Measure exclusions: not indicated Critical Care Time Critical Care Time Critical Care Time: No Discharge Plan Discharge Clinical Impression: Bartholin cyst, Abnormal vaginal bleeding Patient Disposition: Home, Self-Care Instructions: Dysfunctional Uterine Bleeding (ED), Bartholin Cyst (ED) Additional Instructions: Take your medications as prescribed. If you were prescribed antibiotics today, it is important that you take your medication to their entirety, do not skip any doses, do not finish them early. Follow-up with your primary care provider this week. Follow up with OBGYN ALOK. Return to the emergency department with new or worsening symptoms. Such as fevers, chills, chest pain, shortness of breath, nausea, vomiting, dizziness, headache, vision changes, lethargy, bleeding through more than 2 pads an hour. In case of emergency call 911 Toradol has been sent to your pharmacy, you tolerated this well in the department. Please take this as prescribed do not take this with ibuprofen, or other NSAIDs, do not mix this with alcohol. Side effects of this medication including increased risk for bleeding and possible kidney injury. You can take Tylenol in addition to Toradol for pain control. Prescriptions: New doxycycline hyclate 100 mg capsule 100 mg PO BID 10 Days Qty: 20 0RF ketorolac 10 mg tablet 10 mg PO TID PRN (Reason: pain) 5 Days Qty: 15 0RF No Action terconazole 0.8 % cream 1 appful vaginal BEDTIME 3 Days Qty: 20 0RF nlbgsoywjn-thjnszzyasuwn-iaim [Fioricet] 50-300-40 mg capsule 1 cap PO Q8H PRN (Reason: pain) Qty: 14 0RF ibuprofen 600 mg tablet 600 mg PO Q6H PRN (Reason: pain) Qty: 20 0RF tramadol 50 mg tablet 50 mg PO BID PRN (Reason: pain) Qty: 7 0RF sulfamethoxazole-trimethoprim [Bactrim DS] 800-160 mg tablet 1 tab PO BID Qty: 14 0RF Referrals: ED Physician,Generic [Emergency Provider] - 2 days Girish Andres MD [Physician] - 2 days Stand Alone Forms: Work/School Release
[2023-01-04] MEDS: Doxycycline Monohydrate 100 MG CAPSULE PO (01:07)
[2023-01-04] MEDS: Lidocaine HCl 1 % 20 ML VIAL 5 ML SUBCUT (01:08)
--- NOTE | 2023-01-04 01:14 | PC.NURSE ---
pt a&o, denies any pain, no sob or chest pain, reviewed discharge instructions, pt verbalized understanding, bleeding controlled, no sign of distress.
== END 2023-01-04 01:15 | disposition home or self-care (01) ==
PROVIDERS: Physician Assistant; Emergency Provider Internal Medicine
DX: N75.0 Cyst of Bartholin's gland (principal); N93.9 Abnormal uterine and vaginal bleeding, unspecified
CPT/HCPCS: 10160; 36415; 80048; 81001; 81025; 85025; 87086; 99284

== ENCOUNTER 2023-01-14 00:14 | Emergency (ER) | payer MEDICAID, SELFPAY ==
[2023-01-14 00:51] VITALS: BP 129/83; PULSE 82; RESP 16; TEMP 37.2; O2SAT 98; BMI 26.1
--- NOTE | 2023-01-14 02:21 | PC.NURSE ---
Addendum entered by Angeles Jessica 01/14/23 06:05: @0421 Original Note: pt resting quietly while on phone no apparent distress boyfriend at bedside no report of bleeding at this time will CTM
--- NOTE | 2023-01-14 02:58 | PC.NURSE ---
pt c/o vaginal bleeding last three days, dizziness, pain in L and R lower quadrants of abd (closer to pelvic region), pt states she feels fatigued and weak h/o endometriosis, fibroids surg h/o r/t endometriosis and removed fibroids in November 2022 pt has pictures available that she took at home of clots, states she is having to change sanitary pads multiple times within an hr , had to leave work early d/t not being able to stay out of the restroom and having to frequently change pads aox4 no apparent distress
[2023-01-14 03:09] VITALS: BP 137/97; PULSE 79; RESP 12; TEMP 36.8; O2SAT 99
[2023-01-14 04:00] VITALS: BP 137/92; PULSE 85; RESP 18; TEMP 36.7; O2SAT 100
--- NOTE | 2023-01-14 06:02 | PC.NURSE ---
pt resting quietly, while boyfriend at bedside no apparent distress
[2023-01-14 06:17] VITALS: BP 132/84; PULSE 75; RESP 12; TEMP 36.6; O2SAT 97
--- NOTE | 2023-01-14 06:51 | ED.FEMALEGU ---
HPI - Female Genitourinary General Chief complaint: Vaginal Bleeding Stated complaint: Heavy vaginal bleed/cramps Time Seen by Provider: 01/14/23 06:27 Source: patient, family and old records reviewed Mode of arrival: ambulatory Limitations: no limitations History of Present Illness HPI Narrative: 22 yo Luxembourgish speaking female with history of endometriosis s/p recent laprascopic surgery in [place] in November, history of complex ovarian cyst, Batholin's cyst, Chlamydia, abnormal uterine bleeding who presents to the ER for evalaution of heavy vaginal bleeding and right lower abdominal pain for the last 3 days. She states she has been changing her pad every hour and passing large blood clots. She states she has irregular and heavy periods at times, the last was december 19 and it was much rn med surg than usual. She states the last 3 days has been very heavy with cramping pains. No lightheadedness, dizziness, chest pain, SOB, vaginal discharge, or fevers. MD elicited complaint: vaginal bleeding, pelvic pain and back pain Pertinent past history: other (endometriosis) Onset (ago): day(s) (3) Location of symptoms: vaginal Severity: severe Female Urogenital Radiation: R Flank (right lower back) Severity scale (1-10): 9 Quality of pain: cramping Consistency: intermittent Vaginal discharge: none Vaginal bleeding: heavy and clots Associated symptoms: denies other symptoms Treatment prior to arrival: none Sexual activity: Yes Patient : No Related Data Previous Rx's Medication Instructions Recorded ibuprofen 600 mg tablet 600 mg PO Q6H PRN pain #20 tabs 09/03/21 terconazole 0.8 % vaginal cream 1 appful vaginal BEDTIME 3 days 01/18/22 #20 grams mhtwzuhbud-bvnuyepgtfacu-anzgjvxd 1 cap PO Q8H PRN pain #14 caps 05/20/22 50 mg-300 mg-40 mg capsule (Fioricet) sulfamethoxazole 800 1 tab PO BID #14 tabs 11/10/22 mg-trimethoprim 160 mg tablet (Bactrim DS) tramadol 50 mg tablet 50 mg PO BID PRN pain #7 tabs 11/10/22 doxycycline hyclate 100 mg capsule 100 mg PO BID 10 days #20 caps 01/04/23 ketorolac 10 mg tablet 10 mg PO TID PRN pain 5 days #15 01/04/23 tabs naproxen 500 mg tablet 500 mg PO BID PRN pain #20 tabs 01/14/23 Allergies Allergy/AdvReac Type Severity Reaction Status Date / Time Penicillins [PENICILLINS] Allergy Severe ANGIOEDEMA Verified 07/23/22 12:28 Review of Systems Review of Systems: Yes all other systems are reviewed and are negative [facility] Past Medical History Medical History Asthma Complex cyst of both ovaries Complex cyst of left ovary COVID-19 Endometriosis Family History Family History Maternal Grandmother Uterine cancer Social History Social History Alcohol intake: never Smoked in Last 30 Days: No Use of substances other than those prescribed or required for medical reasons: No Advance Directives: No Advance Directives Information Provided: No Patient : No Sexual orientation: Straight/Heterosexual Gender identity: Female Physical Exam Vital Signs: Vital Signs: Last Vital Signs Temp 97.9 F 01/14/23 06:17 Pulse 71 01/14/23 08:41 Resp 13 01/14/23 08:41 BP 107/74 01/14/23 08:41 Pulse Ox 100 01/14/23 08:41 O2 Del Method Room Air 01/14/23 08:41 BMI result Body Mass Index 26.1 Appearance: Alert. Oriented X3. No acute distress. Head: normocephalic, atraumatic. Eyes: Pupils equal, round and reactive to light. ENT: Pharynx normal. No tonsillar swelling or exudate. Neck: Normal inspection. Neck supple. CVS: Normal heart rate and rhythm. Pulses normal. Respiratory: No respiratory distress. Breath sounds normal. Abdomen: Well healing laproscopic surgical scars in the periumbilical and right lower abdominal area. Soft with mild tenderness of the subprapubic area only, normal active +BS x4 Skin: Skin warm and dry. Normal skin color. Normal skin turgor. No rashes. Extremities: No lower extremity edema. No joint swelling. Neuro/psych: Oriented X 3. No motor deficit. No sensory deficit. CN II-XII intact. Normal speech and cognition. Medical Decision Making Medical Decision Making MDM Narrative: 22-year-old female with history of endometriosis presenting to the ER with heavy vaginal bleeding and pelvic pain, worse in the right for the last 3 days. She has history of cysts in the past. She had recent laparoscopic surgery for endometriosis and may involve stone. Her abdomen is soft, no peritoneal signs. Doubt any surgical complication. Her H&H is stable from a month ago. Pelvic U/S performed given hx cysts and pain was worse on the right, exam was unremarkable. patient has an appointment with Dr. Andres in 1 week. We discussed OCP/hormonal therapies which she said she has tried with little improvements. Will defer further treatment option discussions with Dr. Andres. patient is stable for discharge home. will start nsaid prn for pain. patient agrees w/ plan Differential Diagnosis Differential Diagnoses: The differential diagnosis associated with the presentation includes endometriosis, dysfunctional uterine bleeding, menorrhagia, menometrorrhagia, acute blood loss anemia, surgical complication, ovarian torsion Lab Data MDM Lab Attestation statement: I reviewed the patient's lab results. stable anemia 01/14/23 02:54 01/14/23 02:55 Labs: Lab Results 01/14/23 01/14/23 01/14/23 Range/Units 02:54 02:55 02:55 WBC 9.6 (4.8-10.8) X10*3/uL RBC 4.73 (4.20-5.50) X10*6/uL Hgb 11.6 L (12.0-16.0) g/dl Hct 36.2 L (37.0-47.0) % MCV 76.5 L (80.0-98.0) fL MCH 24.5 L (27.0-33.0) pg MCHC 32.0 (31.0-35.0) g/dl RDW 15.1 (11.0-16.0) % Plt Count 285 (160-400) X10*3/uL MPV 8.9 L (9.4-12.3) fL Immature Gran % (Auto) 0.3 (0.0-0.4) % Neut % (Auto) 53.1 (45-73) % Lymph % (Auto) 39.5 (20-40) % Dickens % (Auto) 5.0 (2-11) % Eos % (Auto) 1.7 (0-4) % Baso % (Auto) 0.4 (0-2) % Lymph # (Auto) 3.8 (1.2-4.9) X10*3/uL Dickens # (Auto) 0.5 (0.1-1.2) X10*3/uL Eos # (Auto) 0.2 (0.0-0.4) X10*3/uL Baso # (Auto) 0.0 (0.0-0.2) X10*3/uL Abs Immat Gran (auto) 0.03 (0.00-0.03) X10*3/uL Absolute Neuts (auto) 5.1 (2.0-8.3) x10*3/uL Absolute Nucleated RBC 0.000 (0.0-0.012) X10*3/uL Nucleated RBC % (auto) 0.0 (0.0-0.2) /100WBC Sodium 139 (135-145) mmol/L Potassium 3.6 (3.3-5.1) mmol/L Chloride 103 (96-108) mmol/L Carbon Dioxide 26 (22-29) mmol/L Anion Gap 14 (12-20) BUN 13 (9-16) mg/dL Creatinine 0.77 (0.5-1.4) mg/dL Estim Creat Clear Calc 95.5 Estimated GFR > 60 Random Glucose 93 (60-115) mg/dL Calcium 9.8 (8.4-10.2) mg/dL Total Bilirubin 0.2 (0.0-1.0) mg/dL AST 32 H (5-31) U/L ALT 18 (0-31) U/L Alkaline Phosphatase 67 (39-117) U/L Total Protein 8.0 (6.5-8.0) g/dL Albumin 4.5 (3.5-5.0) g/dL Beta HCG, Quant < 2 mIU/mL Urine Color Urine Appearance Urine pH (5.0-9.0) Ur Specific [place] (1.005-1.025) Urine Protein (Neg-Trace) mg/dL Urine Glucose (UA) (Negative) mg/dL Urine Ketones (Negative) mg/dL Urine Blood (Negative) Urine Nitrite (Negative) Ur Leukocyte Esterase (Negative) Urine RBC (0-2) /HPF Urine WBC (0-5) /HPF Ur Squamous Epith Cells (0-2) /HPF Urine Bacteria (None Seen) Hyaline Casts (0-2) /LPF 01/14/ Range/Units 04:04 WBC (4.8-10.8) X10*3/uL RBC (4.20-5.50) X10*6/uL Hgb (12.0-16.0) g/dl Hct (37.0-47.0) % MCV (80.0-98.0) fL MCH (27.0-33.0) pg MCHC (31.0-35.0) g/dl RDW (11.0-16.0) % Plt Count (160-400) X10*3/uL MPV (9.4-12.3) fL Immature Gran % (Auto) (0.0-0.4) % Neut % (Auto) (45-73) % Lymph % (Auto) (20-40) % Dickens % (Auto) (2-11) % Eos % (Auto) (0-4) % Baso % (Auto) (0-2) % Lymph # (Auto) (1.2-4.9) X10*3/uL Dickens # (Auto) (0.1-1.2) X10*3/uL Eos # (Auto) (0.0-0.4) X10*3/uL Baso # (Auto) (0.0-0.2) X10*3/uL Abs Immat Gran (auto) (0.00-0.03) X10*3/uL Absolute Neuts (auto) (2.0-8.3) x10*3/uL Absolute Nucleated RBC (0.0-0.012) X10*3/uL Nucleated RBC % (auto) (0.0-0.2) /100WBC Sodium (135-145) mmol/L Potassium (3.3-5.1) mmol/L Chloride (96-108) mmol/L Carbon Dioxide (22-29) mmol/L Anion Gap (12-20) BUN (9-16) mg/dL Creatinine (0.5-1.4) mg/dL Estim Creat Clear Calc Estimated GFR Random Glucose (60-115) mg/dL Calcium (8.4-10.2) mg/dL Total Bilirubin (0.0-1.0) mg/dL AST (5-31) U/L ALT (0-31) U/L Alkaline Phosphatase (39-117) U/L Total Protein (6.5-8.0) g/dL Albumin (3.5-5.0) g/dL Beta HCG, Quant mIU/mL Urine Color Yellow Urine Appearance Clear Urine pH 6.0 (5.0-9.0) Ur Specific Greenfield <= 1.005 (1.005-1.025) Urine Protein Negative (Neg-Trace) mg/dL Urine Glucose (UA) Negative (Negative) mg/dL Urine Ketones Negative (Negative) mg/dL Urine Blood Large (3+) H (Negative) Urine Nitrite Negative (Negative) Ur Leukocyte Esterase Trace H (Negative) Urine RBC 11-20 H (0-2) /HPF Urine WBC 0-5 (0-5) /HPF Ur Squamous Epith Cells 3-5 (0-2) /HPF Urine Bacteria None Seen (None Seen) Hyaline Casts 0-2 (0-2) /LPF Independent Interpretation I performed an independent interpretation of an: Ultrasound Interpretation: normal appearing ovaries, agree w/ radiology read Radiology Impression Discussion of test interpretation with radiology: I have reviewed the radiologist's reading. Radiologist Impression: ?US/US pelvic and transvaginal IMPRESSION: No significant pelvic abnormality appreciated. Independent Historian Clinical information obtained from an independent historian. History obtained from or confirmed by: Friend External Record Review External record reviewed: Office record, Outpatient record and Prior outpatient labs Prescription Management I considered prescription management with: Pain Medication Chronic Conditions Patient?s care impacted by: Other (endometriosis) Critical Care Time Critical Care Time Critical Care Time: No Discharge Plan Discharge Clinical Impression: Dysfunctional uterine bleeding, Endometriosis Patient Disposition: Home, Self-Care Instructions: Endometriosis (ED), Dysfunctional Uterine Bleeding (ED) Additional Instructions: Your lab work today showed stable blood counts Your ultrasound was normal Take the prescribed anti-inflammatory medication as needed for pain Recommend following up with your CASE LOADER OPERATOR on 01/21/23 to discuss further treatment options for your endometriosis and bleeding [employer] trabajo de laboratorio de hoy mostr? recuentos sangu?neos estables. Tu ultrasonido fue normal [place] el medicamento antiinflamatorio recetado seg?n sea necesario para el dolor. Recomendar un seguimiento con garcia obstetra/ginec?logo el 05/20/23 para analizar otras opciones de tratamiento para garcia endometriosis y sangrado Prescriptions: New naproxen 500 mg tablet 500 mg PO BID PRN (Reason: pain) Qty: 20 0RF No Action terconazole 0.8 % cream 1 appful vaginal BEDTIME 3 Days Qty: 20 0RF xbseglydxk-ivkioebpfqmhp-ngvc [Fioricet] 50-300-40 mg capsule 1 cap PO Q8H PRN (Reason: pain) Qty: 14 0RF ibuprofen 600 mg tablet 600 mg PO Q6H PRN (Reason: pain) Qty: 20 0RF tramadol 50 mg tablet 50 mg PO BID PRN (Reason: pain) Qty: 7 0RF sulfamethoxazole-trimethoprim [Bactrim DS] 800-160 mg tablet 1 tab PO BID Qty: 14 0RF doxycycline hyclate 100 mg capsule 100 mg PO BID 10 Days Qty: 20 0RF ketorolac 10 mg tablet 10 mg PO TID PRN (Reason: pain) 5 Days Qty: 15 0RF Referrals: [facility] [Primary Care Provider] - Girish Andres MD [Physician] - Print Language: Luxembourgish
[2023-01-14 08:41] VITALS: BP 107/74; PULSE 71; RESP 13; O2SAT 100
== END 2023-01-14 10:34 | disposition home or self-care (01) ==
PROVIDERS: Emergency Provider Emergency Medicine Emergency Medical Services
DX: N93.8 Other specified abnormal uterine and vaginal bleeding (principal); N80.9 Endometriosis, unspecified
CPT/HCPCS: 36415; 76830; 76856; 80053; 81001; 84702; 85025; 93975; 99284

== ENCOUNTER 2023-01-21 13:26 | Outpatient (AMB) | payer MEDICAID, SELFPAY ==
--- NOTE | 2023-01-21 13:32 | MHC.OFFVIS ---
Intake Vital Signs 01/21/23 13:34 Height 5 ft 1 in Weight 143 lb BMI 27.0 BP 106/62 Intake Visit Reasons: Annual Paste Up Worker Required: Yes Paste Up Worker Language: Hydroelectric Plant Electrician Name: Marissa AVITIA Information Interpreted: non-clinical & clinical Switch Maker: Switch Maker Present (Marissa) Allergies Penicillins [PENICILLINS] Allergy (Severe, Verified 01/21/23 13:36) ANGIOEDEMA Is last menstrual period known: Yes Last menstrual period: 01/11/23 Post menopausal: No HPI HPI Comments History of Present Illness Details Presenting for annual exam. The patient is complaining of left breast lump and tenderness 2 months. Last pelvic ultrasound done on 01/14/2023 was unremarkable with no evidence of any abnormalities Last Pap/HPV was in 10/02 was negative [facility] Medical History Asthma Complex cyst of both ovaries Complex cyst of left ovary COVID-19 Endometriosis Surgical History H/O laparoscopy Family History Maternal Grandmother Uterine cancer Maternal Aunt Cancer Social History Alcohol intake: never Sexual orientation: Straight/Heterosexual Gender identity: Female Female Reproductive History Menstrual Age of Menarche: 7 Duration of menses: 8-10 days Date of last menstrual period: 01/11/23 control method: none Total pregnancies: 1 Ectopics: 1 Date of last pap smear: 01/18/22 (negative) History of abnormal pap smear: Yes (+HPV 2020) Review of Systems Const All systems reviewed & are unremarkable except as noted in HPI and below Card Reports as per HPI Resp Reports as per HPI GI Reports as per HPI and Reports no additional complaints Reports as per HPI Physical Exam Vital Signs: Last Vital Signs BP 106/62 01/21/23 13:34 BMI result Body Mass Index 27.0 Const General: cooperative, healthy appearing and comfortable Chest Chest palpation & inspection: normal inspection of the chest and normal palpation of entire chest wall Breast/axilla inspection: normal inspection of the breasts and normal inspection of the axillae Breast/axilla palpation: normal palpation of the axillae, no axillary lymphadenopathy and abnormal palpation of the breast (Left breast lump 7 cm from the nipple at 05:00 o'clock, right breast wnl) Resp Effort & Inspection: normal respiratory effort Auscultation: clear to auscultation bilaterally Percussion: percussion normal Cardio Palpation: normal PMI Rate: regular rate Rhythm: regular rhythm Heart sounds: no murmurs and no rubs Peripheral pulses: Peripheral pulses 2+ throughout GI Inspection: Yes normal to inspection Palpation (GI): Soft to palpation, nontender, no guarding, not rigid and No hepatosplenomegaly present Percussion: Yes normal to percussion Auscultation: normal bowel sounds Rectal Exam - Female: deferred General: Yes bladder normal to palpation External Female Exam: No lesion Speculum Exam - Vagina: normal appearance of the vagina, normal palpation, normal vaginal discharge and not erythematous Speculum Exam - Cervix: normal appearance of the cervix and normal palpation Bimanual exam- vagina & uterus: normal bimanual exam, normal palpation, uterine size normal, bladder normal to palpation, consistency normal and normal palpation Bimanual Exam- Adnexa, other: normal adnexae, no masses and no tenderness Assessment & Plan Assessment & Plan (1) Well woman exam: Code(s): Z01.419 - Encounter for gynecological examination (general) (routine) without abnormal findings Plan: Pap smear not indicated this year. Counseled the patient about the recommended dietary allowance of 1000 mg of Calcium & 600 IU of vitamin D. The patient was instructed to perform monthly self-breast exams , to call for any changes in menstrual patterns and to schedule an annual exam in a year; all questions answered and the patient verbalized understanding. (2) Breast lump on left side at 5 o'clock position: Comment: 7 cm from the nipple Code(s): N63.23 - Unspecified lump in the left breast, lower outer quadrant Plan: Discussed with the patient the finding on Breast exam (breast lump) .The differential diagnosis includes but not limited to lump/cyst/pre cancer/cancer or dense breast tissue. The work up includes breast US and referred the patient for surgical breast consult. Orders: Orders US breast LT complete Today N63.23 - Unspecified lump in the left breast, lower outer quadrant Referrals General Surgery Referral N63.23 - Unspecified lump in the left breast, lower outer quadrant Coding Level of Care Code Est Pt Prev Care 18-39y(60930) Diagnoses Well woman exam Z01.419 Breast lump on left side at 5 o'clock position N63.23
[2023-01-21 13:34] VITALS: BP 106/62; BMI 27.0
== END 2023-01-21 16:14 | disposition home or self-care (01) ==
LOC: HO.HWS 13:26
PROVIDERS: Visit Provider Obstetrics & Gynecology
DX: Z01.419 Encounter for gynecological examination (general) (routine) without abnormal findings (principal); N63.23 Unspecified lump in the left breast, lower outer quadrant
CPT/HCPCS: 99395

== ENCOUNTER → 2023-01-21 13:26 | Outpatient (BNVA) | payer MEDICAID, SELFPAY | PROVIDERS: Visit Provider Obstetrics & Gynecology ==

== ENCOUNTER 2023-01-21 21:03 | Outpatient (REF) | payer MEDICAID, SELFPAY ==
[2023-01-22 11:53] LABS: CT PCR NOT DETECTED (Not Detect.); NG PCR NOT DETECTED (Not Detect.)
== END 2023-01-21 21:04 | disposition home or self-care (01) ==
LOC: HO.LNP 21:03
PROVIDERS: Visit Provider Obstetrics & Gynecology
DX: Z11.3 Encounter for screening for infections with a predominantly sexual mode of transmission (principal)
CPT/HCPCS: 0353U

== ENCOUNTER 2023-02-06 10:07 | Outpatient (AMB) | payer MEDICAID, SELFPAY ==
--- NOTE | 2023-02-06 10:09 | MHC.OFFVIS ---
Intake Vital Signs 02/06/23 10:19 Height 5 ft 1 in Weight 140 lb 8 oz BMI 26.5 BP 114/74 Blood Pressure Location Lt brachial Position Sitting Pulse 78 Intake Visit Reasons: Lump Lt breast Intake Note: Patient is seen in office for evaluation and treatment of a left breast lump. Patient c/o: onset 2 months, had concerns in the past and was told is a cyst, denies discharge, redness, swelling, or other concerns of the breast Bilingual Customer Service Required: Yes Bilingual Customer Service Language: Computer Consultant Name: Antonia AVITIA Information Interpreted: non-clinical & clinical Interactive Art Director: Interactive Art Director Present Accompanied by: Other Relationship Allergies Penicillins [PENICILLINS] Allergy (Severe, Verified 02/06/23 10:17) ANGIOEDEMA HPI HPI Comments History of Present Illness Details 22-year-old female patient presenting with a 2 month history of a painful lump in the left breast. This was confirmed on recent physical examination by Dr. Andres located in the 5 o'clock position of the left breast. She denies a previous history of breast problems or breast surgery. Her family history is negative for breast cancer. She has a previous history of endometriosis. She is following an ectopic . She denies control meds. An order for an ultrasound of the left breast is requested by Dr. Andres. [facility] Medical History Asthma Complex cyst of both ovaries Complex cyst of left ovary COVID-19 Endometriosis Surgical History H/O laparoscopy (12/06/22) Family History Maternal Grandmother Uterine cancer Maternal Aunt Cancer Social History Alcohol intake: never Sexual orientation: Straight/Heterosexual Gender identity: Female Female Reproductive History Menstrual Age of Menarche: 7 Date of last menstrual period: 12/17/22 Total pregnancies: 1 Number of Living Children: 0 Ab spontaneous: 1 Review of Systems Const All systems reviewed & are unremarkable except as noted in HPI and below Denies chills, Denies fever(s), Denies headache(s), Denies poor appetite and Denies weakness ENT Denies headache(s) Card Denies chest pain, Denies irregular heart rhythm, Denies palpitations and Denies dyspnea Resp Denies cough, Denies excessive phlegm production and Denies dyspnea GI Denies abdominal pain, Denies bloating, Denies change in bowel habits, Denies constipation, Denies heartburn, Denies diarrhea, Denies nausea and Denies vomiting Denies urinary frequency Musc Denies back pain, Denies muscle weakness and Denies numbness Skin/Breast Denies changing lesions and Denies unusual bruising Neuro Denies headache(s), Denies numbness, Denies paresthesias and Denies weakness Psych Denies anxiety and Denies depression Endo Denies palpitations Yosvany/Lymph Denies lymphadenopathy Physical Exam Const General: cooperative and no acute distress Nutritional Appearance: well nourished Orientation/consciousness: patient oriented x3 Limitations: no limitations HEENT Head: Yes normocephalic and Yes atraumatic Ears: hearing grossly normal bilaterally Chest Other: Left breast: No skin change, no nipple retraction, no nipple discharge, palpable smooth round mobile density noted in the 5 o'clock position at the lateral portion of the breast, suggestive of a cyst, no enlarged lymph nodes. Right breast: No skin change, no nipple retraction, no nipple discharge, no palpable mass, no enlarged lymph nodes Resp Effort & Inspection: normal respiratory effort, no audible wheezes, no cough and no respiratory distress Cardio Jugular venous distension: no JVD GI Inspection: Yes normal to inspection Skin Other: Warm, dry, no rash Neuro General: patient oriented x3 Extrem General: Yes no clubbing, cyanosis or edema Assessment & Plan Assessment & Plan (1) Breast lump on left side at 5 o'clock position: Comment: 7 cm from the nipple Code(s): N63.23 - Unspecified lump in the left breast, lower outer quadrant Plan 22-year-old female patient presenting with a palpable mass in the left breast at the lower outer quadrant. Examination is consistent with a recurrent breast cyst. She reports a previous history of breast cysts and will be scheduled for an ultrasound of the breast to further evaluate. I have asked her to return following the study to review the results and discuss treatment options. She expressed understanding and agrees with the plan. Coding Level of Care Code New Pt Level 4 (46864) Diagnoses Breast lump on left side at 5 o'clock position N63.23
[2023-02-06 10:19] VITALS: BP 114/74; PULSE 78; BMI 26.5
== END 2023-02-06 10:34 | disposition home or self-care (01) ==
PROVIDERS: PCP Registered Nurse; Referring Provider Obstetrics & Gynecology; Visit Provider Surgery
DX: N63.23 Unspecified lump in the left breast, lower outer quadrant (principal)
CPT/HCPCS: 99204

== ENCOUNTER → 2023-02-06 10:07 | Outpatient (BNVA) | payer MEDICAID, SELFPAY | PROVIDERS: PCP Registered Nurse; Referring Provider Obstetrics & Gynecology; Visit Provider Surgery | DX: N63.23 Unspecified lump in the left breast, lower outer quadrant (principal) | CPT/HCPCS: 99202 ==

== ENCOUNTER 2023-02-27 13:51 | Outpatient (REF) | payer MEDICAID, SELFPAY ==
--- NOTE | ~2023-02-27 | US_ITS ---
EXAMINATION: US DIAGNOSTIC ULTRASOUND BREAST, LEFT CLINICAL INFORMATION: 22-year-old female complaining of palpable area in the left breast at the 3:00 axis which is also painful, approximately 6-7 cm from the nipple.. COMPARISON: None available. TECHNIQUE: Ultrasound of the left breast is performed in the area as indicated by the patient with real-time lind scale imaging and color Doppler. FINDINGS: There is no focal suspicious finding. There is no solid mass, cystic abnormality, abnormal shadowing, duct ectasia, or edema in the soft tissue planes. There is a ridge of dense fibroglandular tissue present correlating with the palpable focus of concern within the 3:00 to 4:00 axis of the left breast. Results were discussed with the patient at time of visit. US/US breast LT limited mamm only IMPRESSION: No ultrasonographic correlate to the focus of palpable concern left breast. Recommend clinical management. ASSESSMENT: BI-RADS 1: Negative RECOMMENDATION: 1. Patient should be managed based on the clinical impression. Decision to proceed with biopsy should be based on clinical grounds and degree of clinical concern. This patient's information was entered into a reminder system with a target due date for their next mammogram.
== END 2023-02-27 13:52 | disposition home or self-care (01) ==
LOC: HO.MAMMO 13:51
PROVIDERS: PCP Registered Nurse; Visit Provider Obstetrics & Gynecology
DX: N63.23 Unspecified lump in the left breast, lower outer quadrant (principal)
CPT/HCPCS: 76642

== ENCOUNTER → 2023-02-27 14:00 | Outpatient (BNV) | payer MEDICAID, SELFPAY | PROVIDERS: PCP Registered Nurse; Visit Provider Radiology Diagnostic Radiology | DX: N63.21 Unspecified lump in the left breast, upper outer quadrant (principal) | CPT/HCPCS: 76642 ==

== ENCOUNTER 2023-04-15 14:02 | Outpatient (REF) | payer MEDICAID, SELFPAY | END 2023-04-15 14:03 | disposition home or self-care (01) | LOC: HO.LNP 14:02 | PROVIDERS: PCP Registered Nurse; Visit Provider Obstetrics & Gynecology | DX: N75.1 Abscess of Bartholin's gland (principal) | CPT/HCPCS: 56420; 87070; 87205; 99212 ==

== ENCOUNTER 2023-04-15 14:02 | Outpatient (AMB) | payer MEDICAID, SELFPAY ==
[2023-04-15 14:14] VITALS: BP 112/64; BMI 25.8
--- NOTE | 2023-04-15 14:14 | A.OFFVIS_ITS ---
Intake Vital Signs 04/15/23 14:14 Height 5 ft 1 in Weight 136 lb 10.986 oz BMI 25.8 BP 112/64 Intake Visit Reasons: Cyst Environmental Property Assessor Required: Yes Environmental Property Assessor Language: Engineering And Scientific Programmer Name: Marissa AVITIA Information Interpreted: non-clinical & clinical Replenishment Merchandising Associate: Replenishment Merchandising Associate Present (Marissa Jarvis RMA) Accompanied by: Self / Same As Patient Allergies Penicillins [PENICILLINS] Allergy (Severe, Verified 04/15/23 14:15) ANGIOEDEMA Is last menstrual period known: Yes Last menstrual period: 04/07/23 HPI HPI Comments History of Present Illness Details Presenting complaining of right pain for vulvar swelling of few days duration. No fever or chills PFSH Medical History COVID-19 Endometriosis Complex cyst of left ovary Complex cyst of both ovaries Asthma Surgical History H/O laparoscopy (12/06/22) Family History Maternal Grandmother Uterine cancer Maternal Aunt Cancer Social History Alcohol intake: never Sexual orientation: Straight/Heterosexual Gender identity: Female Female Reproductive History Menstrual Age of Menarche: 7 Duration of menses: 8-10 days Date of last menstrual period: 04/07/23 Review of Systems Const All systems reviewed & are unremarkable except as noted in HPI and below Reports as per HPI and Reports no additional complaints GI Reports no additional complaints Reports no additional complaints Physical Exam Vital Signs: Last Vital Signs BP 112/64 04/15/23 14:14 BMI result Body Mass Index 25.8 General: Yes no CVA tenderness External Female Exam: normal appearance of the urethra and other (Right Bartholin's gland cyst) Speculum Exam - Vagina: normal appearance of the vagina, normal palpation, no lesions and no masses Speculum Exam - Cervix: normal appearance of the cervix, normal palpation, no lesions, no masses and nontender Bimanual exam- vagina & uterus: normal bimanual exam, normal palpation, uterine size normal, normal palpation, uterine shape normal, No Cervical tenderness present and non-tender Bimanual Exam- Adnexa, other: normal adnexae Back/Spine/Pelvis Back: no CVA tenderness Office Procedures Incision/Drainage CARPENTER SHIP Incision/Drainage CARPENTER SHIP Details: Bartholin I & D with Word Catheter insertion Indication: Right labial Bartholin's gland cyst. Prep: the skin was cleaned with Betadine. Anesthesia: 3 cc of Xylocaine was used for anesthesia Guidance: palpation was used for guidance. Technique: a nicking incision was made in the skin, using an 11-blade to incise the cyst, and word catheter was advanced into the cyst cavity . Yield: 3 cc came out. The fluid was blood-tinged. Result: This substantially decompressed the swelling. Dressing: a clean dressing was placed. Tolerance: The patient tolerated the procedure well. Disposition: The patient was sent home in stable condition. Before the procedure was started d/w patient the procedure, alternatives (do nothing), & all the risks associated with the procedure (bleeding , infection, scar tissue development, chronic dyspareunia, injury to bladder, vessels, bowels, possible need for transfusion with all its risks) then patient signed the consent and At the end the patient was instructed to call if temp>100.4, abdominal pain, perineal pain, n/v and to schedule a 4 week follow-up appointment for word catheter removed 66603-I&D of Bartholin gland abscess All charges added?: Procedure code (CPT) selection complete Assessment & Plan Assessment & Plan (1) Abscess of Bartholin's gland: Code(s): N75.1 - Abscess of Bartholin's gland Plan: Discussed with the patient the finding on pelvic exam showing a right Bartholin's gland abscess, recommended I&D, I&D was word catheter insertion done, see procedure note. Culture taken. Instructions given the patient to call in case of perineal pain, fever above 100.4, heavy vaginal bleeding, and follow-up in 4 weeks for word catheter removal Orders: Orders Incision & Drainage CARPENTER SHIP Today N75.1 - Abscess of Bartholin's gland Coding Level of Care Code Est Pt Level 3 (55886) Procedure Only Diagnoses Abscess of Bartholin's gland N75.1 CPT Codes Incision/Drainage CARPENTER SHIP - IDGYN2: 60653-T&D of Bartholin gland abscess ([id number])
== END 2023-04-15 15:05 | disposition home or self-care (01) ==
PROVIDERS: PCP Registered Nurse; Visit Provider Obstetrics & Gynecology
DX: N75.1 Abscess of Bartholin's gland (principal)
CPT/HCPCS: 56420; 99213

== ENCOUNTER 2023-04-25 13:20 | Outpatient (AMB) | payer MEDICAID, SELFPAY ==
--- NOTE | 2023-04-25 13:26 | MHC.OFFVIS ---
Intake Vital Signs 04/25/23 13:27 Height 5 ft 1 in Weight 136 lb 10.986 oz BMI 25.8 BP 110/68 Intake Visit Reasons: Bartholin cyst Intake Note: The patient agreed to use of a medical technologist clinical during this encounter. Scribed for DELISA Hopper by Kylie Felix medical technologist clinical, on 04/25/2023 at 1:38 pm EST. Drawing Operator Required: Yes Drawing Operator Language: Dining Car Hop Name: Marissa AVITIA Information Interpreted: non-clinical & clinical Brake Linings Coater: Brake Linings Coater Present (Marissa Matheus AVITIA) Accompanied by: Self / Same As Patient Allergies Penicillins [PENICILLINS] Allergy (Severe, Verified 04/25/23 13:31) ANGIOEDEMA HPI HPI Comments History of Present Illness Details She is here for a follow up on her Bartholin's cyst with complaints of pain/discomfort with Word catheter especially when she sits. PFSH Medical History COVID-19 Endometriosis Complex cyst of left ovary Complex cyst of both ovaries Asthma Surgical History H/O laparoscopy (12/06/22) Family History Maternal Grandmother Uterine cancer Maternal Aunt Cancer Social History Alcohol intake: never Sexual orientation: Straight/Heterosexual Gender identity: Female Female Reproductive History Menstrual Age of Menarche: 7 Physical Exam Vital Signs: Last Vital Signs BP 110/68 04/25/23 13:27 BMI result Body Mass Index 25.8 Const General: cooperative, healthy appearing, comfortable, no acute distress, well developed, alert and awake Other: healing well; no infection Catheter was cut, drained and removed the catheter intact. External Female Exam: normal external appearance and normal appearance of the urethra Assessment & Plan Assessment & Plan (1) Bartholin cyst: Code(s): N75.0 - Cyst of Bartholin's gland Plan: Discussed: Advised to clean vaginal area carefully and thoroughly. All of her questions and concerns were addressed to the best of my ability and shared decision making. She is agreeable to plan of care. follow up prn/annual exam. (2) Cyst of right Bartholin's gland: Comment: Resolved Code(s): N75.0 - Cyst of Bartholin's gland Coding Level of Care Code Est Pt Level 3 (55109) Diagnoses Bartholin cyst N75.0 Cyst of right Bartholin's gland N75.0
[2023-04-25 13:27] VITALS: BP 110/68; BMI 25.8
== END 2023-04-25 14:32 | disposition home or self-care (01) ==
PROVIDERS: PCP Registered Nurse; Visit Provider Advanced Practice Midwife
DX: N75.0 Cyst of Bartholin's gland (principal)
CPT/HCPCS: 99024

== ENCOUNTER → 2023-04-25 13:20 | Outpatient (BNVA) | payer MEDICAID, SELFPAY | PROVIDERS: PCP Registered Nurse; Visit Provider Advanced Practice Midwife | DX: N75.0 Cyst of Bartholin's gland (principal) | CPT/HCPCS: 99212 ==

== ENCOUNTER 2023-04-28 15:05 | Outpatient (REF) | payer MEDICAID, SELFPAY ==
[2023-04-28 16:54] LABS: Alanine Aminotransferase 14 U/L (0-31); Albumin Level 4.2 g/dL (3.5-5.0); Alkaline Phosphatase 62 U/L (39-117); Anion Gap 13 (12-20); Aspartate Amino Transferase 16 U/L (5-31); Bilirubin Total 0.4 mg/dL (0.0-1.0); Blood Urea Nitrogen 11 mg/dL (9-16); Calcium 9.5 mg/dL (8.4-10.2); Carbon Dioxide 25 mmol/L (22-29); Chloride 105 mmol/L (96-108); Estimated Glomerular Filt Rate > 60; Glucose Random 81 mg/dL (60-115); Potassium 4.3 mmol/L (3.3-5.1); Sodium 139 mmol/L (135-145); Total Protein 7.7 g/dL (6.5-8.0)
[2023-04-28 17:09] LABS: TSH reflex Free T4 1.74 uIU/mL (0.32-4.0)
== END 2023-04-28 15:06 | disposition home or self-care (01) ==
LOC: HO.HHCL 15:05
PROVIDERS: Visit Provider Emergency Medicine
DX: R11.0 Nausea (principal)
CPT/HCPCS: 36415; 80053; 84443

== ENCOUNTER 2023-05-14 15:03 | Outpatient (REF) | payer MEDICAID, SELFPAY ==
--- NOTE | ~2023-05-14 | US_ITS ---
EXAMINATION: US PELVIS COMPLETE US PELVIS ENDOVAGINAL CLINICAL INFORMATION: Endometriosis ovarian cyst COMPARISON: Abdominal pelvis from 01/14/2023 TECHNIQUE: Transabdominal and transvaginal images of the pelvis were obtained. FINDINGS: UTERUS: Anteverted. Normal size and contour, measuring 8.2 x 3.5 x 4.8 cm (cervix to fundus x AP x transverse). Uniform, homogeneous endometrium measures 0.7 cm in width. RIGHT OVARY: Normal size and echogenicity measures 3.4 x 1.9 x 1.8 cm, volume 6.0 mL. LEFT OVARY: Normal size and echogenicity measures 4.2 x 2.2 x 3.1 cm, volume 15.0 mL. A left simple appearing possible paraovarian cyst is noted measuring 1.6 x 1.2 x 1.5 cm. FREE FLUID: No pelvic free fluid. US/US pelvic and transvaginal IMPRESSION: Left ovarian simple appearing possible paraovarian cyst measuring up to 1.6 cm.
== END 2023-05-14 15:04 | disposition home or self-care (01) ==
LOC: HO.US 15:03
PROVIDERS: PCP Registered Nurse; Visit Provider Emergency Medicine
DX: N80.109 Endometriosis of ovary, unspecified side, unspecified depth (principal)
CPT/HCPCS: 76830; 76856

== ENCOUNTER 2023-05-16 10:17 | Outpatient (REF) | payer MEDICAID, SELFPAY ==
[2023-05-16 14:04] LABS: TSH reflex Free T4 2.21 uIU/mL (0.32-4.0)
[2023-05-18 18:18] LABS: TS Negative Control Passed; TS Panel A 0; TS Panel B 0; TS Positive Control Passed; TSpotTB Negative (Negative)
== END 2023-05-16 10:18 | disposition home or self-care (01) ==
LOC: HO.HHCL 10:17
PROVIDERS: Visit Provider Internal Medicine
DX: Z00.00 Encounter for general adult medical examination without abnormal findings (principal); Z11.1 Encounter for screening for respiratory tuberculosis; N80.9 Endometriosis, unspecified
CPT/HCPCS: 36415; 84443; 86481; 86735; 86762; 86765

== ENCOUNTER 2023-05-19 14:00 | Outpatient (AMB) | payer MEDICAID, SELFPAY ==
--- NOTE | 2023-05-19 14:07 | A.OFFVIS_ITS ---
Intake Vital Signs 05/19/23 14:08 Height 5 ft 1 in Weight 136 lb 10.986 oz BMI 25.8 BP 114/68 Intake Visit Reasons: Breast US follow up/DO NOT RS Correctional Agency Director Required: Yes Correctional Agency Director Language: Plant Nursery Worker Name: Marissa AVITIA Information Interpreted: non-clinical & clinical Accompanied by: Self / Same As Patient Allergies Penicillins [PENICILLINS] Allergy (Severe, Verified 05/19/23 14:08) ANGIOEDEMA Is last menstrual period known: Yes Last menstrual period: 05/05/23 HPI HPI Comments History of Present Illness Details Presenting for follow-up breast ultrasound for a palpable left breast lump. Breast ultrasound showed the following: There is no focal suspicious finding. There is no solid mass, cystic abnormality, abnormal shadowing, duct ectasia, or edema in the soft tissue planes. There is a ridge of dense fibroglandular tissue present correlating with the palpable focus of concern within the 3:00 to 4:00 axis of the left breast. Results were discussed with the patient at time of visit. The patient was referred to general surgery, was seen by a Dr. Clay who's impression is consistent with recurrent left breast cyst and as the patient to come back for follow-up to discuss the results of breast ultrasound and options of treatment. Since then the patient is doing well with no more left breast palpable lump or pain P PFSH Medical History COVID-19 Endometriosis Complex cyst of left ovary Complex cyst of both ovaries Asthma Surgical History H/O laparoscopy (12/06/22) Family History Maternal Grandmother Uterine cancer Maternal Aunt Cancer Social History Alcohol intake: never Sexual orientation: Straight/Heterosexual Gender identity: Female Female Reproductive History Menstrual Age of Menarche: 7 Date of last menstrual period: 05/05/23 Physical Exam Chest Chest palpation & inspection: normal inspection of the chest Breast/axilla inspection: normal inspection of the breasts Breast/axilla palpation: normal palpation of the breasts Assessment & Plan Assessment & Plan (1) Breast lump on left side at 5 o'clock position: Comment: Resolved Code(s): N63.23 - Unspecified lump in the left breast, lower outer quadrant Plan: Discussed with patient results breast ultrasound, negative and normal breast exam. Instructions given the patient to call in case of recurrence of pain and or palpable lump refer to general surgery. All questions answered, the patient verbalized understanding Coding Level of Care Code Est Pt Level 3 (12826) Diagnoses Breast lump on left side at 5 o'clock position N63.23
[2023-05-19 14:08] VITALS: BP 114/68; BMI 25.8
== END 2023-05-19 15:13 | disposition home or self-care (01) ==
LOC: HO.HWS 14:00
PROVIDERS: PCP Registered Nurse; Visit Provider Obstetrics & Gynecology
DX: N63.23 Unspecified lump in the left breast, lower outer quadrant (principal)
CPT/HCPCS: 99213

== ENCOUNTER → 2023-05-19 14:00 | Outpatient (BNVA) | payer MEDICAID, SELFPAY | PROVIDERS: PCP Registered Nurse; Visit Provider Obstetrics & Gynecology | DX: N63.23 Unspecified lump in the left breast, lower outer quadrant (principal) | CPT/HCPCS: 99212 ==

== ENCOUNTER 2023-08-05 12:08 | Outpatient (REF) | payer MEDICAID, SELFPAY ==
[2023-08-05 13:34] LABS: MANUAL DIFF FLAG NO
[2023-08-05 13:41] LABS: Basophils Percent Auto 0.4 % (0-2); Eosinophils Absolute Auto 0.1 X10*3/uL (0.0-0.4); Eosinophils Percent Auto 1.7 % (0-4); Hematocrit 38.6 % (37.0-47.0); Hemoglobin 12.2 g/dl (12.0-16.0); Imm Gran Abs Auto 0.02 X10*3/uL (0.00-0.03); Imm Gran Pct Auto 0.3 % (0.0-0.4); Lymphocytes Absolute Auto 2.6 X10*3/uL (1.2-4.9); Lymphocytes Percent Auto 36.4 % (20-40); Mean Corpuscular HGB Conc 31.6 g/dl (31.0-35.0); Mean Corpuscular Hemoglobin 25.4 pg (27.0-33.0); Mean Corpuscular Volume 80.4 fL (80.0-98.0); Mean Platelet Volume 9.7 fL (9.4-12.3); Monocytes Absolute Auto 0.5 X10*3/uL (0.1-1.2); Monocytes Percent Auto 7.4 % (2-11); Neutrophils Absolute Auto 3.8 x10*3/uL (2.0-8.3); Neutrophils Percent Auto 53.8 % (45-73); Platelet Count 291 X10*3/uL (160-400); Red Cell Distribution Width 14.6 % (11.0-16.0)
[2023-08-05 14:24] LABS: Erythrocyte Sedimentation Rate 23 MM/HR (0-20)
[2023-08-05 14:41] LABS: Anion Gap 13 (12-20); Blood Urea Nitrogen 10 mg/dL (9-16); Calcium 9.5 mg/dL (8.4-10.2); Carbon Dioxide 27 mmol/L (22-29); Chloride 102 mmol/L (96-108); Estimated Glomerular Filt Rate > 60; Glucose Random 76 mg/dL (60-115); Potassium 4.1 mmol/L (3.3-5.1); Sodium 138 mmol/L (135-145)
== END 2023-08-05 12:09 | disposition home or self-care (01) ==
LOC: HO.HHCL 12:08
PROVIDERS: Visit Provider Internal Medicine
DX: G93.31 Postviral fatigue syndrome (principal)
CPT/HCPCS: 36415; 80048; 85025; 85652

== ENCOUNTER 2023-09-19 14:48 | Outpatient (REF) | payer MEDICAID, SELFPAY ==
[2023-09-19 16:36] LABS: MANUAL DIFF FLAG NO
[2023-09-19 16:58] LABS: Basophils Percent Auto 0.3 % (0-2); Eosinophils Absolute Auto 0.1 X10*3/uL (0.0-0.4); Eosinophils Percent Auto 1.7 % (0-4); Hematocrit 39.7 % (37.0-47.0); Hemoglobin 12.7 g/dl (12.0-16.0); Imm Gran Abs Auto 0.01 X10*3/uL (0.00-0.03); Imm Gran Pct Auto 0.2 % (0.0-0.4); Lymphocytes Absolute Auto 2.6 X10*3/uL (1.2-4.9); Lymphocytes Percent Auto 38.4 % (20-40); Mean Corpuscular Hemoglobin 25.8 pg (27.0-33.0); Mean Corpuscular Volume 80.5 fL (80.0-98.0); Mean Platelet Volume 9.9 fL (9.4-12.3); Monocytes Absolute Auto 0.5 X10*3/uL (0.1-1.2); Monocytes Percent Auto 6.8 % (2-11); Neutrophils Absolute Auto 3.5 x10*3/uL (2.0-8.3); Neutrophils Percent Auto 52.6 % (45-73); Platelet Count 266 X10*3/uL (160-400); Red Blood Count 4.93 X10*6/uL (4.20-5.50); Red Cell Distribution Width 14.5 % (11.0-16.0); White Blood Count 6.6 X10*3/uL (4.8-10.8)
[2023-09-19 17:15] LABS: Iron 36 mcg/dL (30-160); Percent Iron Saturation 12 % (15-50); Total Iron Binding Capacity 302 mcg/dL (228-428); Unsaturated Iron Binding 266 ug/dL
[2023-09-19 17:32] LABS: Ferritin 17 ng/mL (10-122)
== END 2023-09-19 14:49 | disposition home or self-care (01) ==
LOC: HO.HHCL 14:48
PROVIDERS: Visit Provider Nurse Practitioner
DX: N80.9 Endometriosis, unspecified (principal)
CPT/HCPCS: 36415; 82728; 83540; 85025

== ENCOUNTER 2024-02-18 14:16 | Outpatient (REF) | payer MEDICAID, SELFPAY ==
[2024-02-18 16:03] LABS: MANUAL DIFF FLAG NO
[2024-02-18 16:16] LABS: Basophils Percent Auto 0.6 % (0-2); Eosinophils Absolute Auto 0.1 X10*3/uL (0.0-0.4); Eosinophils Percent Auto 1.9 % (0-4); Hematocrit 37.5 % (37.0-47.0); Hemoglobin 12.2 g/dl (12.0-16.0); Imm Gran Abs Auto 0.02 X10*3/uL (0.00-0.03); Imm Gran Pct Auto 0.3 % (0.0-0.4); Lymphocytes Absolute Auto 2.3 X10*3/uL (1.2-4.9); Lymphocytes Percent Auto 31.9 % (20-40); Mean Corpuscular HGB Conc 32.5 g/dl (31.0-35.0); Mean Corpuscular Hemoglobin 25.6 pg (27.0-33.0); Mean Corpuscular Volume 78.6 fL (80.0-98.0); Mean Platelet Volume 9.7 fL (9.4-12.3); Monocytes Absolute Auto 0.5 X10*3/uL (0.1-1.2); Monocytes Percent Auto 7.2 % (2-11); Neutrophils Absolute Auto 4.2 x10*3/uL (2.0-8.3); Neutrophils Percent Auto 58.1 % (45-73); Platelet Count 265 X10*3/uL (160-400); Red Blood Count 4.77 X10*6/uL (4.20-5.50); Red Cell Distribution Width 15.8 % (11.0-16.0); White Blood Count 7.3 X10*3/uL (4.8-10.8)
[2024-02-18 16:43] LABS: HCG Quantitative 183 mIU/mL
== END 2024-02-18 14:17 | disposition home or self-care (01) ==
LOC: HO.HHCL 14:16
PROVIDERS: Visit Provider Emergency Medicine
DX: Z34.91 Encounter for supervision of normal pregnancy, unspecified, first trimester (principal)
CPT/HCPCS: 36415; 84702; 85025

== ENCOUNTER 2024-03-19 20:20 | Emergency (ER) | payer MEDICAID, SELFPAY ==
--- NOTE | ~2024-03-19 | US_ITS ---
EXAMINATION: US OBSTETRICAL ULTRASOUND CLINICAL INFORMATION: Vaginal bleeding. Positive . LMP 01/22/2024. COMPARISON: None available. LMP: 01/22/2024. Gestational age by maternal dates is 8 weeks 1 day. Estimated date of delivery by maternal dates is 10/28/2024. TECHNIQUE: Transabdominal ultrasound was performed. FINDINGS: There is a single intrauterine gestational sac with visible yolk sac, embryo/fetus, and cardiac activity. There is no significant subchorionic hemorrhage or hematoma. HR: 174 beats per minute. CRL (crown rump length): 1.6 cm (8 weeks 1 day +/- 4 days). MALIK (estimated date of delivery): 10/28/2024 +/- 4 days. MATERNAL ADNEXA: The right maternal ovary measures 2.7 x 1.6 x 1.8 cm. The left maternal ovary measures 2.9 x 1.9 x 2.2 cm. There is an exophytic cyst measuring 1.1 x 0.9 x 1.1 cm. There is no significant maternal adnexal mass. No maternal pelvic ascites. US/US OB <= 14 weeks fetus IMPRESSION: 1. Single intrauterine gestation with ultrasound gestational age of 8 weeks 1 day +/- 4 days. 2. Estimated date of delivery is 10/28/2024 +/- 4 days. 3. No maternal adnexal mass or pelvic ascites. Electronically signed by: Eddie Clark DO 03/19/2024 09:55 PM EDT
[2024-03-19 20:27] VITALS: BP 130/80; PULSE 92; RESP 17; TEMP 36.6; O2SAT 100; BMI 27.4
--- NOTE | 2024-03-19 20:31 | ED_ITS ---
HPI - General Adult General Chief complaint: Vaginal Bleeding Stated complaint: vag bleeding, 8 wks Time Seen by Provider: 03/19/24 22:42 History of Present Illness ED Provider: Elis FRANCO narrative: The patient is a 23-year-old female who was with her 2nd . She had a miscarriage several years ago. She estimates that she is about 8 weeks by dates. Today she noticed some slight pink spotting from her vagina. She was concerned and came to the emergency room. She has also had some slight discomfort with urination. No fever, sweats, chills. No pelvic pain. No vaginal discharge other than some light pink spotting. Has some slight pain across her lower back bilaterally but no unilateral flank pain. No vomiting although she has had some nausea associated with the . She plans on having her care with [facility]. Related Data Previous Rx's ?Medication ?Instructions ?Recorded ibuprofen 600 mg tablet 600 mg PO Q6H PRN pain #20 tabs 09/03/21 naproxen 500 mg tablet 500 mg PO BID PRN pain #20 tabs 01/14/23 cefpodoxime 100 mg tablet 100 mg PO BID 5 days #10 tabs 03/19/24 Allergies Allergy/AdvReac Type Severity Reaction Status Date / Time Penicillins [PENICILLINS] Allergy Severe ANGIOEDEMA Verified 03/19/24 20:30 Review of Systems 2 Review of Systems: Yes all other systems are reviewed and are negative PMFSH Past Medical History Medical History COVID-19 Endometriosis Complex cyst of left ovary Complex cyst of both ovaries Asthma Surgical History H/O laparoscopy (12/06/22) Family History Family History Maternal Grandmother Uterine cancer Maternal Aunt Cancer Social History Social History Alcohol intake: never Smoked in Last 30 Days: No Use of substances other than those prescribed or required for medical reasons: No Advance Directives: No Advance Directives Information Provided: No Do you have a plan to hurt others: No Plan Patient : Yes Sexual orientation: Straight/Heterosexual Gender identity: Female Physical Exam ED Vital Signs: Vital Signs - 24 hr 03/19/24 20:27 03/19/24 21:44 Temperature 98 F 98.2 F Pulse Rate 92 86 Respiratory Rate 17 12 Blood Pressure 130/80 112/72 Pulse Oximetry 100 100 Oxygen Delivery Method Room Air Room Air BMI result Body Mass Index 27.4 Const Other: The patient is awake, alert, pleasant, cooperative. She does not appear in acute distress. HENMT Head: Yes normal to inspection Face and sinus: Yes normal facial exam and Yes face symmetric Mouth: Normal oral and palatal mucosa present and moist mucous membranes Eyes General: appearance normal, both eyes and all related structures Neck Neck: Yes normal visual inspection and Yes full ROM Resp Effort & Inspection: normal respiratory effort Auscultation: clear to auscultation bilaterally Cardio Rate: regular rate Rhythm: regular rhythm Heart sounds: S1 normal heart sound present and S2 normal heart sound present GI Other: The abdomen is flat, soft and nontender. No significant lower abdominal tenderness. General: Yes no CVA tenderness Back/Spine/Pelvis Back: no CVA tenderness Skin Other: Skin is dry and unremarkable Neuro Other: the patient is awake and alert with normal mental status. Cranial nerves grossly intact. She moves her extremities normally and seems grossly neurologically intact. Extrem Other: No calf swelling or tenderness. No peripheral edema. Course Course Course Narrative: RME performed by Sylwia Portillo PA-C. Patient is a 23 year old assigned female at presenting to the emergency department with and vaginal bleeding. Patient states she is 8 weeks with her first child and has blood tinged toilet paper recently. Detailed physical exam and review of systems are deferred to the food services director. Labs and imaging ordered. Patient placed back in the waiting room pending room availability and results. Medications Administered Discontinued Medications Generic Name Dose Route Start Last Admin Trade Name Freq PRN Reason Stop Dose Admin Cefuroxime Axetil 250 mg 03/19/24 22:59 03/19/24 23:45 Cefuroxime Axetil 250 Mg Tablet PO 03/19/24 23:00 250 mg ONCE ONE Administration Medical Decision Making Medical Decision Making MDM Narrative: Patient is a 23-year-old female who believes that she is about 8 weeks by dates. This is her 2nd . She had a miscarriage several years ago. [facility] has not yet been seen in the office. She has not had an ultrasound for this . She had had an ultrasound ordered at triage. The ultrasound shows a normal intrauterine at approximately 8 weeks. No pathology seen. The patient has some mild urinary symptoms and a somewhat abnormal urinalysis. The patient will be placed on a course of cefpodoxime. She really does not seem to have any significant vaginal bleeding and only describes slight spotting. She will be discharged to follow-up with OB at [facility] as scheduled next week. Lab Data 03/19/24 20:56 03/19/24 20:56 Labs: Lab Results 03/19/24 Range/Units 20:56 WBC 8.8 (4.8-10.8) X10*3/uL RBC 4.31 (4.20-5.50) X10*6/uL Hgb 11.3 L (12.0-16.0) g/dl Hct 34.0 L (37.0-47.0) % MCV 78.9 L (80.0-98.0) fL MCH 26.2 L (27.0-33.0) pg MCHC 33.2 (31.0-35.0) g/dl RDW 15.5 (11.0-16.0) % Plt Count 218 (160-400) X10*3/uL MPV 8.9 L (9.4-12.3) fL Immature Gran % (Auto) 0.5 H (0.0-0.4) % Neut % (Auto) 60.7 (45-73) % Lymph % (Auto) 29.9 (20-40) % Guthrie % (Auto) 7.2 (2-11) % Eos % (Auto) 1.5 (0-4) % Baso % (Auto) 0.2 (0-2) % Lymph # (Auto) 2.6 (1.2-4.9) X10*3/uL [place]rie # (Auto) 0.6 (0.1-1.2) X10*3/uL Eos # (Auto) 0.1 (0.0-0.4) X10*3/uL Baso # (Auto) 0.0 (0.0-0.2) X10*3/uL Abs Immat Gran (auto) 0.04 H (0.00-0.03) X10*3/uL Absolute Neuts (auto) 5.3 (2.0-8.3) x10*3/uL Absolute Nucleated RBC 0.000 (0.0-0.012) X10*3/uL Nucleated RBC % (auto) 0.0 (0.0-0.2) /100WBC Sodium 138 (135-145) mmol/L Potassium 3.7 (3.3-5.1) mmol/L Chloride 103 (96-108) mmol/L Carbon Dioxide 24 (22-29) mmol/L Anion Gap 15 (12-20) BUN 11 (9-16) mg/dL Creatinine 0.71 (0.5-1.4) mg/dL Estim Creat Clear Calc 109.5 Estimated GFR > 60 Random Glucose 92 (60-115) mg/dL Calcium 9.0 (8.4-10.2) mg/dL Magnesium 2.4 (1.6-2.6) mg/dL Total Bilirubin 0.2 (0.0-1.0) mg/dL AST 13 (5-31) U/L ALT 10 (0-31) U/L Alkaline Phosphatase 49 (39-117) U/L Total Protein 7.2 (6.5-8.0) g/dL Albumin 4.0 (3.5-5.0) g/dL Beta HCG, Quant [id number] mIU/mL Urine Color Yellow Urine Appearance Cloudy Urine pH 5.5 (5.0-9.0) Ur Specific [place] 1.020 (1.005-1.025) Urine Protein Negative (Neg-Trace) mg/dL Urine Glucose (UA) Negative (Negative) mg/dL Urine Ketones Negative (Negative) mg/dL Urine Blood Negative (Negative) Urine Nitrite Negative (Negative) Ur Leukocyte Esterase Moderate (2+) H (Negative) Urine RBC 0-2 (0-2) /HPF Urine WBC 21-50 H (0-5) /HPF Ur Squamous Epith Cells 11-20 (0-2) /HPF Urine Bacteria 2+ (None Seen) Hyaline Casts 3-5 (0-2) /LPF Influenza Type A (PCR) NEGATIVE (Negative) Influenza Type B (PCR) NEGATIVE (Negative) RSV RNA Qual (PCR) NEGATIVE (Negative) SARS-CoV-2 RNA (RT-PCR) NEGATIVE (Negative) Discharge Plan Discharge Clinical Impression: Vaginal spotting, First trimester , Urinary tract infection Patient Disposition: Home, Self-Care Additional Instructions: Your ultrasound in your blood testing today are reassuring. Your ultrasound shows that your is approximately 8 weeks. Your urine test suggest you might have a mild urinary tract infection. Please picking crew supervisor the prescription for the antibiotic prescribed (cepodoxime) at the [facility] on [facility] in the morning. Please take this 2 times a day for 5 days. Please keep your appointment at the office with [facility] as scheduled. Return to the emergency room if worse. Prescriptions: New cefpodoxime 100 mg tablet 100 mg PO BID 5 Days Qty: 10 0RF Rx Instructions: must administer with a meal/food No Action ibuprofen 600 mg tablet 600 mg PO Q6H PRN (Reason: pain) Qty: 20 0RF naproxen 500 mg tablet 500 mg PO BID PRN (Reason: pain) Qty: 20 0RF Referrals: Guilherme Rivera MD [Physician] - (1st trimester , spotting, UTI) Interventions: ED Discharge Assessment Last Done: 03/19/24 23:53 Discharge Date/Time: 03/19/24 23:54 Print Language: Monegasque
--- NOTE | 2024-03-19 20:52 | MHC.EDTECH ---
Patient brought into triage area,Labs/Sars/Urine obtained and sent to lab.
[2024-03-19 21:01] LABS: MANUAL DIFF FLAG NO
[2024-03-19 21:03] LABS: Basophils Percent Auto 0.2 % (0-2); Eosinophils Absolute Auto 0.1 X10*3/uL (0.0-0.4); Eosinophils Percent Auto 1.5 % (0-4); Hemoglobin 11.3 g/dl (12.0-16.0); Imm Gran Abs Auto 0.04 X10*3/uL (0.00-0.03); Imm Gran Pct Auto 0.5 % (0.0-0.4); Lymphocytes Absolute Auto 2.6 X10*3/uL (1.2-4.9); Lymphocytes Percent Auto 29.9 % (20-40); Mean Corpuscular HGB Conc 33.2 g/dl (31.0-35.0); Mean Corpuscular Hemoglobin 26.2 pg (27.0-33.0); Mean Corpuscular Volume 78.9 fL (80.0-98.0); Mean Platelet Volume 8.9 fL (9.4-12.3); Monocytes Absolute Auto 0.6 X10*3/uL (0.1-1.2); Monocytes Percent Auto 7.2 % (2-11); Neutrophils Absolute Auto 5.3 x10*3/uL (2.0-8.3); Neutrophils Percent Auto 60.7 % (45-73); Platelet Count 218 X10*3/uL (160-400); Red Blood Count 4.31 X10*6/uL (4.20-5.50); Red Cell Distribution Width 15.5 % (11.0-16.0); White Blood Count 8.8 X10*3/uL (4.8-10.8)
[2024-03-19 21:04] LABS: Appearance Urine Cloudy; Color Urine Yellow; Glucose Urine UA Negative (Negative); Leukocyte Esterase Urine Moderate (2+) (Negative); Nitrite Urine Negative (Negative); PH 5.5 (5.0-9.0); UMIC TRIGGER UACC YES; Urine Blood Negative (Negative); Urine Ketones Negative (Negative); Urine Protein Negative (Neg-Trace)
[2024-03-19 21:07] LABS: Bacteria Urine 2+ (None Seen); RBC Urine 0-2 /HPF (0-2); UACC Culture Trigger YES; WBC Urine 21-50 /HPF (0-5)
[2024-03-19 21:27] LABS: Alanine Aminotransferase 10 U/L (0-31); Alkaline Phosphatase 49 U/L (39-117); Anion Gap 15 (12-20); Aspartate Amino Transferase 13 U/L (5-31); Bilirubin Total 0.2 mg/dL (0.0-1.0); Blood Urea Nitrogen 11 mg/dL (9-16); Carbon Dioxide 24 mmol/L (22-29); Chloride 103 mmol/L (96-108); Creatinine Clr Calc Pharmacy 109.5; Estimated Glomerular Filt Rate > 60; Glucose Random 92 mg/dL (60-115); Magnesium 2.4 mg/dL (1.6-2.6); Potassium 3.7 mmol/L (3.3-5.1); Sodium 138 mmol/L (135-145); Total Protein 7.2 g/dL (6.5-8.0)
[2024-03-19 21:44] VITALS: BP 112/72; PULSE 86; RESP 12; TEMP 36.8; O2SAT 100
[2024-03-19 21:46] LABS: Influenza A PCR NEGATIVE (Negative); Influenza B PCR NEGATIVE (Negative); Resp Syncy Virus RNA Qual PCR NEGATIVE (Negative); SARS COV2 PCR INHOUSE NEGATIVE (Negative)
[2024-03-19 21:47] LABS: HCG Quantitative 143820 mIU/mL
[2024-03-19 23:23] VITALS: BP 91/52; PULSE 81; RESP 20; TEMP 36.7; O2SAT 99
[2024-03-19] MEDS: cefuroxime axetiL 250 MG TABLET PO (23:45)
[2024-03-19 23:53] VITALS: BP 104/65; PULSE 78; RESP 16; TEMP 36.8; O2SAT 98
== END 2024-03-19 23:54 | disposition home or self-care (01) ==
PROVIDERS: Physician Assistant Medical; Emergency Provider Emergency Medicine
DX: O26.851 Spotting complicating pregnancy, first trimester (principal); O23.41 Unspecified infection of urinary tract in pregnancy, first trimester; N39.0 Urinary tract infection, site not specified; Z3A.08 8 weeks gestation of pregnancy; Z03.818 Encounter for observation for suspected exposure to other biological agents ruled out; R10.2 Pelvic and perineal pain
CPT/HCPCS: 0241U; 76801; 80053; 81001; 83735; 84702; 85025; 87086; 99284

== ENCOUNTER 2024-04-12 15:43 | Outpatient (REF) | payer OTHER, MEDICAID, SELFPAY ==
[2024-04-12 17:32] LABS: TSH reflex Free T4 2.47 uIU/mL (0.32-4.0)
[2024-04-13 17:13] LABS: Triiodothyronine T3 Total 171 ng/dL (76-181)
[2024-04-13 21:38] LABS: Thyroglobulin Antibodies 1 IU/mL (< or = 1)
== END 2024-04-12 15:44 | disposition home or self-care (01) ==
LOC: HO.HHCL 15:43
PROVIDERS: Visit Provider Nurse Practitioner Family
DX: E03.8 Other specified hypothyroidism (principal)
CPT/HCPCS: 36415; 84443; 84480; 86800

== ENCOUNTER 2024-04-29 17:58 | Emergency (ER) | payer MEDICAID, SELFPAY ==
--- NOTE | ~2024-04-29 | US_ITS ---
EXAMINATION: US , LIMITED CLINICAL INFORMATION: Vaginal bleeding. 14 weeks . COMPARISON: Ultrasound of the 03/19/2024 TECHNIQUE: Transabdominal imaging of pelvis was performed. FINDINGS: There is a single live intrauterine fetus in cephalic position with a heart rate of 1 56 bpm. On measurements femoral length measures 1.3 cm corresponding to approximately 14 weeks 1 day +/- 1 week 3 days. The placenta is anterior. The cervix is closed. US/US OB limited IMPRESSION: Single live intrauterine fetus with a heart rate of 1 56 bpm. Limited measurements reveals a gestational age of 14 weeks 1 day. Electronically signed by: Escobar Guillen MD 04/29/2024 08:59 PM EDT RP
[2024-04-29 18:06] VITALS: BP 144/92; PULSE 102; RESP 18; TEMP 37.2; O2SAT 100; BMI 29.3
--- NOTE | 2024-04-29 18:06 | ECG_ITS ---
Test Reason : DIZZINESS Blood Pressure : / mmHG Vent. Rate : 099 BPM Atrial Rate : 099 BPM P-R Int : 186 ms QRS Dur : 076 ms QT Int : 344 ms P-R-T Axes : 065 064 050 degrees QTc Int : 441 ms Normal sinus rhythm Normal ECG When compared with ECG of 24-OCT-2021 15:13, No significant change was found Referred By: Rina Cisneros Electronically Signed By:RAMU DE SANTIAGO
--- NOTE | 2024-04-29 18:07 | ED_ITS ---
HPI - General Chief complaint: General Medical Stated complaint: 14 weeks preg/spotting/headache Time Seen by Provider: 04/29/24 19:44 Source: patient, RN notes reviewed and old records reviewed Mode of arrival: ambulatory Limitations: no limitations History of Present Illness ED Provider: Markel FRANCO Narrative: 23-year-old female the with past medical history significant for endometriosis presents for evaluation of lower abdominal pain and vaginal spotting. Patient reports that she is , about 14 weeks. She states that started this morning she has had some lower abdominal pain bili greater on the right compared to left. She reports that she has had some pink spotting but denies any heavy vaginal bleeding. She is . Her OBGYN is located in [facility] The patient reports that she had an ultrasound around 8 weeks that confirmed an intrauterine gestation Currently she has 0/10 pain and states that her pain waxes and wanes. She denies any nausea vomiting, diarrhea, constipation. Denies any fevers or chills Related Data Previous Rx's ?Medication ?Instructions ?Recorded ibuprofen 600 mg tablet 600 mg PO Q6H PRN pain #20 tabs 09/03/21 naproxen 500 mg tablet 500 mg PO BID PRN pain #20 tabs 01/14/23 cefpodoxime 100 mg tablet 100 mg PO BID 5 days #10 tabs 03/19/24 cefpodoxime 100 mg tablet 100 mg PO Q12H #10 tabs 04/29/24 Allergies Allergy/AdvReac Type Severity Reaction Status Date / Time Penicillins [PENICILLINS] Allergy Severe ANGIOEDEMA Verified 04/29/24 18:09 Review of Systems 2 Constitutional: Constitutional: Denies body ache(s), Denies chills and Denies fever(s) Eyes: Eyes: Denies blurry vision ENT: Denies sore throat Cardiovascular: Cardiovascular: Denies chest pain and Denies dyspnea Respiratory: Respiratory: Denies cough and Denies dyspnea Gastrointestinal: Gastrointestinal: Reports abdominal pain, Denies nausea and Denies vomiting Genitourinary: Genitourinary: Reports pelvic pain Musculoskeletal: Musculoskeletal: Denies back pain Integumentary/Breasts: Skin/Breast: Denies rash PMFSH Past Medical History Medical History COVID-19 Endometriosis Complex cyst of left ovary Complex cyst of both ovaries Asthma Surgical History H/O laparoscopy (12/06/22) Family History Family History Maternal Grandmother Uterine cancer Maternal Aunt Cancer Social History Social History Alcohol intake: never Advance Directives: No Advance Directives Information Provided: No Do you have a plan to hurt others: No Plan Sexual orientation: Straight/Heterosexual Gender identity: Female Physical Exam 2 Vital Signs: Vital Signs: Last Vital Signs Temp 97.8 F 04/29/24 19:36 Pulse 80 04/29/24 19:36 Resp 16 04/29/24 19:36 BP 111/65 04/29/24 19:36 Pulse Ox 98 04/29/24 19:36 O2 Del Method Room Air 04/29/24 19:36 BMI result Body Mass Index 29.3 Const: General: healthy appearing, comfortable, no acute distress, alert and awake Nutritional Appearance: well nourished Orientation/consciousness: p atient oriented x3 HEENT: Head: Yes normocephalic and Yes atraumatic Eyes: Eyelids: Yes eyelids normal Conjunctivae: conjunctivae normal S clerae: sclerae normal Corneas: corneas normal Pupils: Equal, round and reactive pupils present EOM: EOMs intact bilaterally Neck: Neck: Yes full ROM Resp: Effort & Inspection: normal respiratory effort, able to speak in complete sentences and not labored GI: Inspection: No distended Palpation (GI): Soft to palpation, not firm, nontender, no guarding and not rigid Skin: General skin exam: elasticity normal Neuro: General: patient oriented x3 Cranial nerves: Yes Equal, round and reactive pupils present and Yes Bilaterally intact EOM present Cognition (Neuro): normal cognition Course Course Course Narrative: This is a Rapid Medical Examination (RME) performed by Dani Cisneros PA-C in triage. Full HPI, ROS, assessment and treatment plan per primary provider in the Main ED. 23 with MALIK of 10/[birth year] who is currently 14 weeks today, history of endometriosis, hx ectopic 2018, ovarian cysts who presents to the ER for evaluation of light pink vaginal spotting that started today along with right-sided abdominal and pelvic pain that is intermittent. Patient also reports an intense headache and lightheadedness and dizziness. She had a near syncopal episode today at work today. No chest pain or shortness of breath. No fevers. She follows with OBGYN at [facility]. Plan: Lab workup, ultrasound Reevaluation(s) Reevaluation #1: Patient's ultrasound does not show any evidence of miscarriage or ectopic. Systolic show trace bacteria with a few white cells. I discussed possible treatment with the patient and she is comfortable receiving antibiotics we will treat with cefuroxime 100 mg b.i.d. x5 days. She has follow-up with her OBGYN within the next 2 weeks Time: 21:20 Medications Administered Discontinued Medications Generic Name Dose Route Start Last Admin Trade Name Freq PRN Reason Stop Dose Admin Acetaminophen 975 mg 04/29/24 18:09 04/29/24 18:12 Acetaminophen 325 Mg Tablet PO 04/29/24 18:10 975 mg ONCE ONE Administration Medical Decision Making Medical Decision Making [facility] Narrative: 23-year-old female presents for evaluation of intermittent abdominal pain, vaginal spotting and intermittent dizziness. Currently she is asymptomatic. She reports having had an intrauterine gestation. She is blood type A positive. Plan for ultrasound to evaluate for ectopic which is favored to be less likely as she reports having had a previous ultrasound. I have a lower suspicion for miscarriage as she has had very light spotting, no heavy bleeding. Differential Diagnosis Differential Diagnoses: The differential diagnosis associated with the presentation includes Abdominal pain Endometriosis Ectopic Heterotopic UTI Lab Data [facility] Lab Attestation statement: I reviewed the patient's lab results. No leukocytosis. The patient does have a mild anemia, a normal platelet count. No significant electrolyte abnormalities. Serum hCG as at an appropriate level 04/29/24 18:26 04/29/24 18:26 Labs: Lab Results 04/29/24 04/29/24 Range/Units 18:26 19:45 WBC 8.8 (4.8-10.8) X10*3/uL RBC 4.02 L (4.20-5.50) X10*6/uL Hgb 10.9 L (12.0-16.0) g/dl Hct 32.4 L (37.0-47.0) % MCV 80.6 (80.0-98.0) fL MCH 27.1 (27.0-33.0) pg MCHC 33.6 (31.0-35.0) g/dl RDW 14.4 (11.0-16.0) % Plt Count 209 (160-400) X10*3/uL MPV 9.1 L (9.4-12.3) fL Immature Gran % (Auto) 0.6 H (0.0-0.4) % Neut % (Auto) 66.9 (45-73) % Lymph % (Auto) 24.5 (20-40) % [place] % (Auto) 6.5 (2-11) % Eos % (Auto) 1.3 (0-4) % Baso % (Auto) 0.2 (0-2) % Lymph # (Auto) 2.2 (1.2-4.9) X10*3/uL [place] # (Auto) 0.6 (0.1-1.2) X10*3/uL Eos # (Auto) 0.1 (0.0-0.4) X10*3/uL Baso # (Auto) 0.0 (0.0-0.2) X10*3/uL Abs Immat Gran (auto) 0.05 H (0.00-0.03) X10*3/uL Absolute Neuts (auto) 5.9 (2.0-8.3) x10*3/uL Absolute Nucleated RBC 0.000 (0.0-0.012) X10*3/uL Nucleated RBC % (auto) 0.0 (0.0-0.2) /100WBC Sodium 137 (135-145) mmol/L Potassium 3.8 (3.3-5.1) mmol/L Chloride 106 (96-108) mmol/L Carbon Dioxide 23 (22-29) mmol/L Anion Gap 12 (12-20) BUN 9 (9-16) mg/dL Creatinine 0.64 (0.5-1.4) mg/dL Estim Creat Clear Calc 125.3 Estimated GFR > 60 Random Glucose 88 (60-115) mg/dL Calcium 9.0 (8.4-10.2) mg/dL Magnesium 1.9 (1.6-2.6) mg/dL Total Bilirubin 0.1 (0.0-1.0) mg/dL Direct Bilirubin < 0.2 (0.0-0.5) mg/dL AST 11 (5-31) U/L ALT 13 (0-31) U/L Alkaline Phosphatase 51 (39-117) U/L Total Protein 6.7 (6.5-8.0) g/dL Albumin 3.6 (3.5-5.0) g/dL Beta HCG, Quant 22379 mIU/mL Urine Color Yellow Urine Appearance Clear Urine pH 6.0 (5.0-9.0) Ur Specific Parker <= 1.005 (1.005-1.025) Urine Protein Negative (Neg-Trace) mg/dL Urine Glucose (UA) Negative (Negative) mg/dL Urine Ketones Negative (Negative) mg/dL Urine Blood Negative (Negative) Urine Nitrite Negative (Negative) Ur Leukocyte Esterase Small (1+) H (Negative) Urine RBC 0-2 (0-2) /HPF Urine WBC 6-10 H (0-5) /HPF Ur Squamous Epith Cells 6-10 (0-2) /HPF Urine Bacteria Trace (None Seen) Hyaline Casts 0-2 (0-2) /LPF Influenza Type A (PCR) NEGATIVE (Negative) Influenza Type B (PCR) NEGATIVE (Negative) RSV RNA Qual (PCR) NEGATIVE (Negative) SARS-CoV-2 RNA (RT-PCR) NEGATIVE (Negative) Blood Type A Positive Discharge Plan Discharge Clinical Impression: Abdominal pain during , UTI (urinary tract infection) Patient Disposition: Home, Self-Care Instructions: Acute Urinary Retention in Women (ED), Abdominal Pain (ED) Additional Instructions: Your ultrasound does not show any concerning abnormalities. Take cefuroxime twice daily for the next 5 days to treat UTI. Follow-up with your OBGYN Return for new or worsening symptoms Prescriptions: New cefpodoxime 100 mg tablet 100 mg PO Q12H Qty: 10 0RF Rx Instructions: must administer with a meal/food No Action ibuprofen 600 mg tablet 600 mg PO Q6H PRN (Reason: pain) Qty: 20 0RF naproxen 500 mg tablet 500 mg PO BID PRN (Reason: pain) Qty: 20 0RF cefpodoxime 100 mg tablet 100 mg PO BID 5 Days Qty: 10 0RF Rx Instructions: must administer with a meal/food Print Language: Tajik
[2024-04-29] MEDS: Acetaminophen 325 MG TABLET 975 MG PO (18:12)
[2024-04-29 18:32] LABS: MANUAL DIFF FLAG NO
[2024-04-29 18:33] LABS: Basophils Percent Auto 0.2 % (0-2); Eosinophils Absolute Auto 0.1 X10*3/uL (0.0-0.4); Eosinophils Percent Auto 1.3 % (0-4); Hematocrit 32.4 % (37.0-47.0); Hemoglobin 10.9 g/dl (12.0-16.0); Imm Gran Abs Auto 0.05 X10*3/uL (0.00-0.03); Imm Gran Pct Auto 0.6 % (0.0-0.4); Lymphocytes Absolute Auto 2.2 X10*3/uL (1.2-4.9); Lymphocytes Percent Auto 24.5 % (20-40); Mean Corpuscular HGB Conc 33.6 g/dl (31.0-35.0); Mean Corpuscular Hemoglobin 27.1 pg (27.0-33.0); Mean Corpuscular Volume 80.6 fL (80.0-98.0); Mean Platelet Volume 9.1 fL (9.4-12.3); Monocytes Absolute Auto 0.6 X10*3/uL (0.1-1.2); Monocytes Percent Auto 6.5 % (2-11); Neutrophils Absolute Auto 5.9 x10*3/uL (2.0-8.3); Neutrophils Percent Auto 66.9 % (45-73); Platelet Count 209 X10*3/uL (160-400); Red Blood Count 4.02 X10*6/uL (4.20-5.50); Red Cell Distribution Width 14.4 % (11.0-16.0); White Blood Count 8.8 X10*3/uL (4.8-10.8)
[2024-04-29 18:51] LABS: Alanine Aminotransferase 13 U/L (0-31); Albumin Level 3.6 g/dL (3.5-5.0); Alkaline Phosphatase 51 U/L (39-117); Anion Gap 12 (12-20); Aspartate Amino Transferase 11 U/L (5-31); Bilirubin Direct < 0.2 mg/dL (0.0-0.5); Bilirubin Total 0.1 mg/dL (0.0-1.0); Blood Urea Nitrogen 9 mg/dL (9-16); Carbon Dioxide 23 mmol/L (22-29); Chloride 106 mmol/L (96-108); Creatinine Clr Calc Pharmacy 125.3; Estimated Glomerular Filt Rate > 60; Glucose Random 88 mg/dL (60-115); Magnesium 1.9 mg/dL (1.6-2.6); Potassium 3.8 mmol/L (3.3-5.1); Sodium 137 mmol/L (135-145); Total Protein 6.7 g/dL (6.5-8.0)
[2024-04-29 19:23] LABS: HCG Quantitative 55881 mIU/mL
[2024-04-29 19:36] VITALS: BP 111/65; PULSE 80; RESP 16; TEMP 36.6; O2SAT 98
[2024-04-29 19:55] LABS: Appearance Urine Clear; Color Urine Yellow; Glucose Urine UA Negative (Negative); Leukocyte Esterase Urine Small (1+) (Negative); Nitrite Urine Negative (Negative); Specific Gravity - Urine <= 1.005 (1.005-1.025); UMIC TRIGGER UACC YES; Urine Blood Negative (Negative); Urine Ketones Negative (Negative); Urine Protein Negative (Neg-Trace)
[2024-04-29 20:03] LABS: Influenza A PCR NEGATIVE (Negative); Influenza B PCR NEGATIVE (Negative); Resp Syncy Virus RNA Qual PCR NEGATIVE (Negative); SARS COV2 PCR INHOUSE NEGATIVE (Negative)
[2024-04-29 20:26] LABS: Bacteria Urine Trace (None Seen); Hyaline Casts Urine 0-2 /LPF (0-2); RBC Urine 0-2 /HPF (0-2); UACC Culture Trigger YES
[2024-04-29 21:24] VITALS: BP 98/53; PULSE 79; RESP 16; TEMP 36.7; O2SAT 100
[2024-04-29 21:33] VITALS: BP 98/53; PULSE 79; RESP 16; TEMP 36.7; O2SAT 100
== END 2024-04-29 21:34 | disposition home or self-care (01) ==
PROVIDERS: Physician Assistant; Emergency Provider Internal Medicine
DX: O20.9 Hemorrhage in early pregnancy, unspecified (principal); O23.42 Unspecified infection of urinary tract in pregnancy, second trimester; N39.0 Urinary tract infection, site not specified; R42 Dizziness and giddiness; R10.2 Pelvic and perineal pain; R51.9 Headache, unspecified; Z03.818 Encounter for observation for suspected exposure to other biological agents ruled out; Z3A.14 14 weeks gestation of pregnancy; Z79.899 Other long term (current) drug therapy
CPT/HCPCS: 0241U; 36415; 76815; 80048; 80076; 81001; 81003; 83735; 84702; 85025; 86900; 86901; 87086; 93005; 99284

== ENCOUNTER → 2024-04-29 18:06 | Outpatient (BNV) | payer MEDICAID, SELFPAY | PROVIDERS: Emergency Provider Internal Medicine; Visit Provider Internal Medicine | DX: R42 Dizziness and giddiness (principal) | CPT/HCPCS: 93010 ==

== ENCOUNTER 2025-01-05 11:38 | Outpatient (REF) | payer MEDICAID, SELFPAY ==
[2025-01-05 13:21] LABS: MANUAL DIFF FLAG NO
[2025-01-05 13:25] LABS: Basophils Percent Auto 0.3 % (0-2); Eosinophils Absolute Auto 0.1 X10*3/uL (0.0-0.4); Eosinophils Percent Auto 1.5 % (0-4); Hematocrit 38.6 % (37.0-47.0); Imm Gran Abs Auto 0.02 X10*3/uL (0.00-0.03); Imm Gran Pct Auto 0.3 % (0.0-0.4); Lymphocytes Absolute Auto 2.2 X10*3/uL (1.2-4.9); Lymphocytes Percent Auto 32.1 % (20-40); Mean Corpuscular HGB Conc 33.7 g/dl (31.0-35.0); Mean Corpuscular Hemoglobin 26.7 pg (27.0-33.0); Mean Corpuscular Volume 79.4 fL (80.0-98.0); Mean Platelet Volume 9.6 fL (9.4-12.3); Monocytes Absolute Auto 0.6 X10*3/uL (0.1-1.2); Monocytes Percent Auto 8.8 % (2-11); Neutrophils Absolute Auto 3.9 x10*3/uL (2.0-8.3); Platelet Count 271 X10*3/uL (160-400); Red Blood Count 4.86 X10*6/uL (4.20-5.50); Red Cell Distribution Width 15.5 % (11.0-16.0); White Blood Count 6.8 X10*3/uL (4.8-10.8)
--- OUTSIDE RECORDS SUMMARY | 2025-01-05 13:51 | XMS_ITS | Encounter Summary ---
Author Organization [employer] Address [address] [place] [address] [address] [place] [address] Care Team Providers Care Graphic Manager Name Role Phone Melani AvalosP Primary Care Provider [phone] Atiya Ruelas PROPERTY AND EQUIPMENT CLERK Primary Care Provider [phone] Lisandra Machado PROPERTY AND EQUIPMENT CLERK Primary Care Provider [phone] Encounter Details Date Type Department Care Team (Late st Contact Info) Description 02/04/2023 Orders Only [facility] [address], [place] [id number] Provider, Historical, Social History Tobacco Use Types Packs/Day Years Used Date Smoking Tobacco: Never Smokeless Tobacco: Never Alcohol Use Standard Drinks/Week Comments Yes 1 (1 standard drink = 0.6 oz pur e alcohol) Once a month, social Comments Unknown Sex and Gender Information Value Date Recorded Sex Assigned at Female 05/13/2022 10:36 AM EDT Legal Sex Female 10:36 AM EDT Gender Identity Female 05/13/2022 10:36 AM EDT Sexual Orientation Don't know 05/13/2022 10 :36 AM EDT documented as of this encounter Plan of Treatment Not on file documented as of this encounter Procedures Procedure Name Priority Date/Time Associated Diagnosis Comments HM PAP/HPV Routine 01/17/2022 documented in this encounter Results * Hm Pap Smear (01/17/2022) us Historical Provider HEALTH MAINTENANCE Final Result documented in this encounter Visit Diagnoses Not on filedocumented in this encounter Care Teams Graphic Manager Relationship Specialty Start Date End Date Melani Avalos FNP PCP - General Family Medicine 03/10/22 04/21/23 Atiya Ruelas NP [address] [place] [address] PCP - General Family Medicine 04/22/23 05/18/24 Lisandra Machaod NP [address] [place] [address] PCP - General Family Medicine 05/19/24 Shanell Ariza Oyster Washer 04/30/24 documented as of this encounter
[2025-01-05 14:19] LABS: Alanine Aminotransferase 24 U/L (0-31); Albumin Level 4.7 g/dL (3.5-5.0); Alkaline Phosphatase 84 U/L (39-117); Anion Gap 13 (12-20); Aspartate Amino Transferase 19 U/L (5-31); Bilirubin Total 0.2 mg/dL (0.0-1.0); Blood Urea Nitrogen 15 mg/dL (9-16); Calcium 9.7 mg/dL (8.4-10.2); Carbon Dioxide 28 mmol/L (22-29); Chloride 104 mmol/L (96-108); Estimated Glomerular Filt Rate > 60; Glucose Random 87 mg/dL (60-115); Potassium 4.1 mmol/L (3.3-5.1); Sodium 141 mmol/L (135-145); TSH reflex Free T4 2.31 uIU/mL (0.32-4.0); Total Protein 7.8 g/dL (6.5-8.0)
== END 2025-01-05 11:39 | disposition home or self-care (01) ==
LOC: HO.HHCL 11:38
PROVIDERS: PCP Nurse Practitioner Family; Visit Provider Nurse Practitioner Family
DX: E66.3 Overweight (principal); Z00.00 Encounter for general adult medical examination without abnormal findings
CPT/HCPCS: 36415; 80053; 84443; 85025

== ENCOUNTER 2025-01-28 13:08 | Outpatient (REF) | payer MEDICAID, SELFPAY ==
--- OUTSIDE RECORDS SUMMARY | 2025-01-28 13:10 | XMS_ITS | Clinical Summary ---
Author Organization [facility] Address [address] [address] Phone Care Team Providers Care Director Of Public Works Name Role Phone Unknown, Unknown MD Unavailable Unavailable Lisandra Machado COLLEGE PHYSICS INSTRUCTOR Primary Care Provider [phone] Allergies Active Allergy Reactions Criticality Noted Date Comments Penicillins Throat Tightness High 04/17/2021 Shrimp 11/24/2023 Medications albuterol 90 mcg/actuation inhaler Inhale 2 puffs into the lungs every 6 (six) hours as needed for wheezing. Active vitamins with ferrous fumaric-Folic acid (SHAUNNA ) 28 mg iron- 800 mcg Tab Take 1 tablet (0.8 mg total) by mouth daily. 90 tablet 3 5 Active levothyroxine (SYNTHROID,LEVO THROID) 25 MCG tablet Take 1 tablet (25 mcg total) by mouth every morning. 90 tablet 5 Active ferrous sulfate 325 mg (65 mg [place] iron) tablet Take 1 tablet (325 mg total) by mouth daily with breakfast. 60 tablet 3 5 01/20/20 25 Discontinu ed(No longer taking) Active Problems Problem Noted Date Diagnosed Date Cameroonian speech language pathologist travel needed 09/27/2024 Overview (09/27/2024): Understands some [place] certified travel counselor used Assessment & Plan (09/27/2024 10:02 AM EDT): In-person tutoring clinician used throughout visit today Anemia 08/10/2024 Overview (11/09/2024): Hgb 9.3 upon d/c PP from CBC, on oral iron. On 07/27/23 hgb was 9.7 and iron started. Pt was 26 wks. Assessment & Plan (09/27/2024 10:00 AM EDT): Repeat CBC Hgb 11.5, ferritin 37 Assessment & Plan (09/08/2024 11:34 AM EST): Repeat CBC next visit Assessment & Plan (08/24/2024 1:32 PM EST): Has been taking iron daily, noticed a great improvement in energy since she started. As she is already planning to repeat a TSH on 09/17/24 advised that we can wait until that date to also recheck CBC. Rec continued daily iron. Assessment & Plan (08/10/2024 8:20 AM EST): On 07/27/23 hgb was 9.7 and iron started. Deborah reports she has been taking iron for about one week and feels a great improvement in energy. Denies constipation. Will recheck CBC in 4 weeks and will order for then. Goiter 07/13/2024 Assessment & Plan (09/29/2024 3:38 PM EDT): Slight diffuse thyromegaly without palpable nodule or tenderness. No cervical lymphadenopathy. Negative TPO twice in 2023. Denies compression symptoms in the thyroid bed. Discussed that thyroid enlargement may be associated with and thyroid size can get larger with elevated TSH. -Monitor size clinically -Consider thyroid ultrasound if increasing size, asymmetry or palpable nodule/tenderness Assessment & Plan (07/13/2024 4:23 PM EST): Slight diffuse thyromegaly without palpable nodule or tenderness. No cervical lymphadenopathy. Negative TPO twice in 2023. Denies compression symptoms in the thyroid bed. Discussed that thyroid enlargement may be associated with and thyroid size can get larger with elevated TSH. -Monitor size clinically -Consider thyroid ultrasound after delivery or earlier if increasing size, asymmetry or palpable nodule/tenderness Carpal tunnel syndrome during 07/06/20 Assessment & Plan (08/10/2024 8:18 AM EST): Still noticing these symptoms but coping well. Assessment & Plan (07/27/2024 10:23 AM EST): Same discomfort but feels used to it and coping well. Assessment & Plan (07/06/2024 12:52 PM EST): Has been dealing with carpal tunnel both sides for awhile, tried wrist braces for a night or two but found uncomfortable. Suggested trying for a few nights to see if she can get used to, as night time is when symptoms are the worst, which we disc is most common with carpal tunnel especially in . Rubella non-immune status, antepartum 04/07/2024 Overview (09/20/2024): Plan vax PP Elevated TSH 04/03/2024 Overview (08/24/2024): 04/01/24 TSH 3.07 Needs follow up with PCP Patient reports PCP said it was normal 04/05 Recommended checking TPO antibodies and order placed - TPO antibodies negative Per UTD if positive, could start Levothyroxine 50 mcg daily. If TPO antibodies negative, could monitor q 4 weeks TSH level On 06/14/24 TSH 3.59, started pt on 12.5mcg levothyroxine on 07/06/24 and referral to Endocrine. Pt met with Endocrinology on 07/13/24 and was advised to continue on 12.5mcg of levothyroxine with recheck in 4-6 weeks since starting (pt reports starting this a little before 07/13/24). 08/10/24 TSH redraw: 4.20, pt has been taking 12.5mcg, she was advised to call Endocrine for instructions on dose change 08/24/24: Pt informs dose was increased to 25mcg daily Assessment & Plan (09/29/2024 3:40 PM EDT): Levothyroxine started at 12.5 mcg daily at the end of June when 21 weeks and TSH was over target at 3.59. Follow-up TSH at the end of July was high normal at 4.3. Levothyroxine dose was increased to 25 mcg daily and 1 month later TSH was close to target at 2.7. She is clinically euthyroid. Due date is 10/28/2024. -Continue 25 mcg levothyroxine daily. -Recheck TSH 6 weeks or earlier if symptoms of under or over replacement -Follow-up in 6 to 8 months Assessment & Plan (09/27/2024 10:02 AM EDT): Repeat TSH 2.70 on 09/20 Assessment & Plan (09/20/2024 12:27 PM EDT): Will repeat TSH today. Assessment & Plan (09/08/2024 11:35 AM EST): Repeat TSH next visit Assessment & Plan (08/24/2024 1:33 PM EST): Dose increased to 25mcg daily by Endocrine with plan for redraw a month after she started new dose, plans around 09/17/24. Assessment & Plan (08/10/2024 8:22 AM EST): TSH had been drawn early with T3 labs two weeks ago, 2.45, an improvement since starting levothyroxine. Continues on 12.5mcg. She will have TSH redrawn today, which is the recommended redraw timing from endocrine, and review level with Endocrine for recommendations. Assessment & Plan (07/27/2024 10:21 AM EST): Pt met with Endocrinology on 07/13/24 and was advised to continue on 12.5mcg of levothyroxine with recheck in 4-6 weeks since starting (pt reports starting this a little before 07/13/24). Reordered TSH w/reflex to be redrawn in 2 weeks when pt returns for OB visit. She has f/u with Endo scheduled in September. Assessment & Plan (07/13/2024 4:31 PM EST): 24-year-old woman with history of endometriosis, infertility, 25 weeks of after IUI was seen for elevated TSH for . Her due date is 10/28/2024. She was on 25 mcg levothyroxine between 08/2022 and 05/2023 by her initial reproductive specialist at [facility] because TSH was high for planned at 3.03 in 07/2022. TSH was between 1.74 and 2.21 while on 25 mcg LT4 daily. Her levothyroxine was not renewed after 05/2023 when the reproductive center closed at [facility]. Her TSH has been monitored, was slightly elevated at 4.38 prepregnancy in 10/2023, no treatment was suggested. TSH was 3.07 and 3.59 in 03/2024 and 06/2024 while about 10 weeks weeks respectively. Her TPO antibody was undetectable in 10/2023 and 03/2024. She denies typical symptoms of hypothyroidism. She was started on 12.5 mcg levothyroxine 2 days ago by her OB. She thinks that her maternal great aunt had hyperthyroidism and had a cancer on her neck area-not confirmed if it is related to thyroid-in quickly after the cancer diagnosis. Patient is clinically euthyroid. Has a slight diffuse goiter. No compression symptoms. We discussed basic thyroid physiology, meaning of TFTs, symptoms of hypo-/hyperthyroidism. -Continue 12.5 mcg LT4 daily for now. -Repeat TSH 4 to 6 weeks after LT4 started. Goal TSH 0.5-2.5 partly to prevent further growth of her thyroid during . -Follow-up in September. Assessment & Plan (07/06/2024 12:50 PM EST): TSH 3.59 on recent lab check on 06/14/24. Will start on levothyroxine 12.5mcg and refer to endocrinology. Plan recheck of TSH in 4 wks. Assessment & Plan (06/08/2024 4:20 PM EST): Repeat TSH today Assessment & Plan (04/14/2024 6:19 PM EDT): Had TPO antibodies drawn yesterday. 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 FSH 15.3, AMH 0.36 Assessment & Plan (01/19/2025 12:17 PM EDT): I did explain that ovarian reserve can decrease further over time. Her FSH and AMH are concerning given her young age. I did explain that endometriosis can contribute to a decrease in ovarian reserve but that can also be an independent process that may not be associate with endometriosis as well. I explained that there is not any effective treatment from preventing decreased ovarian reserve in the circumstances but it is very reasonable to consider treatment of the endometriosis between pregnancies. I did recommend she wait at least 1 year between pregnancies, particularly since she has had a as her mode of delivery. She would like to try for vaginal in the next . I explained that I would recommend treating her endometriosis with oral contraceptives at the present time but she would like to have her ovarian reserve checked first which is reasonable. In terms of the treatment, she did not do well on combined oral contraceptives in the past and we will most likely use progestin only methods of treatment. 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 Results not found in Media. Pt reports colpo was negative Repeat pap done at [facility]: NILM HPV neg Female infertility 12/24/2023 Bilateral impacted cerumen 12/23/2023 History of loss, not currently pregnan t 08/01/2023 Overview (08/01/2023): 2018 in [place]. States she had ectopic , but no treatment and describes passing vaginally. In early , will need ectopic risk protocol regardless d/t endometriosis history. Asthma 11/27/2022 11/27/2022 Overview (07/06/2024): Uses nebulizer or albuterol with exacerbation. No hx of hospitalization or intubation At 23 weeks visit - reported a flare of asthma, being managed by PCP. Ventolin and a nasal spray, not using albuterol currently as it causes her heart to race Assessment & Plan (07/06/2024 12:54 PM EST): Has been having a flare of her asthma and working with her PCP. She reports she often gets a flare in the winter and has been having some congestion. PCP has prescribed ventolin which she uses nightly and has a nasal spray PRN. She hasn't been using albuterol as she finds it causes her heart to race. Feels that with recent interventions from PCP that asthma is feeling well controlled, reviewed when she should present to ED or follow up with her PCP. Rev importance of asthma mgmt in . Assessment & Plan (03/26/2024 12:02 PM EDT): Discussed importance of good sx control in . Currently monitored by PCP. Endometriosis determined by laparoscopy 06/12/20 Assessment & Plan (10/18/2021 8:57 PM EDT): I reviewed the natural history of endometriosis and how can contribute to pelvic pain and painful periods. I have no doubt that given the previous description at the time of laparoscopy and her current symptoms that her pain is secondary to endometriosis. I reviewed both medical and surgical management of endometriosis. I explained that often a combination of both is required to help alleviate the symptoms. When I first met her, she was interested in pursuing in the near future but is willing to defer that for now as she understands that most medical forms of management for endometriosis would preclude actively trying to get . However, I think she might also benefit from a repeat laparoscopy. However, I do not think that an attempt by another general federal court of appeals law clerk would be optimal. I think she would benefit most by being referred to reproductive endocrinology for discussion of both medical and surgical management as well as impact on future fertility. She is amenable to this plan of action. Assessment & Plan (06/12/2021 11:20 PM EST): Review of her previous op note confirms the diagnosis of endometrioisis. She was classified as Stage III. I reviewed the natural history of endometriosis with her. I reviewed the various treatment options. She has already been surgically managed and medical management in the future would be the primary choice of treatment. I reviewed that usually involves some form of hormonal management. She may consider in the next year or so. I explained that most forms of hormonal management would prevent but ultimately may improve her chances of conception if disease progression is altered. Treatment would be indicated as she continues to have significant pain. If surgical management is required again, could consider referral to Repro Endo. Resolved Problems Problem Noted Date Diagnosed Date Resolved Date Normal intrauterine , antepartum 10/21/2024 11/09/2024 H/O biophysical profile 10/19/2024 11/09/2024 Assessment & Plan (10/19/2024 1:02 PM EDT): Seen after BPP today for NST. BPP 12/19 off for tone. TAO normal NST reactive Discharge home with instructions for daily movement counting - to call if there is less than 10 movements in 2 hours. Has appt for Induction in 2 days Decreased movements in third trimester 11/09/2024 Assessment & Plan (10/19/2024 9:43 PM EDT): -Reactive NST -Pt is feeling tons of movement -Bile salts are still pending -Reviewed paper strip of FHT with MD Saenz -Pt has an IOL in 2 days -Reviewed [facility] and when to do them -Discharge home with instructions Cholestasis during in third trimester 10/11/2024 01/19/2025 Overview (10/11/2024): Presumed dx based on symptoms at 37 weeks - labs normal Cholestasis of o Bile acids and LFTs upon suspicion of diagnosis. Repeat labs weekly starting at 35 weeks o Ursodiol 300mg tid (can increase or decrease dose based on itching, see uptodate) o BPP twice weekly starting at time of diagnosis, EFW q 4 weeks o For patients with bile acids < 100 micromol/L, delivery at 39+0 weeks o For patients with bile acids > 100 micromol/L, delivery at 36+0 weeks Assessment & Plan (10/18/2024 11:46 AM EDT): Continues to have itching, though a little better Education provided that she can increase Ursodiol to 3x/day NST reactive today 10/18/24 Assessment & Plan (10/12/2024 1:44 PM EDT): Has been dating the ursodiol 300 mg TID but itching is still intolerable, particularly at night. Advised that she can increase to 600 mg BID. Repeated labs today. Reviewed plan for IOL at 39 weeks based on presumed diagnosis, even if labs remain normal, she agrees with this plan. Has U/S scheduled later this week. Itching 10/07/2024 11/09/2024 Overview (10/07/2024): On soles & palms, worse at night. Bile acids (pending) and LFTs (WNL) drawn at 37w. Rx for ursodiol 300 mg TID ordered. Plan NST at [place] in a few days. Pt knows to pay attention to FM and to call if concerned. Vaginal bleeding in pregnanc y, second trimester 07/11/2024 09/20/2024 Assessment & Plan (09/08/2024 11:36 AM EST): Seen on CBC. Bleeding was from hemorrhoid. Thanairy states that it is better and has had no further bleeding. Encounter for supervision of normal first in third trimester 03/26/2024 01/19/2025 Overview (10/12/2024): CNM OB-CMI score: 1 [03/26/2024] Group PN care? * screening carrier screening done previously--neg. cfDNA ordered Baby ASA NI Rh positive GC/Chlam Neg/Neg PAP done at [facility] NILM HPV neg Flu * COVID-19 * Hgb 9.7 - iron started GTT 138 Repeat RPR NR Tdap 08/24/24 EPDS 4 PPBC unsure, considering IUD GBS neg Feeding Plan breast Assessment & Plan (10/18/2024 10:22 AM EDT): Continues to have itching, not sleeping well at all Also continues to have increased discharge Cervical exam today= 0.5/40/-3, medium, posterior IOL scheduled for 630pm Thurs 10/21 Reviewed warning S/S, knows how/when to call/present F/U PRN until IOL Assessment & Plan (10/12/2024 1:42 PM EDT): Ren continues to feel very uncomfortable with pelvic pressure and pain. Visit today focused on itching of hands and feet with presumed cholestasis diagnosis, see prob list. Reviewed GBS neg. Assessment & Plan (10/04/2024 11:12 AM EDT): GBS with sensitivities collected today 10/04/24 Having some mucus and leukorrhea- reviewed normalcy of this Pelvic exam C/T/H, no pooling on spec exam, wet prep neg ferning Lots of and prolonged BH ctx- reviewed hydration and rest recommendation Extensive education provided on difference between BH ctx and labor ctx Reviewed warning S/S, knows how/when to call/present F/U in 1w or sooner PRN Assessment & Plan (09/27/2024 10:04 AM EDT): Lots of end of discomforts Feeling pelvic pressure consistent with SPD- reviewed comfort measures including Tylenol, warm Epsom salt baths, and cold compress Education provided on difference between leukorrhea, LOF, and mucus plug- expresses understanding Some nausea with eating- reviewed smaller meals, declines any med Discussed doing tour of Childbirth center Reviewed warning/labor S/S, knows how/when to call F/U in 1w or sooner PRN- GBS at that time Assessment & Plan (09/20/2024 12:30 PM EDT): Ren is feeling pretty well, just tired - 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 Baby has been very active. She has had a few lower back cramping episodes, 1-2 per day - reviewed s/s of labor and how to contact practice. PP BCM discussed, she has a history of endo and desires treatment once menses resume. Has had a lot of side effects with pills in the past. Might be interested in IUD. Gave info in AVS. Assessment & Plan (09/08/2024 11:38 AM EST): Deborah is feeling well. Baby is active. She is having some low back pain. Recommended support belt. She will look into that. Also having a hard time sleeping, just uncomfortable. Sleep hygiene reviewed. Can take benadryl or unisom to get a good night's sleep every once in a while. FMLA paperwork printed for her today. Assessment & Plan (08/24/2024 1:34 PM EST): Deborah is a 24yo at 30w5d who presents to routine OB visit. Discussion today on patients discomforts of lower extremity swelling and low back pain. Reviewed comfort measures to try. Pt submitted PFML paperwork today. TDAP accepted today. EPDS 4. Deborah asks about whether or not she will have another ultrasound - we disc that there is not a current indication to schedule another one and disc situations that could arise that would prompt the recommendation of another ultrasound. Rev T3 warning signs and when to call. Assessment & Plan (08/10/2024 8:18 AM EST): Deborah is a 24yo at 28w5d who presents to routine OB visit. Reports she was very worried a few days ago when, at night when she got into bed, she had a painful menstrual like cramp that was mostly on the left side of her abdomen and last for a couple of minutes. The cramping resolved and she did not have recurring cramping and hasn't noticed since. Provided reassurance, when to call, and anticipatory guidance. Received packet 5 today. Rev T3 warning signs and when to call. RTO 2 wks. Assessment & Plan (07/27/2024 10:22 AM EST): Deborah is a 24yo at 26w5d who presents to routine OB visit. Doing well, noticing a lot more FM. Completing GTT/CBC/RPR today. Rev when to call. RTO 2 wks. Assessment & Plan (07/06/2024 12:56 PM EST): Deborah is a 24yo at 23w5d who presents to routine OB visit. Rev discomforts with carpal tunnel and disc asthma, see full note today. T3 labs ordered, reviewed timing of completion. Rev when to call. RTO 4 wks. Assessment & Plan (06/08/2024 4:22 PM EST): Deborah is here with her partner. She is feeling well. Happy with normal anatomy scan today. Feeling some movement. Requesting rx for breast pump today. Provided. No other questions or concerns. Assessment & Plan (05/17/2024 1:08 PM EST): Deborah is doing OK today. She has been having a lot of abdominal pressure as well as increased vaginal discharge. Spec exam and wet prep done which showed yeast. Rx for terazole sent. Reviewed normal second trimester discomforts and comfort measures. Anatomy scan and YUN scheduled. Assessment & Plan (04/14/2024 6:19 PM EDT): Deborah is a 23yo at 11w5d who presents to routine OB visit today with c/o intermittent sharp pain in RLQ that started at 3am and has been intermittent. When the pain occurs, pt describes that she needs to fold over because of the discomfort. She feels it is overall diminishing in frequency and severity but is still noticing. Additionally she noticed pink tinged discharge with wiping this morning x 2. At time of visit, this CNM was unable to obtain FHR by doppler so requested u/s, which was done and normal FHR and viable seen. Pt had presented with her friend today, who she requested be her tutoring clinician as needed. Disc some comfort measures to try for RLQ discomfort and what she should monitor for with pain and bleeding, and when to call. RTO 4 wks. Assessment & Plan (03/26/2024 12:09 PM EDT): Deborah is a 23yo @ 9+1 wks by LMP c/w 9+2wk US today. Pt reports feeling tired well. Is not eating much d/t nausea and occ vomiting up to 2 times a day. We discussed importance of small frequent meals/snacks and started unisom and vit B6. Discussed when to seek emergent care. Reviewed dating US that confirms LMP dating Oriented pt to practice. YUN 2 wks--check in on nausea and vomiting Immunization declined 05/16/20232024 Overview (12/24/2023): Last Assessment & Plan: Decline flu, Covid, HPV IZ today. Counseled to have them done at her earliest convenience at a nearby pharmacy or call back PRN. Encounters Date Type Department Care Team Description 01/19/2025 11:20 AM EDT Office Visit [facility] [address] [place] [address] [place] [address] Popeye Loyola MD Miranda-Leon, [place] Fertility testing (Primary Dx); Diminished ovarian reserve 12/07/2024 1:50 PM EDT Visit [facility] [address] [place] [address] [place] [address] Deena Low CNM Miranda[place], [place] state (Primary Dx); History of section 11/10/2024 Telephone [facility] [address] [place] [address] Kimberly Morrell Services (Blood on nipple. ) 11/09/2024 11:00 AM EDT Office Visit [facility] [address] [place] [address] Blanca Dennis, KENDAL, MPH Encounter for care and examination of lactating mother (Primary Dx) 11/09/2024 10:50 AM EDT - 11/09/2024 11:59 PM EDT Hospital Encounter [facility] Laboratory [address] [place] [address] Blanca Dennis, TERRELLM, MPH Discharge Disposition: Home or Self Care 11/09/2024 9:50 AM EDT Visit [facility] [address] [place] [address] [place] [address] Blanca Dennis CNM, MPH anemia (Primary Dx); Anemia, unspecified type 11/08/2024 Telephone [facility] [address] [place] [address] Oswaldo Dowd MD Follow-up from Last 3 Months Immunizations Immunization Administration Dates Next Due COVID-19 (Pre-05/05) Pfizer Vaccine, mRNA, delphine-sucrose, PF 11/30/2020,11/09/2020 Influenza Quadrivalent Preservative Free IM 12/2023,05/24/2021,08/07/2020 MMR 10/25/2024 Tdap 08/24/2024,10/13/2020 Varicella 09/11/2022 Family History Medical History Relation Comments No Known Problems Father Breast cancer Maternal Grandmother Endometrial cancer Mother Relation Status Comments Father Alive Maternal Grandmother Mother Alive Sister Other Social History Tobacco Use Types Packs/Day Years Used Date Smoking Tobacco: Never Smokeless Tobacco: Never Tobacco Cessation:Counseling Given: Not Answered Alcohol Use Standard Drinks/Week Comments Never 0 (1 standard drink = 0.6 oz pur e alcohol) Education Answer Date Recorded Are you interested in more education? Not on trey e 11/07/2022 Are you concerned about learning? Not on file 11/07/2022 No 11/07/2022 No 11/07/2022 Food Answer Date Recorded Within the past 6 months we worried whether our food would run out before we got money to buy more. Never True 10/21/2024 Within the past 6 months the food we bought just didn't last and we didn't have enough money to get more. Never True Residential Stability Answer Date Recor ded What is your housing situation today? I have soniya sing 10/21/2024 How many times have you moved in the past 12 mon ths? One time 10/21/2024 Paying for Meds Answer Date Recorded Do you have trouble paying for medicines? No 10/21/2024 Paying Utility Bills Answer Date Record ed Do you have trouble paying your heating or elect ricity bill? No 10/21/2024 Transportation Answer Date Recorded Has the lack of transportati on kept you from medical appointments or from getting medications? No 10/21/2024 Digital Access Answer Date Recorded No 10/21/2024 Yes 10/21/2024 Do you have reliable internet access at home? Ye s 10/21/2024 Do you have a device (e.g., phone, tablet, computer) with a working camera? Yes 10/21/2024 Intimate Partner Violence Answer Date R ecorded Are you denied basic needs s uch as food, clothing, or medical care? No 10/27/2024 In the past 12 months have y ou been in a relationship with a person who hurts, threatens, or tries to control you? No 10/27/2024 Are you denied basic needs s uch as food, clothing, or medical care? No 10/27/2024 In the past 12 months have y ou been in a relationship with a person who hurts, threatens, or tries to control you? No 10/27/2024 Comments No Sex and Gender Information Value Date Recorded Sex Assigned at Female 06/28/2021 11:43 AM EST Legal Sex Female 1:41 PM EDT Gender Identity Female 06/28/2021 11:43 AM EST Sexual Orientation Straight 10/25/2021 10 :37 AM EDT Last Filed Vital Signs Vital Sign Reading Time Taken Comments Blood Pressure 112/68 01/19/2025 11:33 AM EDT Pulse 82 10/27/2024 11:36 AM EDT Temperature 36.7 C (98.1 F) 10/27/2024 11:36 AM EDT Respiratory Rate 16 10/27/2024 11:36 AM EDT Oxygen Saturation 97% 10/27/2024 1:29 AM EDT Inhaled Oxygen Concentration - - Weight 77.6 kg (171 lb) 01/19/2025 11:33 AM EDT Height 159.6 cm (5' 2.84 ) 01/19/2025 11:33 AM E DT Body Mass Index 30.45 01/19/2025 11:33 AM EDT Plan of Treatment Upcoming Encounters Date Type Department Care Team (Late st Contact Info) Description 05/25/2025 3:00 PM EST Office Visit [facility] [address] [place] [address] Tiffanie Juares MD [address] [place] [phone] [email or web address] Health Maintenance Due Date Last Done Comments DEPRESSION SCREENING 2010 HPV VACCINES (1 - 3-dose series) 2013 HEPATITIS A VACCINES (1 of 2 - Risk 2-dose series) 2017 PNEUMOCOCCAL VACCINES (0-49 years) (1 of 2 - PCV) 2017 COVID-19 VACCINE ( season) 2024 11/30/2020, 11/30/2020, 11/09/2020, Additional history exists TSH LEVEL 09/20/2025 09/20/2024, 07/15, 07/27/2024, Additional history exists PAP SMEAR 03/26/2027 03/26/2024 Adult Td,Tdap Booster 08/24/2034 08/24/2024, 021 HEPATITIS C SCREENING Completed 04/01/2024, 024 HIV ONE-TIME SCREENING (18-65 YEARS) Completed 04/01/2024 SMOKING STATUS SCREENING (Once After 26 Yrs) Completed 01/19/2025 HIB VACCINES Aged Out No longer eligi ble based on patient's age to complete this topic MENINGOCOCCAL VACCINES (ACWY) Aged Out No longer eligible based on patient's age to complete this topic MENINGOCOCCAL VACCINES (B) Aged Out N o longer eligible based on patient's age to complete this topic Medical Devices Not on file Procedures Procedure Name Priority Date/Time Associated Diagnosis Comments CBC Routine 11/09/2024 11:07 AM EDT anemia FERRITIN Routine 11/09/2024 11:07 AM EDT anemia TSH WITH REFLEX Routine 09/20/2024 12:16 PM EDT Goiter HEPATITIS C ANTIBODY, QUALITATIVE Routine 04/01/2024 9:17 AM EDT Encounter for supervision of normal in first trimester, unspecified PAP TEST Routine 03/26/2024 12:00 AM EDT from Last 3 Months or Most Recently Relevant to Health Maintenance Results * (ABNORMAL) CBC (11/09/2024 11:07 AM EDT) WBC 5.91 4.00 - 11.00 K/uL [facility] RBC 5.00 4.00 - 5.20 M/uL [facility] HGB 12.8 12.0 - 16.0 g/dL [facility] HCT 40.8 36.0 - 46.0 % [facility] PLT 264 150 - 450 K/uL [facility] MCV 81.6 80.0 - 100.0 fL [facility] MCH 25.6(L) 27.0 - 31.0 pg [facility] MCHC 31.4(L) 32.0 - 36.0 g/dL [facility] RDW 15.8(H) 11.5 - 14.5 % [facility] MPV 10.4 8.4 - 12.0 fL [facility] NRBC 0.00 0.00 /100 WBCs [facility] ABSOLUTE NRBC 0.00 0.00 K/uL [facility] Blood 11/09/2024 11:0 7 AM EDT 11/09/2024 11:08 AM EDT Blanca Dennis CNM, MPH LAB BLOOD ORDERABLES F inal Result Performing Organization Address City/[facility] Co de Phone Number [address] [address] * Ferritin (11/09/2024 11:07 AM EDT) FERRITIN 69 13 - 150 ug/L [facility] Blood 11/09/2024 11:0 7 AM EDT 11/09/2024 11:08 AM EDT Blanca Dennis CNM, MPH LAB BLOOD ORDERABLES F inal Result Performing Organization Address City/[facility]/ZIP Co de Phone Number [address] [address] * TSH with reflex (09/20/2024 12:16 PM EDT) TSH 2.70 0.27 - 4.20 uIU/mL [facility] Blood 09/20/2024 12:1 6 PM EDT 09/20/2024 12:19 PM EDT us Trudy Lakhani [facility] LAB BLOOD ORDERABLES Final Resul t Performing Organization Address City/[facility]/ZIP Co de Phone Number [address] [address] * Hepatitis C antibody, qualitative (04/01/2024 9:17 AM EDT) HCV NON-REACTIV E NON-REACTI VE [facility] Blood 04/01/2024 9:17 AM EDT 04/01/2024 9:27 AM EDT eDena Low [facility] LAB BLOOD ORDERABLE S Final Result Performing Organization Address [facility] Co de Phone Number [address] [address] * Pap Test (03/26/2024 12:00 AM EDT) 03/26/2024 03/29/2024 9:4 7 AM EDT Narrative SEE NARRATIVE - 04/01/2024 11:15 AM EDT [address] [address] Coordinator Hotels: Eveline Lawrence MD CASHIERS SUPERVISOR Cytology Report FINAL DIAGNOSIS A. PAP SMEAR (THIN PREP) CE: SPECIMEN ADEQUACY: Satisfactory for evaluation; transformation zone present. INTERPRETATION: NEGATIVE FOR INTRAEPITHELIAL LESION OR MALIGNANCY. Fungal organisms morphologically consistent with Gaby species. Due to blood, the specimen was reprocessed with 10% Glacial Acetic Acid. This specimen was analyzed by the automated ThinPrep Imaging System (Aubrey Suha.) and manually rescreened by a sugar cane farm manager and/or pathologist. Electronically Signed Out By: ESTEVAN Combs(ASCP) The Pap test is a screening test primarily for squamous cancers and precursors and has associated false-negative and false-positive results. New technologies such as liquid-based preparations may decrease but will not eliminate all false-negative results. Regular sampling and follow-up of unexplained clinical signs and symptoms are recommended to minimize false negative results. PROCEDURES/ADDENDA HPV Testing (Requested) Ordered Date: 03/29/2024 A. PAP SMEAR (THIN PREP) CE: Human Papilloma Virus Test NEGATIVE for high-risk Human Papilloma Virus types 16, 18, 45 and the Other high risk probe set (Includes 31, 33, 35, 39, 51, 52, 56, 58, 59, 66, 68) Note: Testing performed by [employer] HR-HPV analysis. Clinical correlation is advised. This HPV test was performed at [facility], [address] [place] [address]. This test has been FDA approved for both SurePath and ThinPrep cervical cytology specimens. The accuracy and precision of this test for all other specimen sources has been verified in the Cytopathology Laboratory of the [facility] and has not been cleared or approved by the U.S. Food and Drug Administration. Clinical correlation is advised. CLINICAL HISTORY Date of Last Menstrual Period: 01-22-2024 Menstrual History: Other Clinical Conditions: Screening Pap SPECIMEN SOURCE A: PAP SMEAR (THIN PREP) CE Patient Name: DEBORAH KESSLER : 2000 (Age: 23) Sex: F Institution: [facility] Location: [facility] [place] Date of Collection: 03/26/2024 Date of Reported: 04/01/2024 11:15 Results to: Kadi Felipe CNM us Kadi Felipe CNM CYTOLOGY ORDERABLES Final Result SEE NARRATIVE from Last 3 Months or Most Recently Relevant to Health Maintenance Insurance C3 ACO C3 ACO C3 ACO Advance Directives For more information, please contact: [phone] (9AM - 5PM [place], Friday-Friday) Documents on File Type Date Recorded 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 It is not the complete legal health record.[facility]
--- OUTSIDE RECORDS SUMMARY | 2025-01-28 13:10 | XMS_ITS | Encounter Summary ---
Author Organization [employer] Address [address] [place] [address] Care Team Providers Care Math Professor Name Role Phone Atiya Ruelas PANTRY ATTENDANT Primary Care Provider [phone] Lisandra Machado PANTRY ATTENDANT Primary Care Provider [phone] Encounter Details Date Type Department Care Team ([facility] st Contact Info) Description 04/29/[address] [facility] MED[facility]INE [address] [place] [address] Provider, MD Liza Social History Tobacco Use Types Packs/Day Years Used Date Smoking Tobacco: Never Smokeless Tobacco: Never Alcohol Use Standard Drinks/Week Comments Not Currently 1 (1 standard drink = 0.6 oz pur e alcohol) Once a month, social Housing Stability Answer Date Recorded What is your housing situation today? I have soniya nettles 05/08/[address] you li ve. Do you have problems with any of the following? None of the above 05/08/2023 Food Insecurity Answer Date Recorded Within the past 12 months, y ou worried that your food would run out before you got money to buy more: Sometimes True 2023 Within the past 12 months,th e food you bought just didn't last and you didn't have enough money to get more: Sometimes True 04/28/2024 Transportation Answer Date Recorded In the past 12 months, has l ack of transportation kept you from medical appts, meetings, work or from getting things needed for daily living? No 05/08/2023 Utilities Answer Date Recorded In the past 12 months, has t he electric, gas, oil or water company threatened to shut off services in your home? No 05/08/2023 Depression Answer Date Recorded Patient Health Questionnaire-2 Score 0 2023 Internet Access Answer Date Recorded Internet Access Q1 Yes 04/28/2024 Internet Access Q2 Not on file 04/28/2024 Comments Unknown Sex and Gender Information Value Date Recorded Sex Assigned at Female 05/13/2022 10:36 AM EDT Legal Sex Female 10:36 AM EDT Gender Identity Female 05/13/2022 10:36 AM EDT Sexual Orientation Don't know 05/13/2022 10 :36 AM EDT documented as of this encounter Plan of Treatment Not on file documented as of this encounter Procedures Procedure Name Priority Date/Time Associated Diagnosis Comments URINALYSIS, COMPLETE, WITH REFLEX TO CULTURE Routine 04/29/2024 7:45 PM EDT US OB LIMITED 1+ FETUSES Routine 04/29/2024 6:27 PM EDT SARS COV2/INFLUENZA A/B AND RSV RNA QL NAAT Routine 04/29/2024 6:26 PM EDT CBC WITH AUTO DIFFERENTIAL Routine 04/29/2024 6:26 PM EDT ABO GROUP AND RH TYPE Routine 04/29/2024 6:26 PM EDT HCG, TOTAL, QN Routine 04/29/2024 6:26 PM EDT MAGNESIUM Routine 04/29/2024 6:26 PM EDT HEPATIC FUNCTION PANEL Routine 04/29/2024 6:26 PM EDT BASIC METABOLIC PANEL Routine 04/29/2024 6:26 PM EDT CULTURE, URINE, ROUTINE Routine 04/29/2024 12:00 AM EDT HM PAP/HPV Routine 03/26/2024 3:48 PM EDT documented in this encounter Results * (ABNORMAL) Urinalysis, Complete, with Reflex to Culture (04/29/2024 7:45 PM EDT) Color Urine Yellow [facility] Appearance Urine Clear [facility] PH 6.0 5.0 - 9.0 [facility] Glucose Urine UA Negative Negative mg/dL [facility] Urine Blood Negative Negative [facility] Specific [place] - Urine <=1.005 1.005 - 1.025 [facility] Urine Protein Negative Neg-Trace mg/dL [facility] Urine Ketones Negative Negative mg/dL [facility] Nitrite Urine Negative Negative [facility] Leukocyte Esterase Urine Small (1+)(A) Negative [facility] RBC Urine 0-2 0 - 2 /HPF [facility] Urine WBC 6-10(A) 0 - 5 /HPF [facility] Urine Squamous Epithelial Cell 6-10 0 - 2 /HPF [facility] Urine Bacteria Trace None Seen [facility] Hyaline Casts, Urine 0-2 0 - 2 /LPF [facility] 04/29/2024 7:45 PM EDT 04/29/2024 7:49 PM EDT Narrative [facility] - 04/29/2024 8:27 PM EDT [id number], Clean Catch us Generic External Data Provider LAB URINE ORDERAB LES Final Result Performing Organization Address City/State/[facility] Co de Phone Number [facility] [address] [place] [phone] * US OB Limited 1+ Fetuses (04/29/2024 6:27 PM EDT) Anatomical Region Laterality Modality Body Ultrasound 04/29/2024 6:27 PM EDT Narrative 04/29/2024 9:02 PM EDT [address] [address] Ultrasound Report Signed Patient: Deborah Mcadams MR#: [id number] : 2000 Acct:[id number] Age/Sex: 23 / F ADM Date: 04/29/24 Loc: HO.ED Attending Dr: Ordering Physician: Rina Cisneros Date of Service: 04/29/24 Procedure(s): US OB limited Accession Number(s): [id number] cc: [facility]; Rina Cisneros EXAMINATION: US , LIMITED CLINICAL INFORMATION: Vaginal bleeding. 14 weeks . COMPARISON: Ultrasound of the 03/19/2024 TECHNIQUE: Transabdominal imaging of pelvis was performed. FINDINGS: There is a single live intrauterine fetus in cephalic position with a heart rate of 1 56 bpm. On measurements femoral length measures 1.3 cm corresponding to approximately 14 weeks 1 day +/- 1 week 3 days. The placenta is anterior. The cervix is closed. US/US OB limited IMPRESSION: Single live intrauterine fetus with a heart rate of 1 56 bpm. Limited measurements reveals a gestational age of 14 weeks 1 day. Electronically signed by: Escobar Guillen MD 04/29/2024 08:59 PM EDT Dictated By: Escobar Guillen MD Signed By: <Electronically signed by Escobar Guillen MD in OV> 04/29/242058 DD/ 26 TD/TT: 04/29/24 183 Local City Driver: [facility] [place] Note Donotuseinterpreter, Image - 04/29/2024 [place] [address] Ultrasound Report Signed Patient: Morena Mcadams#: [id number] : 2000Acct:[id number] Age/Sex: 23 / FADM Date: 04/29/24 Loc: .ED Attending Dr: Ordering Physician: Rina Cisneros Date of Service: 04/29/24 Procedure(s): OB limited Accession Number(s): [id number] cc: [facility]; Rina Cisneros EXAMINATION: US , LIMITED CLINICAL INFORMATION: Vaginal bleeding. 14 weeks . COMPARISON: Ultrasound of the 03/19/2024 TECHNIQUE: Transabdominal imaging of pelvis was performed. FINDINGS: There is a single live intrauterine fetus in cephalic position with a heart rate of 1 56 bpm. On measurements femoral length measures 1.3 cm corresponding to approximately 14 weeks 1 day +/- 1 week 3 days. The placenta is anterior. The cervix is closed. US/US OB limited IMPRESSION: Single live intrauterine fetus with a heart rate of 1 56 bpm. Limited measurements reveals a gestational age of 14 weeks 1 day. Electronically signed by: Escobar Guillen MD 04/29/2024 08:59 PM EDT Dictated By: Escobar Guillen MD Signed By: <Electronically signed by Escobar Guillen MD in OV> 04/29/242058 DD/ 26 TD/TT: 04/29/24 183 Local City Driver: [facility] External Provider IMG OB US PROCEDURES Edited Result - Final * SARS-CoV-2 RNA, Influenza A/B, and RSV RNA, Ql NAAT (04/29/2024 6:26 PM EDT) Influenza A PCR NEGATIVE Negative [facility] Influenza B PCR NEGATIVE Negative [facility] Resp Syncy Virus RNA Qual PCR NEGATIVE Negative [facility] SARS COV2 PCR NEGATIVE Negative [facility] Comment:All test results mus t be correlated with clinical findings.Negative results do not preclude SARS-CoV2, influenza Avirus, influenza B virus and/or RSV infectionand should not be used as the sole basis for treatment orother patient management decisions. Negative results must becombined with clinical observations, patient history, andepidemiological information.This test has not been evaluated for monitoring treatment ofinfection.This test has been authorized by the FDA under an EmergencyUse Authorization (EUA) for use by authorized laboratories.Testing performed on the [employer] GeneXpert utilizingreal-time RT-PCR.All SARS CoV2 and positive influenza A/B results arereported to [facility]. 04/29/2024 6:26 PM EDT 04/29/2024 6:31 PM EDT Generic External Data Provider LAB MICROBIOLOGY - GENERAL ORDERABLES Final Result [facility] [address] [place] [address] [phone] * hCG, Total, Quantitative (04/29/2024 6:26 PM EDT) HCG Quantitative 55,881 mIU/mL [facility] Comment:Weeks post LMP Appro ximate hCG(Last Menstrual Period) Range (mIU/ml)3 - 4 weeks 9 - 1304 - 5 weeks 75 - 2,6005 - 6 weeks 850 - 20,8006 - 7 weeks 4000 - 100,2007 - 12 weeks 11,500 - 289,04686 - 16 weeks 18,300 - 137,05763 - 29 weeks (2nd trimester) 1,400 - 53,24915 - 41 weeks (3rd trimester) 940 - 60,000The Reynolds B- hCG assay is used for the early detection ofpregnancy; it cannot be used to diagnose any conditionunrelated to . If a B-hCG level is not supportedby the clinical evidence, results should be confirmed by analternative method (qualitative urine hCG, for example). 04/29/2024 6:26 PM EDT 04/29/2024 6:31 PM EDT Generic External Data Provider LAB BLOOD ORDERAB LES Final Result Performing Organization Address City/[facility]/ZIP Co de Phone Number [facility] [address] [place] [address] [phone] * ABO Group And RH Type (04/29/2024 6:26 PM EDT) Blood Type AP [facility] Comment:RH IMMUNE GLOBULIN I NDICATED: NO 04/29/2024 6:26 PM EDT 04/29/2024 6:32 PM EDT Generic External Data Provider LAB BLOOD BANK TE ST ORDERABLES Final Result Performing Organization Address [facility]/ZIP Co de Phone Number [facility] [address] [place] [address] [phone] * Magnesium (04/29/2024 6:26 PM EDT) Magnesium 1.9 1.6 - 2.6 mg/dL [facility] 04/29/2024 6:26 PM EDT 04/29/2024 6:31 PM EDT us Generic External Data Provider LAB BLOOD ORDERAB LES Final Result [facility] [address] [place] [phone] * Basic Metabolic Panel (04/29/2024 6:26 PM EDT) Sodium 137 135 - 145 mmol/L [facility] Potassium 3.8 3.3 - 5.1 mmol/L [facility] Chloride 106 96 - 108 mmol/L [facility] Carbon Dioxide 23 22 - 29 mmol/L [facility] Anion Gap 12 12 - 20 [facility] Urea Nitrogen (BUN) 9 9 - 16 mg/dL [facility] Creatinine, Serum 0.64 0.5 - 1.4 mg/dL [facility] Creatinine Clr Calc Pharmacy 125.3 [facility] Comment:Provided height and weight: 157.48 cm,72.575 kg.eGFR (calculated from the MDRD study equation) and eCrCl(calculated from the Cockcroft-Gault equation) are based ondifferent parameters and may not yield comparable results.If eCrCl result is absurd, please check patient'sheight/weight. Estimated Glomerular Filt Rate >60 [facility] Comment:NOTE: For -Am erican individuals, multiply the result by 1.210.Chronic Kidney Disease: Estimated GFR < 60 mL/min/1.16x0Rfrqxn Kidney Disease: Estimated GFR < 15 mL/min/1.73m2 Glucose 88 60 - 115 mg/dL [facility] Calcium 9.0 8.4 - 10.2 mg/dL [facility] 04/29/2024 6:26 PM EDT 04/29/2024 6:31 PM EDT us Generic External Data Provider LAB BLOOD ORDERAB LES Final Result Performing Organization Address [facility] Co de Phone Number [facility] [address] [place] [phone] * Hepatic Function Panel (04/29/2024 6:26 PM EDT) [facility] Bilirubin, Total 0.1 0.0 - 1.0 mg/dL [facility] Bilirubin, Direct <0.2 0.0 - 0.5 mg/dL [facility] Aspartate Amino Transferase 11 5 - 31 U/L [facility] Alanine Aminotransferase 13 0 - 31 U/L [facility] Total Protein 6.7 6.5 - 8.0 g/dL [facility] Albumin Level 3.6 3.5 - 5.0 g/dL [facility] Alkaline Phosphatase 51 39 - 117 U/L [facility] 04/29/2024 6:26 PM EDT 04/29/2024 6:31 PM EDT Generic External Data Provider LAB BLOOD ORDERAB LES Final Result Performing Organization Address [facility] de Phone Number [facility] [address] [place] [phone] * (ABNORMAL) CBC auto differential (04/29/2024 6:26 PM EDT) [facility] White Blood Count 8.8 4.8 - 10.8 X10*3/uL [facility] Red Blood Count 4.02(L) 4.20 - 5.50 X10*6/uL [facility] Hemoglobin 10.9(L) 12.0 - 16.0 g/dl [facility] Hematocrit 32.4(L) 37.0 - 47.0 % [facility] Mean Corpuscular Volume 80.6 80.0 - 98.0 fL [facility] Mean Corpuscular Hemoglobin 27.1 27.0 - 33.0 pg [facility] Mean Corpuscular HGB Conc 33.6 31.0 - 35.0 g/dl [facility] Red Cell Distribution Width 14.4 11.0 - 16.0 % [facility] Platelet Count 209 160 - 400 X10*3/uL [facility] Mean Platelet Volume 9.1(L) 9.4 - 12.3 fL [facility] Neutrophils Percent Auto 66.9 45 - 73 % [facility] Imm Gran Pct Auto 0.6(H) 0.0 - 0.4 % [facility] Lymphocytes Percent Auto 24.5 20 - 40 % [facility] Monocytes Percent Auto 6.5 2 - 11 % [facility] Eosinophils Percent Auto 1.3 0 - 4 % [facility] Basophils Percent Auto 0.2 0 - 2 % [facility] NRBC Pct Auto 0.0 0.0 - 0.2 /100WBC [facility] Neutrophils Absolute Auto 5.9 2.0 - 8.3 x10*3/uL [facility] Imm Gran Abs Auto 0.05(H) 0.00 - 0.03 X10*3/uL [facility] Lymphocytes Absolute Auto 2.2 1.2 - 4.9 X10*3/uL [facility] Monocytes Absolute Auto 0.6 0.1 - 1.2 X10*3/uL [facility] Eosinophils Absolute Auto 0.1 0.0 - 0.4 X10*3/uL [facility] Basophils Absolute Auto 0.0 0.0 - 0.2 X10*3/uL [facility] NRBC Abs Auto 0.000 0.0 - 0.012 X10*3/uL [facility] 04/29/2024 6:26 PM EDT 04/29/2024 6:31 PM EDT us Generic External Data Provider LAB BLOOD ORDERAB LES Final Result [facility] [address] [place] [phone] [phone] * Culture, Urine, Routine (04/29/2024 12:00 AM EDT) Urine Urine specimen obtained by clean catch procedure / Unknown 04/29/2024 04/29/2024 Comment:UACC Narrative [facility] - 05/01/2024 12:53 PM EDT Lactobacillus species Quant > 100,000 cfu/mL Susc N/A Susceptibility not routinely performed on this isolate. Specimen Source: Urine clean catch us Generic External Data Provider LAB MICROBIOLOGY - GENERAL ORDERABLES Final Result [facility] [address] [place] [phone] * HM PAP/HPV (03/26/2024 3:48 PM EDT) us Historical Provider MD HEALTH MAINTENANCE Final Result documented in this encounter Visit Diagnoses Not on filedocumented in this encounter Care Teams Math Professor Relationship Specialty Start Date End Date Atiya Ruelas NP [address] [place] [address] PCP - General Family Medicine 04/22/23 05/18/24 Lisandra Machado NP [address] [place] [address] PCP - General Family Medicine 05/19/24 Shanell Ariza Tripe Scraper 04/30/24 documented as of this encounter
[2025-01-29 03:40] LABS: HBS Num1 12.28 mIU/mL (0-7.99); HBc Num1 0.07 S/CO (0.00-0.79); HBsAGNum1 0.43 S/CO (0.00-0.99); Hepatitis B Surface Antigen Negative (Negative); ~Hepatitis B Surface Antibody REACTIVE (Nonreactive)
[2025-01-31 16:49] LABS: TS Negative Control Passed; TS Panel A 1; TS Panel B 1; TS Positive Control Passed; TSpotTB Negative (Negative)
== END 2025-01-28 13:09 | disposition home or self-care (01) ==
LOC: HO.HHCL 13:08
PROVIDERS: PCP Nurse Practitioner Family; Visit Provider Nurse Practitioner Family
DX: Z01.84 Encounter for antibody response examination (principal); Z11.1 Encounter for screening for respiratory tuberculosis
CPT/HCPCS: 36415; 86481; 86704; 86706; 87340

== ENCOUNTER 2025-03-02 15:47 | Outpatient (REF) | payer MEDICAID, SELFPAY ==
--- NOTE | ~2025-03-02 | US_ITS ---
EXAMINATION: US PELVIS CLINICAL INFORMATION: Left lower quadrant pain, irregular menses COMPARISON: May 14, 2023 TECHNIQUE: Ultrasound of the pelvis is performed using both transabdominal and transvaginal transducers along with Doppler. Transvaginal imaging is performed due to inadequate visualization transabdominally. FINDINGS: Uterus: The uterus is anteverted and measures 7.6 x 2.6 x 3.8 cm. The double wall endometrial thickness is 7 mm. The uterus is smooth in contour and has normal myometrial echogenicity. No visible fibroid. Adnexa: Both ovaries are visualized. There is normal color flow to the adnexa. There is no ovarian torsion. There is no pelvic ascites or fluid collection. Right ovary measures 2.3 x 1.0 x 2.4 cm. Left ovary measures 3.5 x 2.2 x 2.3 cm. There is a simple paraovarian cyst measuring 1.0 cm Long axis , previously 1.6 cm US/US pelvic and transvaginal IMPRESSION: Unremarkable pelvic ultrasound Electronically signed by: Arsalan Roger MD 03/02/2025 04:49 PM EDT
--- OUTSIDE RECORDS SUMMARY | 2025-03-02 16:29 | XMS_ITS | Encounter Summary ---
Author Organization [employer] Address [address] [place] [address] Care Team Providers Care Rubber Press Operator Name Role Phone Atiya Ruelas CONSTRUCTION EQUIPMENT MECHANIC Primary Care Provider [phone] Lisandra Machado CONSTRUCTION EQUIPMENT MECHANIC Primary Care Provider [phone] Encounter Details Date Type Department Care Team ([facility] st Contact Info) Description 04/29/2024 Orders Only [facility] [address] [place], [place] [phone] Provider, MD Liza Social History Tobacco Use [...] (04/29/2024 7:45 PM EDT) Color Urine Yellow [facility] Appearance Urine Clear [facility] PH 6.0 5.0 - 9.0 [facility] Glucose Urine UA Negative Negative mg/dL [facility] Urine Blood Negative Negative [facility] Specific [place] - Urine <=1.005 1.005 - 1.025 [facility] Urine Protein Negative Neg-Trace mg/dL [facility] Urine Ketones Negative Negative mg/dL [facility] Nitrite Urine Negative Negative [facility] Leukocyte Esterase Urine Small (1+)(A) Negative [facility] RBC Urine 0-2 0 - 2 /HPF [facility] Urine WBC 6-10(A) 0 - 5 /HPF [facility] Urine Squamous Epithelial Cell 6-10 0 - 2 /HPF [facility] Urine Bacteria Trace None Seen [facility] Hyaline Casts, Urine 0-2 0 - 2 /LPF [facility] 04/29/2024 7:45 PM EDT 04/29/2024 7:49 PM EDT Narrative [facility] - 04/29/2024 8:27 PM EDT [id number], Clean Catch us Generic External Data Provider LAB URINE ORDERAB LES Final Result Performing Organization Address City/State/[facility] Co de Phone Number [facility] [address] [place] [phone] * US OB Limited 1+ Fetuses (04/29/2024 6:27 PM EDT) Anatomical Region Laterality Modality Body Ultrasound 04/29/2024 6:27 PM EDT Narrative 04/29/2024 9:02 PM EDT [address] [address] Ultrasound Report Signed Patient: Deborah Mcadams MR#: [id number] : 2000 Acct:[id number] Age/Sex: 23 / F ADM Date: 04/29/24 Loc: HO.ED Attending Dr: Ordering Physician: Rina Cisneros Date of Service: 04/29/24 Procedure(s): US OB limited Accession Number(s): [id number] cc: [facility]; Rina Cisneros EXAMINATION: US , LIMITED [...] OV> 04/29/242058 DD/ 26 TD/TT: 04/29/24 183 Workforce Management Coordinator: [facility] Procedure Note Donotuseinterpreter, Image - 04/29/2024 [place] [address] Ultrasound Report Signed Patient: Morena Mcadams#: [id number] : 2000Acct:[id number] Age/Sex: 23 / FADM Date: 04/29/24 Loc: .ED Attending Dr: Ordering Physician: Rina Cisneros Date of Service: 04/29/24 Procedure(s): OB limited Accession Number(s): [id number] cc: [facility]; Rina Cisneros EXAMINATION: US , LIMITED [...] OV> 04/29/242058 DD/ 26 TD/TT: 04/29/24 183 Workforce Management Coordinator: [facility] External Provider IMG OB US PROCEDURES Edited Result - Final * SARS-CoV-2 RNA, Influenza A/B, and RSV RNA, Ql NAAT (04/29/2024 6:26 PM EDT) Influenza A PCR NEGATIVE Negative [facility] Influenza B PCR NEGATIVE Negative [facility] Resp Syncy Virus RNA Qual PCR NEGATIVE Negative [facility] SARS COV2 PCR NEGATIVE Negative [facility] Comment:All test results mus t be [...] use by authorized laboratories.Testing performed on the [employer] GeneXpert utilizingreal-time RT-PCR.All SARS CoV2 and positive influenza A/B results arereported to [facility]. 04/29/2024 6:26 PM EDT 04/29/2024 6:31 PM EDT Generic External Data Provider LAB MICROBIOLOGY - GENERAL ORDERABLES Final Result [facility] [address] [place] [phone] * hCG, Total, Quantitative (04/29/2024 6:26 PM EDT) HCG Quantitative 55,881 mIU/mL [facility] Comment:Weeks post LMP Appro ximate hCG(Last Menstrual Period) Range (mIU/ml)3 - 4 weeks 9 - 1304 - 5 weeks 75 - 2,6005 - 6 weeks 850 - 20,8006 - 7 weeks 4000 - 100,2007 - 12 weeks 11,500 - 289,18248 - 16 weeks 18,300 - 137,36173 - 29 weeks (2nd trimester) 1,400 - 53,42813 - 41 weeks (3rd trimester) 940 - [...] ORDERAB LES Final Result Performing Organization Address City/[facility]/ZIP Co de Phone Number [facility] [address] [place] [phone] * ABO Group And RH Type (04/29/2024 6:26 PM EDT) Blood Type AP [facility] Comment:RH IMMUNE GLOBULIN I NDICATED: NO 04/29/2024 6:26 PM EDT 04/29/2024 6:32 PM EDT Generic External Data Provider LAB BLOOD BANK TE ST ORDERABLES Final Result Performing Organization Address [facility]/ZIP Co de Phone Number [facility] [address] [place] [phone] * Magnesium (04/29/2024 6:26 PM EDT) Magnesium 1.9 1.6 - 2.6 mg/dL [facility] 04/29/2024 6:26 PM EDT 04/29/2024 6:31 PM EDT us Generic External Data Provider LAB BLOOD ORDERAB LES Final Result [facility] [address] [place] [phone] * Basic Metabolic Panel (04/29/2024 6:26 PM EDT) Sodium 137 135 - 145 mmol/L [facility] Potassium 3.8 3.3 - 5.1 mmol/L [facility] Chloride 106 96 - 108 mmol/L [facility] Carbon Dioxide 23 22 - 29 mmol/L [facility] Anion Gap 12 12 - 20 [facility] Urea Nitrogen (BUN) 9 9 - 16 mg/dL [facility] Creatinine, Serum 0.64 0.5 - 1.4 mg/dL [facility] Creatinine Clr Calc Pharmacy 125.3 [facility] Comment:Provided height and weight: 157.48 cm,72.575 kg.eGFR (calculated from the MDRD study equation) and eCrCl(calculated from the Cockcroft-Gault equation) are based ondifferent parameters and may not yield comparable results.If eCrCl result is absurd, please check patient'sheight/weight. Estimated Glomerular Filt Rate >60 [facility] Comment:NOTE: For -Am erican individuals, multiply the result by 1.210.Chronic Kidney Disease: Estimated GFR < 60 mL/min/1.71e0Vqhlnr Kidney Disease: Estimated GFR < 15 mL/min/1.73m2 Glucose 88 60 - 115 mg/dL [facility] Calcium 9.0 8.4 - 10.2 mg/dL [facility] 04/29/2024 6:26 PM EDT 04/29/2024 6:31 PM EDT us Generic External Data Provider LAB BLOOD ORDERAB LES Final Result Performing Organization Address [facility] Co de Phone Number [facility] [address] [place] [phone] * Hepatic Function Panel (04/29/2024 6:26 PM EDT) [facility] Bilirubin, Total 0.1 0.0 - 1.0 mg/dL [facility] Bilirubin, Direct <0.2 0.0 - 0.5 mg/dL [facility] Aspartate Amino Transferase 11 5 - 31 U/L [facility] Alanine Aminotransferase 13 0 - 31 U/L [facility] Total Protein 6.7 6.5 - 8.0 g/dL [facility] Albumin Level 3.6 3.5 - 5.0 g/dL [facility] Alkaline Phosphatase 51 39 - 117 U/L [facility] 04/29/2024 6:26 PM EDT 04/29/2024 6:31 PM EDT Generic External Data Provider LAB BLOOD ORDERAB LES Final Result Performing Organization Address [facility] de Phone Number [facility] [address] [place] [phone] * (ABNORMAL) CBC auto differential (04/29/2024 6:26 PM EDT) [facility] White Blood Count 8.8 4.8 - 10.8 X10*3/uL [facility] Red Blood Count 4.02(L) 4.20 - 5.50 X10*6/uL [facility] Hemoglobin 10.9(L) 12.0 - 16.0 g/dl [facility] Hematocrit 32.4(L) 37.0 - 47.0 % [facility] Mean Corpuscular Volume 80.6 80.0 - 98.0 fL [facility] Mean Corpuscular Hemoglobin 27.1 27.0 - 33.0 pg [facility] Mean Corpuscular HGB Conc 33.6 31.0 - 35.0 g/dl [facility] Red Cell Distribution Width 14.4 11.0 - 16.0 % [facility] Platelet Count 209 160 - 400 X10*3/uL [facility] Mean Platelet Volume 9.1(L) 9.4 - 12.3 fL [facility] Neutrophils Percent Auto 66.9 45 - 73 % [facility] Imm Gran Pct Auto 0.6(H) 0.0 - 0.4 % [facility] Lymphocytes Percent Auto 24.5 20 - 40 % [facility] Monocytes Percent Auto 6.5 2 - 11 % [facility] Eosinophils Percent Auto 1.3 0 - 4 % [facility] Basophils Percent Auto 0.2 0 - 2 % [facility] NRBC Pct Auto 0.0 0.0 - 0.2 /100WBC [facility] Neutrophils Absolute Auto 5.9 2.0 - 8.3 x10*3/uL [facility] Imm Gran Abs Auto 0.05(H) 0.00 - 0.03 X10*3/uL [facility] Lymphocytes Absolute Auto 2.2 1.2 - 4.9 X10*3/uL [facility] Monocytes Absolute Auto 0.6 0.1 - 1.2 X10*3/uL [facility] Eosinophils Absolute Auto 0.1 0.0 - 0.4 X10*3/uL [facility] Basophils Absolute Auto 0.0 0.0 - 0.2 X10*3/uL [facility] NRBC Abs Auto 0.000 0.0 - 0.012 X10*3/uL [facility] 04/29/2024 6:26 PM EDT 04/29/2024 6:31 PM EDT us Generic External Data Provider LAB BLOOD ORDERAB LES Final Result [facility] [address] [place] [phone] * Culture, Urine, Routine (04/29/2024 12:00 AM EDT) Urine Urine specimen obtained by clean catch procedure / Unknown 04/29/2024 04/29/2024 Comment:UACC Narrative [facility] - 05/01/2024 12:53 PM EDT Lactobacillus species Quant > 100,000 cfu/mL Susc N/A Susceptibility not routinely performed on this isolate. Specimen Source: Urine clean catch us Generic External Data Provider LAB MICROBIOLOGY - GENERAL ORDERABLES Final Result [facility] [address] [place] [phone] * HM PAP/HPV (03/26/2024 3:48 PM EDT) us Historical Provider HEALTH MAINTENANCE Final Result documented in this encounter Visit Diagnoses Not on filedocumented in this encounter Care Teams Rubber Press Operator Relationship Specialty Start Date End Date Atiya Ruelas NP [address] [place] [address] PCP - General Family Medicine 04/22/23 05/18/24 Lisandra Machado NP [address] [place] [address] PCP - General Family Medicine 05/19/24 Shanell Ariza Diploma Maker 04/30/24 documented as of this encounter
[2025-03-02 16:42] LABS: MANUAL DIFF FLAG NO
[2025-03-02 16:53] LABS: Hematocrit 39.9 % (37.0-47.0); Hemoglobin 13.4 g/dl (12.0-16.0); Imm Gran Abs Auto 0.01 X10*3/uL (0.00-0.03); Imm Gran Pct Auto 0.1 % (0.0-0.4); Lymphocytes Absolute Auto 3.1 X10*3/uL (1.2-4.9); Mean Corpuscular HGB Conc 33.6 g/dl (31.0-35.0); Mean Corpuscular Hemoglobin 26.5 pg (27.0-33.0); Mean Corpuscular Volume 78.9 fL (80.0-98.0); NRBC Abs Auto 0.000 X10*3/uL (0.0-0.012); NRBC Pct Auto 0.0 /100WBC (0.0-0.2); Platelet Count 282 X10*3/uL (160-400); Red Blood Count 5.06 X10*6/uL (4.20-5.50); White Blood Count 7.4 X10*3/uL (4.8-10.8)
[2025-03-02 17:20] LABS: Iron 46 mcg/dL (30-160); Percent Iron Saturation 17 % (15-50); Total Iron Binding Capacity 278 mcg/dL (228-428); Unsaturated Iron Binding 232 ug/dL
[2025-03-02 18:19] LABS: Free T4 (Free Thyroxine) 1.46 ng/dL (0.71-1.85)
== END 2025-03-02 15:48 | disposition home or self-care (01) ==
LOC: HO.US 15:47
PROVIDERS: Visit Provider Nurse Practitioner Family
DX: R10.32 Left lower quadrant pain (principal); R53.83 Other fatigue; N92.6 Irregular menstruation, unspecified
CPT/HCPCS: 36415; 76830; 76856; 83540; 84439; 84443; 85025

== ENCOUNTER → 2025-03-02 15:48 | Outpatient (BNV) | payer MEDICAID, SELFPAY | PROVIDERS: Visit Provider Radiology Diagnostic Radiology | DX: N83.292 Other ovarian cyst, left side (principal) | CPT/HCPCS: 76830; 76856 ==

== ENCOUNTER 2025-05-25 11:02 | Outpatient (AMB) | payer MEDICAID, SELFPAY ==
--- NOTE | 2025-05-25 11:12 | A.OFFVIS_ITS ---
Vital Signs 05/25/25 11:14 Height 5 ft 2 in Weight 163 lb BMI 29.8 BP 122/72 Intake Visit Reasons: annual/cotest Restaurant General Manager Required: Yes Restaurant General Manager Language: Technology Adoption Manager Services: Restaurant General Manager Present (in person) Restaurant General Manager Name: Marissa AVITIA Information Interpreted: non-clinical & clinical Nursing Center Tutor: Nursing Center Tutor Present (Marissa AVITIA) Accompanied by: Self / Same As Patient Allergies Penicillins (PENICILLINS) Allergy (Severe, Verified 05/25/25 11:16) ANGIOEDEMA Is last menstrual period known: Yes Last menstrual period: 05/10/25 HPI Comments Details: Presenting for annual exam. No complaints. Last Pap was in 02/01 and was negative [facility] Medical History COVID-19 Endometriosis Complex cyst of left ovary Complex cyst of both ovaries Asthma Surgical History Hx of section H/O laparoscopy (12/06/22) Family History Maternal Grandmother Uterine cancer Maternal Aunt Cancer Social History Alcohol intake: never Sexual orientation: Straight/Heterosexual Gender identity: Female Female Reproductive History Menstrual Age of Menarche: 7 Duration of menses: 8-10 days Date of last menstrual period: 05/10/25 control method: none Total pregnancies: 2 Full term: 1 Number of Living Children: 1 Ectopics: 1 Date of last pap smear: 01/18/22 Review of Systems Const All systems reviewed & are unremarkable except as noted in HPI and below Card Reports as per HPI Resp Reports as per HPI GI Reports as per HPI and Reports no additional complaints Reports as per HPI Physical Exam Vital Signs: Last Vital Signs BP 122/72 05/25/25 11:14 BMI result Body Mass Index 29.8 Const General: cooperative, healthy appearing and comfortable Chest Chest palpation & inspection: normal inspection of the chest and normal palpation of entire chest wall Breast/axilla inspection: normal inspection of the breasts and normal inspection of the axillae Breast/axilla palpation: normal palpation of the breasts, normal palpation of the axillae and no axillary lymphadenopathy Resp Effort & Inspection: normal respiratory effort Auscultation: clear to auscultation bilaterally Percussion: percussion normal Cardio Palpation: normal PMI Rate: regular rate Rhythm: regular rhythm Heart sounds: no murmurs and no rubs Peripheral pulses: Peripheral pulses 2+ throughout GI Inspection: Yes normal to inspection Palpation (GI): Soft to palpation, nontender, no guarding, not rigid and No hepatosplenomegaly present Percussion: Yes normal to percussion Auscultation: normal bowel sounds Rectal Exam - Female: deferred General: Yes bladder normal to palpation External Female Exam: No lesion Speculum Exam - Vagina: normal appearance of the vagina, normal palpation, normal vaginal discharge and not erythematous Speculum Exam - Cervix: normal appearance of the cervix and normal palpation Bimanual exam- vagina & uterus: normal bimanual exam, normal palpation, uterine size normal, bladder normal to palpation, consistency normal and normal palpation Bimanual Exam- Adnexa, other: normal adnexae, no masses and no tenderness Assessment & Plan Assessment & Plan (1) Well woman exam: Code(s): Z01.419 - Encounter for gynecological examination (general) (routine) without abnormal findings Category: Medical Plan: Pap taken. Counseled the patient about the recommended dietary allowance of 1000 mg of Calcium & 600 IU of vitamin D. The patient was instructed to perform monthly self-breast exams and to schedule an annual exam in a year; All questions answered and the patient verbalized understanding. Instructed the patient to schedule annual exam in a year Coding Level of Care Code Est Pt Prev Care 18-39y(32657) Diagnoses Well woman exam Z01.419
[2025-05-25 11:14] VITALS: BP 122/72; BMI 29.8
--- OUTSIDE RECORDS SUMMARY | 2025-05-25 13:37 | XMS_ITS | Encounter Summary ---
Author Organization [employer] Address [address] [place] [address] Care Team Providers Care Lime Puller Name Role Phone Atiya Ruelas TRAVELING CONSTRUCTION SUPERINTENDENT Primary Care Provider [phone] Lisandra Machado TRAVELING CONSTRUCTION SUPERINTENDENT Primary Care Provider [phone] Encounter Details Date Type Department Care Team ([facility] st Contact Info) Description 04/29/2024 Orders Only [facility] MEDIC[facility] [address] [place], [place] [phone] Provider, MD Liza Social History Tobacco Use [...] as of this encounter Plan of Treatment Upcoming Encounters Date Type Department Care Team (Late st Contact Info) Description 07/05/2025 10:00 AM EST Office Visit [facility] OPTOMETRY [address] [place] [address] Tarka, Antonia, OD [address] [place] [address] 07/22/2025 10:15 AM EST Office Visit [facility] [address] [place] [address] Lisandra Machado, TRAVELING CONSTRUCTION SUPERINTENDENT [address] [place] [address] documented as of this encounter Procedures Procedure [...] (04/29/2024 7:45 PM EDT) Color Urine Yellow [facility] Appearance Urine Clear [facility] PH 6.0 5.0 - 9.0 [facility] Glucose Urine UA Negative Negative mg/dL [facility] Urine Blood Negative Negative [facility] Specific Fork - Urine <=1.005 1.005 - 1.025 [facility] Urine Protein Negative Neg-Trace mg/dL [facility] Urine Ketones Negative Negative mg/dL [facility] Nitrite Urine Negative Negative [facility] Leukocyte Esterase Urine Small (1+)(A) Negative [facility] RBC Urine 0-2 0 - 2 /HPF [facility] Urine WBC 6-10(A) 0 - 5 /HPF [facility] Urine Squamous Epithelial Cell 6-10 0 - 2 /HPF [facility] Urine Bacteria Trace None Seen [facility] Hyaline Casts, Urine 0-2 0 - 2 /LPF [facility] 04/29/2024 7:45 PM EDT 04/29/2024 7:49 PM EDT Narrative [facility] - 04/29/2024 8:27 PM EDT [id number], Clean Catch us Generic External Data Provider LAB URINE ORDERAB LES Final Result [facility] [address] [place] [address] [phone] * US OB Limited 1+ Fetuses (04/29/2024 6:27 PM EDT) Anatomical Region Laterality Modality Body Ultrasound 04/29/2024 6:27 PM EDT Narrative 04/29/2024 9:02 PM EDT [address] [address] Ultrasound Report Signed Patient: Deborah Mcadams MR#: [id number] : 2000 Acct:[id number] Age/Sex: 23 / F ADM Date: 04/29/24 Loc: HO.ED Attending Dr: Ordering Physician: Rina Cisneros Date of Service: 04/29/24 Procedure(s): US OB limited Accession Number(s): [id number] cc: [facility]; Rina Cisneros EXAMINATION: US , LIMITED [...] Escobar Guillen MD in OV> 04/29/242058 DD/ TD/TT: 04/29/24 1833 Photographic Restorer: [facility] Procedure Note Donotuseinterpreter, Image - 04/29/[address] [address] Ultrasound Report Signed Patient: Lalo McadamsR#: [id number] : 2000Acct:[id number] Age/Sex: 23 / FADM Date: 04/29/24 Loc: HO.ED Attending Dr: Ordering Physician: Rina Cisneros Date of Service: 04/29/24 Procedure(s): US OB limited Accession Number(s): [id number] cc: [facility]; Rina Cisneros EXAMINATION: US , LIMITED [...] OV> 04/29/242058 DD/ 26 TD/TT: 04/29/24 183 Photographic Restorer: [facility] External Provider IMG OB US PROCEDURES Edited Result - Final * SARS-CoV-2 RNA, Influenza A/B, and RSV RNA, Ql NAAT (04/29/2024 6:26 PM EDT) Influenza A PCR NEGATIVE Negative [facility] Influenza B PCR NEGATIVE Negative [facility] Resp Syncy Virus RNA Qual PCR NEGATIVE Negative [facility] SARS COV2 PCR NEGATIVE Negative [facility] Comment:All test results mus t [...] use by authorized laboratories.Testing performed on the [employer] GeneXpert utilizingreal-time RT-PCR.All SARS CoV2 and positive influenza A/B results arereported to [facility]. 04/29/2024 6:26 PM EDT 04/29/2024 6:31 PM EDT Generic External Data Provider LAB MICROBIOLOGY - GENERAL ORDERABLES Final Result Performing Organization Address [facility] Co de Phone Number [facility] [address] [place] [phone] * hCG, Total, Quantitative (04/29/2024 6:26 PM EDT) HCG Quantitative 55,881 mIU/mL [facility] Comment:Weeks post LMP Appro ximate hCG(Last Menstrual Period) Range (mIU/ml)3 - 4 weeks 9 - 1304 - 5 weeks 75 - 2,6005 - 6 weeks 850 - 20,8006 - 7 weeks 4000 - 100,2007 - 12 weeks 11,500 - 289,33027 - 16 weeks 18,300 - 137,93979 - 29 weeks (2nd trimester) 1,400 - 53,39029 - 41 weeks (3rd trimester) 940 - [...] ORDERAB LES Final Result Performing Organization Address [facility] Co de Phone Number [facility] [address] [place] [phone] * ABO Group And RH Type (04/29/2024 6:26 PM EDT) Blood Type AP [facility] Comment:RH IMMUNE GLOBULIN I NDICATED: NO 04/29/2024 6:26 PM EDT 04/29/2024 6:32 PM EDT Generic External Data Provider LAB BLOOD BANK TE ST ORDERABLES Final Result Performing Organization Address [facility] Co de Phone Number [facility] [address] [place] [phone] * Magnesium (04/29/2024 6:26 PM EDT) Pathologist [facility] Magnesium 1.9 1.6 - 2.6 mg/dL [facility] 04/29/2024 6:26 PM EDT 04/29/2024 6:31 PM EDT Generic External Data Provider LAB BLOOD ORDERAB LES Final Result Performing Organization Address [facility] de Phone Number [facility] [address] [place] [phone] * Basic Metabolic Panel (04/29/2024 6:26 PM EDT) Pathologist [facility] Sodium 137 135 - 145 mmol/L [facility] Potassium 3.8 3.3 - 5.1 mmol/L [facility] Chloride 106 96 - 108 mmol/L [facility] Carbon Dioxide 23 22 - 29 mmol/L [facility] Anion Gap 12 12 - 20 [facility] Urea Nitrogen (BUN) 9 9 - 16 mg/dL [facility] Creatinine, Serum 0.64 0.5 - 1.4 mg/dL [facility] Creatinine Clr Calc Pharmacy 125.3 [facility] Comment:Provided height and weight: 157.48 cm,72.575 kg.eGFR (calculated from the MDRD study equation) and eCrCl(calculated from the Cockcroft-Gault equation) are based ondifferent parameters and may not yield comparable results.If eCrCl result is absurd, please check patient'sheight/weight. Estimated Glomerular Filt Rate >60 [facility] Comment:NOTE: For -Am erican individuals, multiply the result by 1.210.Chronic Kidney Disease: Estimated GFR < 60 mL/min/1.42u7Rhcwnq Kidney Disease: Estimated GFR < 15 mL/min/1.73m2 Glucose 88 60 - 115 mg/dL [facility] Calcium 9.0 8.4 - 10.2 mg/dL [facility] 04/29/2024 6:26 PM EDT 04/29/2024 6:31 PM EDT Generic External Data Provider LAB BLOOD ORDERAB LES Final Result Performing Organization Address [facility] de Phone Number [facility] [address] [place] [phone] * Hepatic Function Panel (04/29/2024 6:26 PM EDT) Bilirubin, Total 0.1 0.0 - 1.0 mg/dL [facility] Bilirubin, Direct <0.2 0.0 - 0.5 mg/dL [facility] Aspartate Amino Transferase 11 5 - 31 U/L [facility] Alanine Aminotransferase 13 0 - 31 U/L [facility] Total Protein 6.7 6.5 - 8.0 g/dL [facility] Albumin Level 3.6 3.5 - 5.0 g/dL [facility] Alkaline Phosphatase 51 39 - 117 U/L [facility] 04/29/2024 6:26 PM EDT 04/29/2024 6:31 PM EDT Generic External Data Provider LAB BLOOD ORDERAB LES Final Result Performing Organization Address [facility] Co de Phone Number [facility] [address] [place] [phone] * (ABNORMAL) CBC auto differential (04/29/2024 6:26 PM EDT) White Blood Count 8.8 4.8 - 10.8 X10*3/uL [facility] Red Blood Count 4.02(L) 4.20 - 5.50 X10*6/uL [facility] Hemoglobin 10.9(L) 12.0 - 16.0 g/dl [facility] Hematocrit 32.4(L) 37.0 - 47.0 % [facility] Mean Corpuscular Volume 80.6 80.0 - 98.0 fL [facility] Mean Corpuscular Hemoglobin 27.1 27.0 - 33.0 pg [facility] Mean Corpuscular HGB Conc 33.6 31.0 - 35.0 g/dl [facility] Red Cell Distribution Width 14.4 11.0 - 16.0 % [facility] Platelet Count 209 160 - 400 X10*3/uL [facility] Mean Platelet Volume 9.1(L) 9.4 - 12.3 fL [facility] Neutrophils Percent Auto 66.9 45 - 73 % [facility] Imm Gran Pct Auto 0.6(H) 0.0 - 0.4 % [facility] Lymphocytes Percent Auto 24.5 20 - 40 % [facility] Monocytes Percent Auto 6.5 2 - 11 % [facility] Eosinophils Percent Auto 1.3 0 - 4 % [facility] Basophils Percent Auto 0.2 0 - 2 % [facility] NRBC Pct Auto 0.0 0.0 - 0.2 /100WBC [facility] Neutrophils Absolute Auto 5.9 2.0 - 8.3 x10*3/uL [facility] Imm Gran Abs Auto 0.05(H) 0.00 - 0.03 X10*3/uL [facility] Lymphocytes Absolute Auto 2.2 1.2 - 4.9 X10*3/uL [facility] Monocytes Absolute Auto 0.6 0.1 - 1.2 X10*3/uL [facility] Eosinophils Absolute Auto 0.1 0.0 - 0.4 X10*3/uL [facility] Basophils Absolute Auto 0.0 0.0 - 0.2 X10*3/uL [facility] NRBC Abs Auto 0.000 0.0 - 0.012 X10*3/uL [facility] 04/29/2024 6:26 PM EDT 04/29/2024 6:31 PM EDT Generic External Data Provider LAB BLOOD ORDERAB LES Final Result Performing Organization Address [facility] Co de Phone Number [facility] [address] [place] [phone] * Culture, Urine, Routine (04/29/2024 12:00 AM EDT) Urine Urine specimen obtained by clean catch procedure / Unknown 04/29/2024 04/29/2024 Comment:UACC Narrative [facility] - 05/01/2024 12:53 PM EDT Lactobacillus species Quant > 100,000 cfu/mL Susc N/A Susceptibility not routinely performed on this isolate. Specimen Source: Urine clean catch us Generic External Data Provider LAB MICROBIOLOGY - GENERAL ORDERABLES Final Result Performing Organization Address [facility] de Phone Number [facility] [address] [place] [phone] * HM PAP/HPV (03/26/2024 3:48 PM EDT) us Historical Provider HEALTH MAINTENANCE Final Result documented in this encounter Visit Diagnoses Not on filedocumented in this encounter Care Teams Lime Puller Relationship Specialty Start Date End Date Atiya Ruelas NP [address] [place] [address] PCP - General Family Medicine 04/22/23 05/18/24 Lisandra Machado NP [address] [place] [address] PCP - General Family Medicine 05/19/24 Shanell Ariza Cured Meat Packing Supervisor 04/30/24 documented as of this encounter
--- OUTSIDE RECORDS SUMMARY | 2025-05-25 13:37 | XMS_ITS | Encounter Summary ---
Author Organization [facility] Address [address] [address] Phone Care Team Providers Care Test Data Developer Name Role Phone Unknown, Unknown MD Unavailable Unavailable Lisandra Machado STREETCAR REPAIRER HELPER Primary Care Provider [phone] Encounter Details Date Type Department Care Team ([facility] st Contact Info) Description 10/23/2024 Procedure Pass [facility] L&D Procedures [address] [place] [address] Social History Tobacco Use Types Packs/Day Years Used Date Smoking Tobacco: Never Smokeless Tobacco: Never Alcohol Use Standard Drinks/Week Comments Never 0 [...] is your housing situation today? I have soniyaolinda nettles 10/21/2024 How many times have you moved [...] Orientation Straight 10/25/2021 10 :37 AM EDT documented as of this encounter Plan of Treatment Upcoming Encounters Date Type Department Care Team (Late st Contact Info) Description 05/25/2025 3:00 PM EST Office Visit [facility] [address] [place] [phone] Tiffanie Juares MD [address] [place] [phone] Jessy Smith [address] [place] [address] documented as of this encounter Visit Diagnoses Not on filedocumented in this encounter Care Teams Test Data Developer Relationship Specialty Start Date End Date Lisandra Machado NP PCP - General Nurse Practitioner 04/13/24 Unknown, Unknown, 03/29/21 documented as of this encounter Additional Source Comments The information contained in this document represents components of the legal health record. It is not the complete legal health record.[facility]
--- OUTSIDE RECORDS SUMMARY | 2025-05-25 13:37 | XMS_ITS | Encounter Summary ---
Author Organization [employer] [facility] Address [address] [place] [address] 7 [place] [address] Care Team Providers Care [employer] Name Role Phone Melani Avalos WATCH LEADER Primary Care Provider Sandi Atiya Mayen FRIT MIXER Primary Care Provider [phone] Lisandra Machado FRIT MIXER Primary Care Provider [phone] Encounter Details Date Type Department Care Team (Late Contact Info) Description 02/04/2023 Orders Only [facility] [address] [place] [phone] Provider, MD Liza Social History Tobacco Use [...] Encounters Date Type Department Care Team (Late Contact Info) Description 07/05/2025 10:00 AM EST Office Visit [facility] OPTOMETRY [address] [place] [address] Antonia White, OD [address] [place] [address] 07/22/2025 10:15 AM EST Office Visit [facility] [address] [place] [phone] Lisandra Machado NP [address] [place] [address] documented as of this encounter Procedures Procedure Name Priority Date/Time Associated Diagnosis Comments HM PAP/HPV Routine 01/17/2022 documented in this encounter Results * Hm Pap Smear (01/17/2022) us Historical Provider HEALTH MAINTENANCE Final Result documented in this encounter Visit Diagnoses Not on filedocumented in this encounter Care Teams [employer] [place] [employer] Relationship Specialty Start Date End Date eMlani Avalos FNP PCP - General Family Medicine 03/10/22 04/21/23 Atiya Ruelas NP [address] [place] [address] PCP - General Family Medicine 04/22/23 05/18/24 Lisandra Machado NP [address] [place] [address] PCP - General Family Medicine 05/19/24 Shanell Ariza Orthodontist 04/30/24 documented as of this encounter
--- OUTSIDE RECORDS SUMMARY | 2025-05-25 13:37 | XMS_ITS | Clinical Summary ---
Author Organization [employer] Address [address] [facility] [address] [place] [address] Care Team Providers Care Rn Birthing Name Role Phone Carter Lisandraravinder SHAH Primary Care Provider [phone] Allergies Active Allergy Reactions Criticality Noted Date Comments Penicillins Anaphylaxis High 08/06/2019 Shrimp Extract 11/24/2023 Shrimp Flavor Agent (Non-Screening) 12/27/2022 Medications montelukast (Singulair) 10 MG tabletIndication s:Mild persistent asthma without complication Take 1 tablet (10 mg) by mouth at bedtime. 90 tablet 2 08/08/19 23 Active hydrOXYzine pamoate (Vistaril) 25 MG capsuleIndicatio ns:Anxiety Take 1 capsule (25 mg) by mouth if needed in the morning, at noon, and at bedtime for anxiety. 90 capsule 1 08/08/19 23 Active ibuprofen 800 MG tabletIndication s:Endometriosis Take 1 tablet (800 mg) by mouth every 8 (eight) hours if needed for moderate pain. 180 tablet 1 08/08/19 23 Active acetaminophen (Tylenol) 325 MG tablet Take 2 tablets (650 mg) by mouth every 6 (six) hours if needed for headaches or fever. 30 tablet 1 04/28/20 23 Active polyethylene glycol, PEG, 3350 (MiraLax) 17 GM/SCOOP powder 17 grams in 8-12 oz fluid like water at bedtime prn constipation 527 g 2 04/28/20 23 Active amitriptyline (Elavil) 10 MG tabletIndication s:Acute intractable headache, unspecified headache type Take 1 tablet (10 mg) by mouth at bedtime. 30 tablet 09/19/19 24 Active SUMAtriptan (Imitrex) 25 MG tabletIndication s:Acute intractable headache, unspecified headache type TAKE 1 TABLET BY MOUTH AT ONSET OF MIGRAINE. MAY REPEAT ONCE AFTER 2 HOURS IF NEEDED. NO MORE THAN 8 TABLETS PER 24 HOURS 9 tablet 1 09/19/19 24 Active pseudoephedrine (Sudafed) 30 MG tabletIndication s:Congestion of right ear TAKE 1 TABLET BY MOUTH EVERY 4 HOURS IF NEEDED FOR CONGESTION FOR UP TO 10 DAYS 30 tablet 11/25/19 24 Active 27-1 MG tabletIndication s:Endometriosis, Desire for Take 1 tablet by mouth Once per day. 90 tablet 2 02/18/20 24 Active fluticasone (Flonase) 50 MCG/ACT nasal sprayIndications :Acute cough,Congestion of right ear ADMINISTER 1 TO 2 SPRAYS INTO EACH NOSTRIL ONCE A DAY. SHAKE GENTLY. BEFORE FIRST USE, PRIME PUMP. AFTER USE, CLEAN TIP AND REPLACE CAP. 48 g 3 07/02/20 24 Active multivitamin () 27-0.8 MG tabletIndication s:Breast feeding status of mother Take 1 tablet by mouth Once per day. 90 tablet 3 11/23/19 25 Active albuterol 108 (90 Base) MCG/ACT inhalerIndicatio ns:Acute cough,Mild persistent asthma without complication Inhale 2 puffs every 4 (four) hours if needed for wheezing or shortness of breath. 18 g 3 01/06/20 25 Active Tirzepatide-Weig ht Management (Zepbound) 2.5 MG/0.5ML solution auto-injectorInd ications:Class 1 obesity with body mass index (BMI) of 31.0 to 31.9 in adult, unspecified obesity type, unspecified whether serious comorbidity present,Endometr iosis Inject 0.5 mL (2.5 mg) under the skin 1 (one) time per week for 28 days. 2 mL 04/19/20 25 025 Active Problems Problem Noted Date Diagnosed Date Class 1 obesity with body ma ss index (BMI) of 31.0 to 31.9 in adult 04/19/2025 Assessment & Plan (04/23/2025 5:14 PM EDT): Orders: Tirzepatide-Weight Management (Zepbound) 2.5 MG/0.5ML solution auto-injector; Inject 0.5 mL (2.5 mg) under the skin 1 (one) time per week for 28 days. Other fatigue 03/01/2025 Assessment & Plan (03/03/2025 3:55 PM EDT): Orders: CBC auto differential; Future Iron And Total Iron Binding Capacity; Future TSH W/Reflex to FT4; Future Irregular menses 03/01/2025 Assessment & Plan (03/03/2025 3:55 PM EDT): Pt with irregular menses in setting of work up by SCUDDING INSPECTOR, agree with initaition of progesterone , pt feels comfortable discussing side effect concerns with SCUDDING INSPECTOR team Orders: CBC auto differential; Future Iron And Total Iron Binding Capacity; Future TSH W/Reflex to FT4; Future Left lower quadrant abdominal pain 03/01/2025 Assessment & Plan (03/03/2025 3:55 PM EDT): Tenderness, reviewed options of watchful waiting, seeing splicer machine operator team or pursuing imaging, pt opts to pursue imaging, denies consitutional symptom, er precautions reviewed Orders: US Pelvis Transvaginal; Future Us Pelvis complete; Future Overweight 01/21/2025 Assessment & Plan (01/21/2025 4:48 PM EDT): Encouraged healthy activity Dietary counseling 01/21/2025 Exercise counseling 01/21/2025 Assessment & Plan (01/21/2025 4:48 PM EDT): Dietary Recommendations: Fruits, vegetables, whole grains, protein foods, and fat-free or low-fat dairy products are healthy choices. Eat different types of protein foods in your diet. This can include seafood, lean meats, poultry, beans, peas, lentils, nuts, seeds, soy products, and eggs. Limit foods and beverages higher in added sugars, saturated fat, and sodium. 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 No acute concerns, Referral to derm Anticipatory guidance reviewed Labs as ordered below Nevus 01/05/2025 Assessment & Plan (01/21/2025 4:39 PM EDT): Hx of biopsy neg nevus Referral to derm Breast feeding status of mother 11/22/2024 Assessment & Plan (11/22/2024 8:09 PM EDT): Renew Chronic midline low back pain 11/22/2024 Assessment & Plan (11/22/2024 8:10 PM EDT): Back pain post epidural , non radiating Encounter for contraceptive management Assessment & Plan (11/22/2024 8:10 PM EDT): Interested in options reviewed contraceptives Cholestasis during in third trimester 10/11/2024 Overview (01/05/2025): Presumed dx based on symptoms at 35 [...] > 100 micromol/L, delivery at 36+0 weeks Khmer modern languages professor needed 09/27/2024 Overview (01/05/2025): Understands some Welsh flotation tender helper used Anemia 08/10/2024 Overview (01/05/2025): Hgb 9.3 upon d/c PP from CBC, on oral iron. On 07/27/23 hgb was 9.7 and iron started. Pt was 26 wks. Carpal tunnel syndrome during 07/06/20 Acute cough 07/03/2024 Assessment & Plan (07/03/2024 12:09 PM EST): URI with poct tests negative for covid, flu, strep. No audible wheeze, inhaler refilled Continue hydration. Return to clinic for worsening symptoms fever or sob. Upper respiratory tract infection 07/03/2024 Assessment & Plan (07/03/2024 12:11 PM EST): Sig nasal congestion, day 6 of illness, continue supportive measures, If fails to improve or rapidly worsens will treat with abx. In setting of up to date recommendation is to utilize supportive measures until after day 7 Pt verablizes understanding Other specified hypothyroidism 04/12/2024 Assessment & Plan (04/23/2025 5:14 PM EDT): Orders: TSH W/Reflex to FT4; Future Assessment & Plan (04/12/2024 8:06 PM EDT): Hx of hypothyroid, tsh wnl, repeat labs, attempted to connect with ob office, pt has visit with them tomorrow Rubella non-immune status, antepartum 04/07/2024 Overview (01/05/2025): Plan vax PP Elevated TSH 04/03/2024 Overview (01/05/2025): 04/01/24 TSH 3.07 Needs follow up with [...] informs dose was increased to 25mcg daily Encounter for supervision of normal first in third trimester 03/26/2024 Overview (01/05/2025): CNM OB-CMI score: 1 [03/26/2024] Group PN care? * screening carrier screening done previously--neg. cfDNA ordered Baby ASA NI Rh positive GC/Chlam Neg/Neg PAP done at FOB NILM HPV neg Flu * COVID-19 * Hgb 9.7 - iron started GTT 138 Repeat RPR NR Tdap 08/24/24 EPDS 4 PPBC unsure, considering IUD GBS neg Infant Feeding Plan breast Diminished ovarian reserve 02/03/2024 Overview (01/05/2025): Likely secondary to ovarian surgeries from endometriosis. FSH 15.3, AMH 0.36 Female infertility 12/24/2023 Bilateral impacted cerumen 12/23/2023 Assessment & Plan (07/03/2024 12:08 PM EST): Pt has debrox drops at home Acute intractable headache 12/23/2023 Assessment & Plan (12/23/2023 9:53 PM EDT): -symptom report suggestive of migraine headaches -will trial prophylactic treatment with amitriptyline 10 mg nightly and abortive treatment with sumatriptan -advised increased Increase fluid intake -Discussed migraines triggers and sleep hygiene, recommended 8-9 h of sleep per night. -Headache red flags discussed: report to ED immediately if headache characteristics intensify within 5 mins of onset, if associated with intense nausea and vomiting or confusion -follow-up in 1 mo or sooner Palpitation 12/23/2023 Assessment & Plan (12/23/2023 10:03 PM EDT): -patient denies symptoms during visit today therefore no EKG was completed -advised continued monitoring for when symptoms occur -encouraged to discontinue use of energy drinks as this may be contributing to her symptoms -iron panel ordered Postviral syndrome 08/05/2023 Assessment & Plan (08/05/2023 2:58 PM EST): Reassurance, I explained that these sxs are common after viral diseases and that they will disappear gradually. Will order labs to ro significant inflammation, and ask her to fu with PCP if sxs last more than 3mo. She can take Tylenol 500-650 mg daily for 1mo and fu prn History of loss, not currently pregnan t 08/01/2023 Overview (01/05/2025): 2018 in [place]. States she had ectopic , but no treatment and describes passing vaginally. In early , will need ectopic risk protocol regardless d/t endometriosis history. Encounter for preventive health examination 09/2022 Assessment & Plan (2023 2:28 PM EDT): Discussed with patient re increase fresh fruit and vegetable intake. Counseled re moderate exercise as tolerated, up to 20min/d Patient feels safe at home. PAP smear up to date. Upcoming jasper w/ due 05/2023 Eye exam up to date. Next one due on 04/2025 Lipids/FBS up to date. Next one due on 04/2024 Vaccinations, declines Covid, HPV, and flu. TD and Hep B up to date. Order titers of other IZs. Dental visit, up to date, next one due 09/2023 Immunization declined 2023 Assessment & Plan (2023 10:16 AM EDT): Decline flu, Covid, HPV IZ today. Counseled to have them done at her earliest convenience at a nearby pharmacy or call back PRN. Bartholin cyst 01/11/2023 Overview (01/11/2023): Right sided, drained 01/03/23 F/u OBGYN Sore throat 12/27/2022 Assessment & Plan (12/27/2022 4:58 PM EDT): Gave pseudoephedrine for sinus pressure and rhinitis. Discussed hydration, hot showers. Patient to return in 10 days if symptoms fail to improve. If worsening symptoms ED precautions advised. Asthma 11/27/2022 Overview (01/05/2025): Uses nebulizer or albuterol with exacerbation. No hx of hospitalization or intubation At 23 weeks visit - reported a flare of asthma, being managed by PCP. Ventolin and a nasal spray, not using albuterol currently as it causes her heart to race Migraine with aura and witho ut status migrainosus, not intractable 08/08/2022 Mild persistent asthma without complication 06/14 Assessment & Plan (08/05/2023 2:56 PM EST): Exacerbated after Covid. Continue albuterol prn only and fu with PCP. Encouraged to get last covid booster + Influenza vax within 1-2m Assessment & Plan (2023 10:18 AM EDT): Controlled Cont Symbicort and Albuterol PRN FU w/ PCP if she needs to restart Flovent Decline flu and Covid IZ Chocolate cyst of ovary 07/10/2021 Endometriosis 07/10/2021 Overview (08/08/2022): Stage 3; Care managed by Dr. Sandro Mcmanus in [facility] Treating with Lupron injections Assessment & Plan (04/23/2025 5:14 PM EDT): Orders: Tirzepatide-Weight Management (Zepbound) 2.5 MG/0.5ML solution auto-injector; Inject 0.5 mL (2.5 mg) under the skin 1 (one) time per week for 28 days. 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 Assessment & Plan (2023 10:18 AM EDT): FU w/ PCP Resolved Problems Problem Noted Date Diagnosed Date Resolved Date UTI in 01/05/2025 01/05/2025 17 weeks gestation of 05/19/2024 01/05/2025 Assessment & Plan (06/06/2024 3:56 PM EST): Pt is followed by SCUDDING INSPECTOR, in counseling for anticipatory anxiety Denies vaginal bleeding Defer to obygyn re /pap management and thyroid monitoring during . Desire for 2023 025 Assessment & Plan (2023 10:19 AM EDT): Renewal for vitamins Encounters Date Type Department Care Team Description 05/13/2025 Telephone [facility] [address] [place] [phone] Lisandra Machado NP Prior Authorization 05/11/[address] [address] Lisandra Machado NP Care Management (C3CM follow up call) 05/06/2025 Telephone [facility] [address] [place] [address] Lisandra Machado NP Prior Authorization 04/19/2025 2:30 PM EDT Office Visit [address] [address] Lisandra Machado NP Other specified hypothyroidism (Primary Dx); Class 1 obesity with body mass index (BMI) of 31.0 to 31.9 in adult, unspecified obesity type, unspecified whether serious comorbidity present; Endometriosis 04/19/2025 Travel 04/18/2025 Travel 04/18/2025 Telephone [facility] [address] [place] [phone] Lisandra Machado NP CHART PREP 04/15/[address] [address] Lisandra Machado NP Care Management (C3 TC #[id number]) 03/09/[address] [address] Lisandra Machado NP Appointment Request 03/08/[address] [address] Lisandra Machado NP Care Management (C3 follow up call) 03/03/2025 Results Follow-Up [address] [address] Zuleyka Burt RN Pelvis Transvaginal 03/02/2025 Orders Only [address] [address] Lisandra Machado NP 03/01/2025 3:30 PM EDT Office Visit [address] [address] Lisandra Machado NP Other fatigue (Primary Dx); Irregular menses; Left lower quadrant abdominal pain 03/01/2025 Travel 02/28/2025 Travel 02/28/[address] [address] Lisandra Machado NP Nurse Triage from Last 3 Months Immunizations Immunization Administration Dates Next Due Influenza injectable quadriv alent preservative free 08/19/2023,05/24/2021,08/07/2020 MMR 10/25/2024 Pfizer Covid-19 Vaccine 12+ 11/30/2020, Pfizer Covid-19 Vaccine 12+ delphine-sucrose (Batista Cap) 11/30/2020,11/09/2020 Tdap 08/24/2024,10/13/2020 Varicella 09/11/2022 Family History Medical History Relation Name Comments Thyroid cancer Mother's Brother Breast cancer Mother's Sister Cancer Neg Hx Diabetes Neg Hx Hypertension Neg Hx Relation Name Status Comments Mother's Brother Mother's Sister Social History Tobacco Use Types Packs/Day Years Used Date Smoking Tobacco: Never Passive Smoke Exposure: Never Smokeless Tobacco: Never Tobacco Cessation:Counseling Given: Not Answered Alcohol Use Standard Drinks/Week Comments Not Currently 1 (1 standard drink = 0.6 oz pur e alcohol) Once a month, social Depression Answer Date Recorded Patient Health Questionnaire-9 Score 4 11/22/2024 Patient Health Questionnaire-9 Score 4 11/22/2024 Last PHQ-9: Questionnaire Data Not on file 0 11/22/2024 Housing Stability Answer Date Recorded What is your housing situation today? I have soniya nettles 05/08/[address] you li ve. Do you have problems with any of the following? None of the above 05/08/2023 Food Insecurity Answer Date Recorded Within the past 12 months, y ou worried that your food would run out before you got money to buy more: Never True 07/30/2024 Within the past 12 months,th e food you bought just didn't last and you didn't have enough money to get more: Never True Transportation Answer Date Recorded In the past [...] Date Recorded Patient Health Questionnaire-2 Score 0 11/22/2024 Internet Access Answer Date Recorded Internet Access Q1 Yes 04/28/2024 Internet Access Q2 Not on file 04/28/2024 Comments Unknown Intention Date Recorded No desire to become (finding) 0 01/05/2025 Sex and Gender Information Value Date Recorded Sex Assigned at Female 05/13/2022 10:36 AM EDT Legal Sex Female 10:36 AM EDT Gender Identity Female 05/13/2022 10:36 AM EDT Sexual Orientation Don't know 05/13/2022 10 :36 AM EDT Last Filed Vital Signs Vital Sign Reading Time Taken Comments Blood Pressure 120/82 04/19/2025 2:34 PM EDT Pulse 107 04/19/2025 2:34 PM EDT Temperature 36.9 C (98.5 F) 04/19/2025 2:34 PM EDT Respiratory Rate 25 04/19/2025 2:34 PM EDT Oxygen Saturation 98% 04/19/2025 2:34 PM EDT Inhaled Oxygen Concentration - - Weight 75.1 kg (165 lb 9.6 oz) 04/19/2025 2:34 P M EDT Height 154.9 cm (5' 1 ) 04/19/2025 2:34 PM EDT Body Mass Index 31.29 04/19/2025 2:34 PM EDT Plan of Treatment Upcoming Encounters Date Type Department Care Team (Late st Contact Info) Description 07/05/2025 10:00 AM EST Office Visit [facility] [address] [place] [address] Antonia White, OD [address] [place] [address] 07/22/2025 10:15 AM EST Office Visit [facility] [address] [place] [address] Lisandra Machado, ALYSSA [address] [place] [address] Health Maintenance Due Date Last Done Comments Lipid Panel 1998 HPV Vaccines (1 - 3-dose series) 2013 Hepatitis A Vaccines (1 of 2 - Risk 2-dose series) 2017 Hepatitis B Vaccines (1 of 3 - 19+ 3-dose series) 2017 Pneumococcal Vaccine: Pediatrics (0 to 5 Years) and At-Risk Patients (6 to 49) Years (1 of 2 - PCV) 2017 HPV/Cotest 12/12/2021 11/13/2020, 08/16/2019 COVID-19 Vaccine ( season) 2025 11/30/2020, 11/30/2020, 11/09/2020, Additional history exists Influenza Vaccine (#1) 2025 , 05/24/2021, 08/07/2020 SDOH Screening 07/30/2025 07/30/2024 Alcohol/Substance Use Screening 11/22/2025 11/22/2024 Depression Screening 11/22/2025 11/22/2024, 11/23/19 Disability Screening 12/31/2025 12/31/2024 Family Planning (PISQ) 01/05/2026 01/05/2025 Tobacco Screening 04/19/2026 04/19/2025 Pap Smear 03/26/2027 03/26/2024, 07/0 01/2022, 11/13/2020 DTaP/Tdap/Td Vaccines (3 - Td or Tdap) 08/24/2034 08/24/2024, 10/13/2020 Zoster Vaccines (1 of 2) 2048 RSV Patients and Patients Aged 60 years or older (1 - 1-dose 75+ series) 2073 HIV Screening Completed 01/17/2022, 12/13, 04/18/2021, Additional history exists Hepatitis C Screening Completed 11/04/2023 , 01/17/2022, 01/01/2022, Additional history exists HIB Vaccines Aged Out No longer eligi ble based on patient's age to complete this topic IPV Vaccines Aged Out No longer eligi ble based on patient's age to complete this topic Meningococcal B Vaccine Aged Out No l onger eligible based on patient's age to complete this topic Meningococcal Vaccine Aged Out No jay jay jody eligible based on patient's age to complete this topic RSV under 20 months Aged Out No longe r eligible based on patient's age to complete this topic Rotavirus Vaccines Aged Out No longer eligible based on patient's age to complete this topic Procedures Procedure Name Priority Date/Time Associated Diagnosis Comments T4, FREE Routine 03/02/2025 4:40 PM EDT TSH W/REFLEX TO FT4 Routine 03/02/2025 4 :40 PM EDT Other fatigue Irregular menses IRON AND TOTAL IRON BINDING CAPACITY Routine 03/02/2025 4:40 PM EDT Other fatigue Irregular menses CBC WITH AUTO DIFFERENTIAL Routine 03/02/2025 4:40 PM EDT Other fatigue Irregular menses US PELVIS TRANSVAGINAL Routine 03/02/2025 4:18 PM EDT Left lower quadrant abdominal pain HM PAP/HPV Routine 03/26/2024 3:48 PM EDT ZZZ HISTORICAL HEPATITIS B SURFACE ANTIGEN* Routine 01/17/2022 3:35 PM EDT ZZZ HISTORICAL HPV MRNA E6/E7 Routine 11/13/2020 12:03 PM EDT from Last 3 Months or Most Recently Relevant to Health Maintenance Results * (ABNORMAL) TSH W/Reflex to FT4 (03/02/2025 4:40 PM EDT) TSH reflex Free T4 0.05(L) 0.32 - 4.0 uIU/mL [facility] Blood Venous blood specimen / Unknown 03/02/2025 4:40 PM EDT 03/02/2025 4:40 PM EDT Lisandra Machado FEDERAL APPELLATE LAW CLERK LAB BLOOD ORDERABLES Final Resul t [facility] [address] [place] [phone] * (ABNORMAL) CBC auto differential (03/02/2025 4:40 PM EDT) White Blood Count 7.4 4.8 - 10.8 X10*3/uL [facility] Red Blood Count 5.06 4.20 - 5.50 X10*6/uL [facility] Hemoglobin 13.4 12.0 - 16.0 g/dl [facility] Hematocrit 39.9 37.0 - 47.0 % [facility] Mean Corpuscular Volume 78.9(L) 80.0 - 98.0 fL [facility] Mean Corpuscular Hemoglobin 26.5(L) 27.0 - 33.0 pg [facility] Mean Corpuscular HGB Conc 33.6 31.0 - 35.0 g/dl [facility] Red Cell Distribution Width 14.4 11.0 - 16.0 % [facility] Platelet Count 282 160 - 400 X10*3/uL [facility] Mean Platelet Volume 9.6 9.4 - 12.3 fL [facility] Neutrophils Percent Auto 49.4 45 - 73 % [facility] Imm Gran Pct Auto 0.1 0.0 - 0.4 % [facility] Lymphocytes Percent Auto 41.6(H) 20 - 40 % [facility] Monocytes Percent Auto 6.9 2 - 11 % [facility] Eosinophils Percent Auto 1.6 0 - 4 % [facility] Basophils Percent Auto 0.4 0 - 2 % [facility] NRBC Pct Auto 0.0 0.0 - 0.2 /100WBC [facility] Neutrophils Absolute Auto 3.6 2.0 - 8.3 x10*3/uL [facility] Imm Gran Abs Auto 0.01 0.00 - 0.03 X10*3/uL [facility] Lymphocytes Absolute Auto 3.1 1.2 - 4.9 X10*3/uL [facility] Monocytes Absolute Auto 0.5 0.1 - 1.2 X10*3/uL [facility] Eosinophils Absolute Auto 0.1 0.0 - 0.4 X10*3/uL [facility] Basophils Absolute Auto 0.0 0.0 - 0.2 X10*3/uL [facility] NRBC Abs Auto 0.000 0.0 - 0.012 X10*3/uL [facility] Blood Venous blood specimen / Unknown 03/02/2025 4:40 PM EDT 03/02/2025 4:40 PM EDT us Lisandra Machado NP LAB BLOOD ORDERABLES Final Resul t [facility] [address] [place] [phone] * Iron And Total Iron Binding Capacity (03/02/2025 4:40 PM EDT) Iron 46 30 - 160 mcg/dL [facility] Total Iron Binding Capacity 278 228 - 428 mcg/dL [facility] Percent Iron Saturation 17 15 - 50 % [facility] Unsaturated Iron Binding 232 ug/dL [facility] Blood Venous blood specimen / Unknown 03/02/2025 4:40 PM EDT 03/02/2025 4:40 PM EDT us Lisandra Machado FEDERAL APPELLATE LAW CLERK LAB BLOOD ORDERABLES Final Resul t Performing Organization Address [facility] de Phone Number [facility] [address] [place] [phone] * T4, Free (03/02/2025 4:40 PM EDT) Free T4 (Free Thyroxine) 1.46 0.71 - 1.85 ng/dL [facility] 03/02/2025 4:40 PM EDT 03/02/2025 4:40 PM EDT us Lisandra Machado FEDERAL APPELLATE LAW CLERK LAB BLOOD ORDERABLES Final Resul t Performing Organization Address [facility] de Phone Number [facility] [address] [place] [phone] * US Pelvis Transvaginal (03/02/2025 4:18 PM EDT) Anatomical Region Laterality Modality Pelvis Ultrasound 03/02/2025 4:18 PM EDT Narrative 03/02/2025 4:52 PM EDT [address] [address] Ultrasound Report Signed Patient: Deborah Mcadams MR#: [id number] : 2000 Acct:[id number] Age/Sex: 24 / F ADM Date: 03/02/25 Loc: HO.US Attending Dr: Lisandra Machado FEDERAL APPELLATE LAW CLERK Ordering Physician: Lisandra Machado NP Date of Service: 03/02/25 Procedure(s): US pelvic and transvaginal Accession Number(s): [id number] cc: Lisandra Machado FEDERAL APPELLATE LAW CLERK EXAMINATION: US PELVIS CLINICAL INFORMATION: Left lower quadrant pain, irregular menses COMPARISON: May 14, 2023 TECHNIQUE: Ultrasound of the pelvis is performed using both transabdominal and transvaginal transducers along with Doppler. Transvaginal imaging is performed due to inadequate visualization transabdominally. FINDINGS: Uterus: The uterus is anteverted and measures 7.6 x 2.6 x 3.8 cm. The double wall endometrial thickness is 7 mm. The uterus is smooth in contour and has normal myometrial echogenicity. No visible fibroid. Adnexa: Both ovaries are visualized. There is normal color flow to the adnexa. There is no ovarian torsion. There is no pelvic ascites or fluid collection. Right ovary measures 2.3 x 1.0 x 2.4 cm. Left ovary measures 3.5 x 2.2 x 2.3 cm. There is a simple paraovarian cyst measuring 1.0 cm Long axis , previously 1.6 cm US/US pelvic and transvaginal IMPRESSION: Unremarkable pelvic ultrasound Electronically signed by: Arsalan Roger MD 03/02/2025 04:49 PM EDT RP Dictated By: Arsalan Roger MD Signed By: <Electronically signed by Arsalan Roger MD in OV> 03/02/25 1649 DD/ 1618 TD/TT: 03/02/25 1627 Lead Press Operator: Procedure Note Donotuseinterpreter, Image - 03/02/[address] [address] Ultrasound Report Signed Patient: Morena Mcadams#: [id number] : 2000Acct:[id number] Age/Sex: 24 FADM Date: 03/02/25 Loc: HO.US Attending Dr: Lisandra Machado NP Ordering Physician: Lisandra Machado NP Date of Service: 03/02/25 Procedure(s): US pelvic and transvaginal Accession Number(s): [id number] cc: Lisandra Machado FEDERAL APPELLATE LAW CLERK EXAMINATION: US PELVIS CLINICAL INFORMATION: Left lower quadrant pain, irregular menses COMPARISON: May 14, 2023 TECHNIQUE: Ultrasound of the pelvis is performed using both transabdominal and transvaginal transducers along with Doppler. Transvaginal imaging is performed due to inadequate visualization transabdominally. FINDINGS: Uterus: The uterus is anteverted and measures 7.6 x 2.6 x 3.8 cm. The double wall endometrial thickness is 7 mm. The uterus is smooth in contour and has normal myometrial echogenicity. No visible fibroid. Adnexa: Both ovaries are visualized. There is normal color flow to the adnexa. There is no ovarian torsion. There is no pelvic ascites or fluid collection. Right ovary measures 2.3 x 1.0 x 2.4 cm. Left ovary measures 3.5 x 2.2 x 2.3 cm. There is a simple paraovarian cyst measuring 1.0 cm Long axis , previously 1.6 cm US/US pelvic and transvaginal IMPRESSION: Unremarkable pelvic ultrasound Electronically signed by: Arsalan Roger MD 03/02/2025 04:49 PM EDT Dictated By: Arsalan Roger MD Signed By: <Electronically signed by Arsalan Roger MD in OV> 03/02/25 1649 DD/ 1618 TD/TT: 03/02/25 1627 Lead Press Operator: Lisandra Machado FEDERAL APPELLATE LAW CLERK IMG US PROCEDURES Final Result * HM PAP/HPV (03/26/2024 3:48 PM EDT) Historical Provider HEALTH MAINTENANCE Final Result * HEPATITIS B SURFACE ANTIGEN* (01/17/2022 3:35 PM EDT) Pathologist [facility] Hepatitis B Surface Antigen Negative Negative [facility] Hepatitis C Antibody Nonreactive Nonreactive [facility] Comment: Antibodies to HCV not detected; does not exclude early acute HCV infection. HIV AB/AG Nonreactive Nonreactive [facility] Comment: HIV-1 p24 Ag and/or HIV-1/HIV-2 Ab not detected. A test result that is nonreactive does not exclude the possibility of exposure to or infection with HIV-1 and/or HIV-2. Nonreactive results in this assay for individuals with prior exposure to HIV-1 and/or HIV-2 may be due to antigen and antibody levels that are below the limit of detection of this assay. The [employer] HIV Ag/Ab Combo assay result and supplemental assay results should be interpreted in conjunction with the patient's clinical presentation, history and other laboratory results. If the results are inconsistent with clinical evidence, additional testing is suggested to confirm the result. 01/17/2022 3:35 PM EDT Girish Andres MD HISTORICAL/NON ORDERABLE LABS Fi nal Result Performing Organization Address [facility] de Phone Number [facility] [address] * (ABNORMAL) HPV mRNA E6/E7 (11/13/2020 12:03 PM EDT) [facility] HPV mRNA E6/E7 Detected (A) Not Detected [facility] Comment: Methodology: Cipher Expert-Mediated Amplification This assay detects E6/E7 viral messenger RNA (mRNA) from 14 high-risk HPV types (16,18,31,33,35,39,45,51,52,56,58,59,66,68). The analytical performance characteristics of this assay have been determined by [employer]. The modifications have not been cleared or approved by the FDA. This assay has been validated pursuant to the CLIA regulations and is used for clinical purposes. For additional information, please refer to http://education.Mysterio.StoreDot/faq/LNA714c9 (This link if provided for information/ educational purposes only.) THIS TEST WAS PERFORMED AT: [facility] [address] [place] [address] [address] [facility],[place] [address] LEXIE CIFUENTES MD 11/13/2020 12:0 3 PM EDT Girish Andres MD HISTORICAL/NON ORDERABLE LABS Fi nal Result Performing Organization Address [facility] Co de Phone Number [facility] [address] from Last 3 Months or Most Recently Relevant to Health Maintenance Insurance [facility] C3 Care Teams Rn Birthing Relationship Specialty Start Date End Date Lisandra Machado NP [address] [place] [id number] PCP - General Family Medicine 05/19/24 Shanell Ariza Collections Agent 04/30/24
--- OUTSIDE RECORDS SUMMARY | 2025-05-25 13:37 | XMS_ITS | Encounter Summary ---
Author Organization [employer] [facility] Address [address] [place] [address] 7 [place] [address] Care Team Providers Care Poultry Dressing Worker Name Role Phone Melani Avalos SUPERVISOR RECORDS CHANGE Primary Care Provider Sandi Atiya Mayen WEIGHER AND GRADER Primary Care Provider [phone] Lisandra Machado WEIGHER AND GRADER Primary Care Provider [phone] Encounter Details Date Type Department Care Team (Late Contact Info) Description 04/08/2023 Orders Only [facility] [address] [place] [id number] Carrie Ocampo Social History Tobacco Use Types Packs/Day Years [...] Description 07/05/2025 10:00 AM EST Office Visit [facility] [address] [place] [address] Antonia White, OD [address] [place] [address] 07/22/2025 10:15 AM EST Office Visit [facility] [address] [place] [phone] Lisandra Machado NP [address] [place] [address] documented as of this encounter Procedures Procedure Name Priority Date/Time Associated Diagnosis Comments COLPOSCOPY Routine 12/12/2020 12:00 AM EDT HM PAP/HPV Routine 11/13/2020 documented in this encounter Results * Colposcopy (12/12/2020 12:00 AM EDT) us Historical Provider MD IN CLINIC/BEDSIDE ORDERAB LES Final Result * Hm Pap Smear (11/13/2020) us Historical Provider HEALTH MAINTENANCE Final Result documented in this encounter Visit Diagnoses Not on filedocumented in this encounter Care Teams Poultry Dressing Worker Relationship Specialty Start Date End Date Melani Avalos FNP PCP - General Family Medicine 03/10/22 04/21/23 Atiya Ruelas NP [address] [place] [address] PCP - General Family Medicine 04/22/23 05/18/24 Lisandra Machado NP [address] [place] [address] PCP - General Family Medicine 05/19/24 Shanell Ariza Breast Puller 04/30/24 documented as of this encounter
--- OUTSIDE RECORDS SUMMARY | 2025-05-25 13:37 | XMS_ITS | Clinical Summary ---
Author Organization [facility] Address [address] [address] Phone Care Team Providers Care Joint Yarner Name Role Phone Unknown, Unknown MD Unavailable Unavailable Lisandra Machado ASSEMBLY LINE DRIVER Primary Care Provider [phone] Allergies Active Allergy Reactions Criticality Noted Date Comments Penicillins Throat Tightness High 04/17/2021 Shrimp 11/24/2023 Medications albuterol 90 mcg/actuation inhaler Inhale 2 puffs into the lungs every 6 (six) hours as needed for wheezing. Active vitamins with ferrous fumaric-Folic acid (SHAUNNA ) 28 mg iron- 800 mcg Tab Take 1 tablet (0.8 mg total) by mouth daily. 90 tablet 3 12/21/2024 Active levothyroxine (SYNTHROID,LEVOT HROID) 25 MCG tablet Take 1 tablet (25 mcg total) by mouth every morning. 90 tablet 3 02/24/2025 Active Active Problems Problem Noted Date Diagnosed Date Hungarian language assistant needed 09/27/2024 Overview (09/27/2024): Understands some Azeri pull over used Assessment & Plan (09/27/2024 10:02 AM EDT): In-person vibrator operator used throughout visit today Anemia 08/10/2024 Overview [...] 07/27/23 hgb was 9.7 and iron started. Bcy reports she has been taking iron for about one week and feels a great improvement in energy. Denies constipation. Will recheck CBC in 4 weeks and will order for then. Elevated TSH 04/03/2024 Overview (08/24/2024): 04/01/24 TSH [...] 05/2023 by her initial reproductive specialist at [facility] because TSH was high for planned at 3.03 in 07/2022. TSH was between 1.74 and 2.21 while on 25 mcg LT4 daily. Her levothyroxine was not renewed after 05/2023 when the reproductive center closed at [facility]. Her TSH has been monitored, was [...] likely use progestin only methods of treatment. Female infertility 12/24/2023 Overview (02/25/2025): Decreased ovarian reserve. AMH 0.21 Asthma 11/27/2022 11/27/2022 Overview (07/06/2024): Uses nebulizer [...] control in . Currently monitored by PCP. Migraine with aura and witho ut status migrainosus, not intractable 08/08/2022 Mild persistent asthma without complication 06/14 Endometriosis determined by laparoscopy 06/12/20 21 Assessment & Plan (10/18/2021 8:57 PM EDT): [...] think that an attempt by another general pulling unit floorhand would be optimal. I think she would [...] Seen after BPP today for NST. BPP 68 off for tone. TAO normal NST reactive [...] to FM and to call if concerned. Goiter 07/13/2024 02/25/2025 Assessment & Plan (09/29/2024 3:38 PM EDT): [...] if increasing size, asymmetry or palpable nodule/tenderness Vaginal bleeding in pregnanc y, second trimester 07/11/2024 09/20/2024 Assessment & Plan (09/08/2024 11:36 AM EST): Seen on CBC. Bleeding was from hemorrhoid. Thanairy states that it is better and has had no further bleeding. Carpal tunnel syndrome during 07/06/2024 02/25/2025 Assessment & Plan (08/10/2024 8:18 AM EST): [...] in . 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 Disc some comfort measures to [...] 2 wks--check in on nausea and vomiting Low grade squamous intraepit helial lesion (LGSIL) on Papanicolaou smear of cervix 12/24/2023 02/25/2025 Overview (06/08/2024): Done at [facility] approximately 2 years ago per pt. Results not found in Media. Pt reports colpo was negative Repeat pap done at [facility]: NILM HPV neg Bilateral impacted cerumen 12/23/2023 0 02/25/2025 History of loss, n ot currently 08/01/2023 02/25/2025 Overview (08/01/2023): 2018 in [place]. States she had ectopic , but no treatment and describes passing vaginally. In early , will need ectopic risk protocol regardless d/t endometriosis history. Immunization declined 05/16/20232024 Overview (12/24/2023): Last Assessment & Plan: Decline flu, Covid, HPV IZ today. Counseled to have them done at her earliest convenience at a nearby pharmacy or call back PRN. Encounters Date Type Department Care Team Description 04/08/2025 8:20 AM EDT Office Visit [facility] [address] [place] [address] [place] [address] Popeye Loyola MD Menorrhagia with regular cycle (Primary Dx) 03/18/2025 1:30 PM EDT Procedure visit [facility] [address] [place] [address] [place] [address] Popeye Loyola MD [facility], [place] Negative test (Primary Dx); Abnormal uterine bleeding (AUB) 03/18/2025 1:12 PM EDT - 03/18/2025 11:59 PM EDT Hospital Encounter [facility] [place] [place] [address] [place] [address] [place] [address] Guilherme Rivera MD [facility], [place] Discharge Disposition: Home or Self Care 02/25/2025 9:00 AM EDT Office Visit [facility] [address] [place] [address] [place] [address] Guilherme Rivera MD Female infertility (Primary Dx); Vaginal bleeding; Abnormal uterine bleeding (AUB); Diminished ovarian reserve from Last 3 Months Immunizations Immunization Administration [...] have you moved in the past 12 fri th? One time 10/21/2024 Paying for Meds Answer [...] Sign Reading Time Taken Comments Blood Pressure 96/62 04/08/2025 8:30 AM EDT Pulse 82 10/27/2024 11:36 AM EDT Temperature 36.7 C (98.1 F) 10/27/2024 11:36 AM EDT Respiratory Rate 16 10/27/2024 11:3 6 AM EDT Oxygen Saturation 97% 10/27/2024 1:29 AM EDT Inhaled Oxygen Concentration - - Weight 76.6 kg (168 lb 12.8 oz) 02/25/2025 9:09 AM EDT Height 159.6 cm (5' 2.84 ) 02/25/2025 9:09 AM ED T Body Mass Index 30.05 02/25/2025 9:09 AM EDT Plan of Treatment Upcoming Encounters Date Type Department Care Team (Late st Contact Info) Description 05/25/2025 3:00 PM EST Office Visit [facility] [address] [place] [address] [place] [address] Tiffanie Juares MD [address] [facility] [address] [place] [address] Jessy Smith [address] [place] [address] [email or web address] Health Maintenance Due Date Last Done Comments DEPRESSION SCREENING 2010 HEPATITIS A VACCINES (1 of 2 - Risk 2-dose series) 2017 PNEUMOCOCCAL VACCINES (0-49 years) (1 of 2 - PCV) 2017 INFLUENZA VACCINE (#1) 2025 , 05/24/2021, 08/07/2020 COVID-19 VACCINE ( - 2024- season) 2025 11/30/2020, 11/30/2020, 11/09/2020, Additional history exists TSH LEVEL 02/07/2026 02/07/2025, 09/11, 08/10/2024, Additional history exists PAP SMEAR 03/26/2027 03/26/2024 Adult Td,Tdap Booster 08/24/2034 08/24/2024, 021 HEPATITIS C SCREENING Completed 04/01/2024 , 04/01/2024, 11/04/2023, Additional history exists HIV ONE-TIME SCREENING (18-65 YEARS) Completed 04/01/2024 SMOKING STATUS SCREENING (Once After 26 Yrs) Completed 02/25/2025 HIB VACCINES Aged Out No longer eligi ble based on patient's age to complete this topic IPV VACCINES Aged Out No longer eligi ble based on patient's age to complete this topic MENINGOCOCCAL VACCINES (ACWY) Aged Out No longer eligible based on patient's age to complete this topic MENINGOCOCCAL VACCINES (B) Aged Out N o longer eligible based on patient's age to complete this topic Medical Devices Not on file Procedures Procedure Name Priority Date/Time Associated Diagnosis Comments US SONOHYSTEROGRAM WITH TRANSVAGINAL Routine 03/18/2025 2:09 PM EDT Female infertility Abnormal uterine bleeding (AUB) Diminished ovarian reserve POCT URINE HCG Routine 03/18/2025 1:57 PM EDT Negative test TSH WITH REFLEX Routine 02/07/2025 1:35 PM EDT Goiter HEPATITIS C ANTIBODY, QUALITATIVE Routine 04/01/2024 9:17 AM EDT Encounter for supervision of normal in first trimester, unspecified PAP TEST Routine 03/26/2024 12:00 AM EDT from Last 3 Months or Most Recently Relevant to Health Maintenance Results * US SONOHYSTEROGRAM WITH TRANSVAGINAL (03/18/2025 2:09 PM EDT) Anatomical Region Laterality Modality Pelvis, Uterus/Adnexa Ultrasound 03/18/2025 4:06 PM EDT Impressions 03/18/2025 5:07 PM EDT 1. Heterogeneous uterus with no discrete masses. 2. Prior to saline infusion, the endometrium measures 8.9 mm. Saline infusion reveals no intracavitary masses or defects. 3. The right ovary appears grossly normal. 4. The left ovary contains an avascular 2.1 cm cyst with dense weblike internal echoes with an appearance suggestive of a hemorrhagic cyst. 5. There is a small amount of free fluid. Narrative 03/18/2025 5:07 PM EDT Procedure: US SONOHYSTEROGRAM WITH TRANSVAGINAL 03/18/2025 1:14 PM US Indications: AUB/ Infertility/ Diminished ovarian reserve/ Endometriosis. Comparison: No relevant recent comparisons. Technique: Transvaginal sonographic evaluation of the pelvis only was performed. Color Doppler imaging was performed to assess vascularity. Uterine canalization and retrograde saline administration was performed by Dr. Popeye Loyola of the OBGYN service per sonohysterography protocol. Reported LMP: 02/13/2025 FINDINGS: Uterus: The uterus measurements acquired; 7.53 cm x 6.00 cm x 3.68 cm with volume of 87.05 ml. The uterus is retroverted in its positioning. The myometrium is heterogeneous. Endometrium: The endometrium measures 8.9 mm and appears grossly normal. Saline infusion reveals no intracavity masses. No focal cervical masses. Ovaries: The right ovary measures 2.10 cm x 1.39 cm x 1.15 cm with volume of 1.76 ml. Appears grossly normal Right Adnexa: No masses seen. The left ovary measures 3.95 cm x 3.50 cm x 3.72 cm with volume of 26.93 ml. Contains a cyst with dense, web-like internal echoes = 2.06 x 1.59 x 2.05 cm. Peripheral vascularity only. Left Adnexa: No masses seen. Cul de Sac: There is a small amount of free pelvic fluid. Tech Comments: Procedure Note Popeye Loyola MD - 03/18/2025 Procedure: US SONOHYSTEROGRAM WITH TRANSVAGINAL 03/18/2025 1:14 PM US Indications: AUB/ Infertility/ Diminished ovarian reserve/Endometriosis. Comparison: No relevant recent comparisons. Technique: Transvaginal sonographic evaluation of the pelvis only wasperformed. Color Doppler imaging was performed to assess vascularity.Uterine canalization and retrograde saline administration was performed byDr. Popeye Loyola of the OBGYN service per sonohysterography protocol. Reported LMP: 02/13/2025 FINDINGS: Uterus: The uterus measurements acquired; 7.53 cm x 6.00 cm x 3.68 cm with volumeof 87.05 ml. The uterus is retroverted in its positioning. The myometriumis heterogeneous. Endometrium: The endometrium measures 8.9 mm and appears grossly normal. Salineinfusion reveals no intracavity masses. No focal cervical masses. Ovaries: The right ovary measures 2.10 cm x 1.39 cm x 1.15 cm with volume of 1.76ml. Appears grossly normal Right Adnexa: No masses seen. The left ovary measures 3.95 cm x 3.50 cm x 3.72 cm with volume of 26.93ml. Contains a cyst with dense, web-like internal echoes = 2.06 x 1.59 x 2.05cm. Peripheral vascularity only. Left Adnexa: No masses seen. Cul de Sac: There is a small amount of free pelvic fluid. Tech Comments: IMPRESSION: 1. Heterogeneous uterus with no discrete masses. 2. Prior to saline infusion, the endometrium measures 8.9 mm. Salineinfusion reveals no intracavitary masses or defects. 3. The right ovary appears grossly normal. 4. The left ovary contains an avascular 2.1 cm cyst with dense weblikeinternal echoes with an appearance suggestive of a hemorrhagic cyst. 5. There is a small amount of free fluid. us Guilherme Rivera MD IMG US PELVIS Final Result * Poct Urine HCG (03/18/2025 1:57 PM EDT) HCG, urine Negative, Internal QCs acceptable Negative [facility] Other 03/18/2025 1:57 PM EDT us Popeye Loyola MD LAB POCT ENTER/EDIT ORDERABLE S Final Result Performing Organization Address [facility]/ZIP Co de Phone Number [address] [address], [facility] * TSH with reflex (02/07/2025 1:35 PM EDT) Pathologist [facility] TSH 0.86 0.27 - 4.20 uIU/mL [facility] Blood 02/07/2025 1:35 PM EDT 02/07/2025 1:38 PM EDT us Tiffanie Juares MD LAB BLOOD BKR ORDERABLES Final Result Performing Organization Address [facility]/ZIP Co de Phone Number [address] [address] * Hepatitis C antibody, qualitative (04/01/2024 9:17 AM EDT) Pathologist [facility] HCV NON-REACTIV E NON-REACTI VE [facility] Blood 04/01/2024 9:17 AM EDT 04/01/2024 9:27 AM EDT us Deena Low CNM LAB BLOOD BKR ORDER BALAJI Final Result Performing Organization Address [facility] Co de Phone Number [address] [address] * Pap Test (03/26/2024 12:00 AM EDT) Report [address] [address] Cart Attendant: Eveline Lawrence MD SITE SPECIALIST Cytology Report FINAL DIAGNOSIS A. PAP SMEAR (THIN PREP) CE: SPECIMEN ADEQUACY: Satisfactory for evaluation; transformation zone present. INTERPRETATION: NEGATIVE FOR INTRAEPITHELIAL LESION OR MALIGNANCY. Fungal organisms morphologically consistent with Gaby species. Due to blood, the specimen was reprocessed with 10% Glacial Acetic Acid. This specimen was analyzed by the automated ThinPrep Imaging System ([employer] and manually rescreened by a stenographer print shop and/or pathologist. Electronically Signed Out By: ESTEVAN [...] 59, 66, 68) Note: Testing performed by Clipcopia Onclarity HR-HPV analysis. Clinical correlation is advised. This HPV test was performed at [facility], [address] [place] [address]. This test has been FDA approved for both SurePath and ThinPrep cervical cytology specimens. The accuracy and precision of this test for all other specimen sources has been verified in the Cytopathology Laboratory of the [facility] and has not been cleared or approved by the U.S. Food and Drug Administration. Clinical correlation is advised. CLINICAL HISTORY Date of Last Menstrual Period: 01-22-2024 Menstrual History: Other Clinical Conditions: Screening Pap SPECIMEN SOURCE A: PAP SMEAR (THIN PREP) CE Patient Name: DEBORAH KESSLER : 2000 (Age: 23) Sex: F Institution: [facility] Location: [facility] Date of Collection: 03/26/2024 Date of Reported: 04/01/2024 11:15 Results to: Kadi Felipe CNM [facility] Final Diagnosis A. PAP SMEAR (THIN PREP) CE: SPECIMEN ADEQUACY: Satisfactory for evaluation; transformation zone present. INTERPRETATION: NEGATIVE FOR INTRAEPITHELIAL LESION OR MALIGNANCY. Fungal organisms morphologically consistent with Gaby species. Due to blood, the specimen was reprocessed with 10% Glacial Acetic Acid. This specimen was analyzed by the automated ThinPrep Imaging System ([employer] and manually rescreened by a stenographer print shop and/or pathologist. [facility] Results\Inte rpretation A. PAP SMEAR (THIN PREP) CE: Human Papilloma Virus TestNEGATIVE for high-risk Human Papilloma Virus types 16, 18, 45 and the Other high risk probe set (Includes 31, 33, 35, 39, 51, 52, 56, 58, 59, 66, 68)Note: Testing performed by Clipcopia Onclarity HR-HPV analysis. Clinical correlation is advised. This HPV test was performed at [facility], [address] [place] [address]. This test has been FDA approved for both SurePath and ThinPrep cervical cytology specimens. The accuracy and precision of this test for all other specimen sources has been verified in the Cytopathology Laboratory of the [facility] and has not been cleared or approved by the U.S. Food and Drug Administration. Clinical correlation is advised. [facility] Conversion Type (Conversion Source) 03/26/2024 03/29/2024 9:47 AM EDT us Kadi Felipe [facility] CYTOLOGY ORDERABLES Edited Result - Final [facility] [address] [place] [address] from Last 3 Months or Most Recently Relevant to Health Maintenance [place] [address] [place] [address] [place] [address] [place] [address] [employer] [employer] [facility] C3 ACO [facility] C3 ACO [facility] C3 ACO [facility] C3 ACO C3 ACO Advance Directives For more information, please contact: [phone] (9AM - 5PM [facility], Friday-Friday) Documents on File Type Date Recorded Patient Metal Bending 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 It is not the complete legal health record.[facility]
--- OUTSIDE RECORDS SUMMARY | 2025-05-25 13:37 | XMS_ITS | Encounter Summary ---
Author Organization [facility] Address [address] [facility] 7[address] [place] [address] Care Team Providers Care Engineering Coordinator Name Role Phone Atiya Ruelas LAB TESTER Primary Care Provider [phone] Lisandra Machado LAB TESTER Primary Care Provider [phone] Reason for Visit * Reason Onset Date Comments Nurse Triage 06/24/2023 Encounter Details Date Type Department Care Team ([facility] Contact Info) Description 06/24/2023 Telephone [facility] [address] [place] [address] Atiya Ruelas NP [address] [place] [address] Nurse Triage Social History Tobacco Use Types Packs/Day Years Used Date Smoking Tobacco: Never Smokeless Tobacco: Never Alcohol Use Standard Drinks/Week Comments Not Currently 1 (1 standard drink = 0.6 oz pur e alcohol) Once a month, social Housing Stability Answer Date Recorded What is your housing situation today? I have soniyaolinda nettles 05/08/[address] you li ve. Do you have problems with any of the following? None of the above 05/08/2023 Food Insecurity Answer Date Recorded Within the past 12 months, y ou worried that your food would run out before you got money to buy more: Never True 05/08/2023 Within the past 12 months,th e food [...] Recorded Patient Health Questionnaire-2 Score 0 2023 Comments Unknown Sex and Gender Information Value Date Recorded Sex Assigned at Female 05/13/2022 10:36 AM EDT Legal Sex Female 10:36 AM EDT Gender Identity Female 05/13/2022 10:36 AM EDT Sexual Orientation Don't know 05/13/2022 10 :36 AM EDT documented as of this encounter Miscellaneous Notes * Telephone Encounter - Thais Horne RN - 06/24/2023 2:57 PM EST Triage call Pt reports weakness, tiredness , fatigue for last 3 weeks. Pt is sleeping a lot , has acough taking honey and nome for this cough. Pt reports having had a bit of asthma last week but doing better using nebulizer with good effect. Pt denies fever, runny nose, nasal congestion, headache.Pt considers possible , low hemaglobin . Pt requests to have testing done. Pt is advised to come to [facility] today, open till 8pm for provider to see Pt. Pt agrees with this disposition hours for WIC given, open till 8pm today and tomorrow. Pt reports drinking adequate liquids. Protocol Used: Weakness (Generalized) and Fatigue (Adult) Protocol-Based Disposition: See in Office or Video Visit within 3 Days Video visit not offered Positive Triage Questions: * Mild weakness (i.e., does not interfere with ability to work, go to school, normal activities) and persists > 1 week * Fatigue (i.e., tires easily, decreased energy) and persists > 1 week * All higher-acuity triage questions were negative Care Advice Discussed: * Reassurance and Education - Mild Dehydration * Drink Fluids * Rest * Reasons To Call Back - Still feeling weak after 2 hours of rest and fluids - Passes out (faints) - You become worse * Telephone Encounter - Mikayla Bailey - 06/24/2023 1:45 PM EST Symptom: Weakness Outcome: Schedule an urgent appointment (within 1 hour) or talk to a nurse or provider soon Reason: Getting worse The caller accepted this outcome Please contact Pt @ [phone] Maldivian Speaker Pt has been feeling weakness for the last three weeks. documented in this encounter Plan of Treatment Upcoming Encounters Date Type Department Care Team ([facility] st Contact Info) Description 07/05/2025 10:00 AM EST Office Visit [facility] OPTOMETRY [address] [place] [address] Antonia White, OD [address] [place] [address] 07/22/2025 10:15 AM EST Office Visit [facility] MEDICINE [address] [place] [address] Lisandra Machado, ALYSSA [address] [place] [address] documented as of this encounter Visit Diagnoses Not on filedocumented in this encounter Care Teams Engineering Coordinator Relationship Specialty Start Date End Date Atiya Ruelas NP [address] [place] [address] PCP - General Family Medicine 04/22/23 05/18/24 Lisandra Machado NP [address] [place] [address] PCP - General Family Medicine 05/19/24 Shanell Ariza Panel Installer 04/30/24 documented as of this encounter
--- OUTSIDE RECORDS SUMMARY | 2025-05-25 13:37 | XMS_ITS | Encounter Summary ---
Author Organization [employer] Address [address] [facility] [address] [place] [address] Care Team Providers Care Cooperative Education Director Name Role Phone Atiya Ruelas NP Primary Care Provider Lisandra Machado LIME MIXER TENDER Primary Care Provider [phone] Reason for Visit * Reason Onset Date Comments Letter for School/Work 08/15/2023 Encounter Details Date Type Department Care Team ([facility] Contact Info) Description 08/15/2023 Telephone [facility] MEDICINE [address] [place], [place] [id number] Atiya Ruelas NP [address] [place] [address] Letter for School/Work Social History Tobacco Use Types Packs/Day Years [...] encounter Miscellaneous Notes * Telephone Encounter - Janie Edmondson RN - 08/15/2023 2:30 PM EST HERNANI T/C to pt. For below request to inquery why she cannot take COVID vaccine, No answer. LVM to call back on [phone]. * Telephone Encounter - Betty Willis - 08/15/2023 1:03 PM EST Tc from pt requesting a letter for school stating that pt can not take covid vaccine due to medicalcomplications, please contact pt. Pt sated need letter before August 20 documented in this encounter Plan of Treatment Upcoming Encounters Date Type Department Care Team (Late st Contact Info) Description 07/05/2025 10:00 AM EST Office Visit [facility] OPTOMETRY [address] [place] [address] Antonia White, OD [address] [place] [address] 07/22/2025 10:15 AM EST Office Visit [facility] MEDICINE [address] [place] [address] Lisandra Machado, ALYSSA [address] [place] [address] documented as of this encounter Visit Diagnoses Not on filedocumented in this encounter Care Teams Cooperative Education Director Relationship Specialty Start Date End Date Atiya Ruelas NP [address] [place] [address] PCP - General Family Medicine 04/22/23 05/18/24 Lisandra Machado NP [address] [place] [address] PCP - General Family Medicine 05/19/24 Shanell Ariza Snap Shearer 04/30/24 documented as of this encounter
--- OUTSIDE RECORDS SUMMARY | 2025-05-25 13:37 | XMS_ITS | Encounter Summary ---
Author Organization [employer] [facility] Address [address] [place] [address] 7 [place] [address] Care Team Providers Care Lunch Truck Operator Name Role Phone Melani AvalosP Primary Care Provider Sandi Atiya Mayen LAMINATING MACHINE OPERATOR HELPER Primary Care Provider [phone] Lisandra Machado LAMINATING MACHINE OPERATOR HELPER Primary Care Provider [phone] Encounter Details Date Type Department Care Team (Late Contact Info) Description 02/12/2023 Abstract [facility] MEDICINE [address] [place] [id number] Melain Avalos FNP Social History Tobacco Use Types Packs/Day Years [...] Description 07/05/2025 10:00 AM EST Office Visit [facility] OPTOMETRY [address] [place] [address] Antonia White, NICOLAS [address] [place] [address] 07/22/2025 10:15 AM EST Office Visit [facility] MEDICINE [address] [place] [phone] Lisandra Machado NP [address] [place] [address] documented as of this encounter Visit Diagnoses Not on filedocumented in this encounter Care Teams Lunch Truck Operator Relationship Specialty Start Date End Date Melani Avalos FNP PCP - General Family Medicine 03/10/22 04/21/23 Atiya Ruelas NP [address] [place] [address] PCP - General Family Medicine 04/22/23 05/18/24 Lisandra Machado NP [address] [place] [address] PCP - General Family Medicine 05/19/24 Shanell Ariza Net Fisher 04/30/24 documented as of this encounter
--- OUTSIDE RECORDS SUMMARY | 2025-05-25 13:38 | XMS_ITS | Encounter Summary ---
Author Organization Located Within [facility] Address [address] [facility] [address] [place] [phone] Phone Care Team Providers Care Photographer Finish Name Role Phone Unknown, Unknown Unavailable Unavailable Tamiko Cui STRUCTURAL STEEL WORKER HELPER Primary Care Pr ovider Unknown, Unknown Primary Care Provider Atiya Madsen SALES PRODUCT SPECIALIST Primary Care Provider + Lisandra Machado SALES PRODUCT SPECIALIST Primary Care Provider [phone] Encounter Details Date Type Department Care Team (Late st Contact Info) Description 12/06/2022 Procedure Pass [facility] [place] [address] [place] [id number] Social History Tobacco Use Types Packs/Day Years Used Date Smoking Tobacco: Never Smokeless Tobacco: Never Alcohol Use Standard Drinks/Week Comments Never 0 (1 standard drink = 0.6 oz pur e alcohol) Education Answer Date Recorded Are you interested in more education? Not on trey e 11/07/2022 Are you concerned about learning? Not on file 11/07/2022 No 11/07/2022 No 11/07/2022 Digital Access Answer Date Recorded No 12/04/2022 No 12/04/2022 Reliable internet access at home? Not on file 12/04/2022 Device with a working camera? Not on file Intimate Partner Violence Answer Date R ecorded Are you denied basic needs s uch as food, clothing, or medical care? No 12/06/2022 In the past 12 months have y ou been in a relationship with a person who hurts, threatens, or tries to control you? No 12/06/2022 Are you denied basic needs s uch as food, clothing, or medical care? No 12/06/2022 In the past 12 months have y ou been in a relationship with a person who hurts, threatens, or tries to control you? No 12/06/2022 Comments No Sex and Gender Information Value [...] 3:00 PM EST Office Visit [facility] [address] [place] [phone] Tiffanie Juares MD [address] [address] Jessy Smith [address] [place] [address] documented as of this encounter Visit Diagnoses Not on filedocumented in this encounter Care Teams Photographer Finish Relationship Specialty Start Date End Date Tamiko Cui CNP [address] [place] [phone] PCP - General 04/17/21 10/05/23 Unknown, Unknown, PCP - General 10/06/23 12/12/23 Atiya Ruelas NP [address] [place] [address] PCP - General Nurse Practitioner 12/13/23 04/12/24 Lisandra Machado NP [address] [place] [address] PCP - General Nurse Practitioner 04/13/24 Unknown, Unknown, 03/29/21 documented as of this encounter Additional Source Comments The information contained in this document represents components of the legal health record. It is not the complete legal health record.Located Within [facility]
== END 2025-05-25 11:38 | disposition home or self-care (01) ==
LOC: HO.HWS 11:02
PROVIDERS: Visit Provider Obstetrics & Gynecology
DX: Z01.419 Encounter for gynecological examination (general) (routine) without abnormal findings (principal)
CPT/HCPCS: 99395; 99459

== ENCOUNTER 2025-05-25 11:02 | Outpatient (REF) | payer MEDICAID, SELFPAY | END 2025-05-25 11:03 | disposition home or self-care (01) | LOC: HO.LNP 11:02 | PROVIDERS: Visit Provider Obstetrics & Gynecology | DX: Z01.419 Encounter for gynecological examination (general) (routine) without abnormal findings (principal) | CPT/HCPCS: 88175; 99395 ==